=== PATIENT | female | born 1955 | race American Indian/Alaskan Native ===

== ENCOUNTER 2019-09-28 20:53 | Emergency (ER) | payer MEDICAID ==
--- NOTE | 2019-09-28 21:14 | EDM.PDOC ---
ED HPI GENERAL MEDICAL PROBLEM - General Chief Complaint: General Stated Complaint: MEDICAL CLEARANCE Time Seen by Provider: 09/28/19 20:56 Source of Information: Reports: Patient History Limitations: Reports: No Limitations - History of Present Illness INITIAL COMMENTS - FREE TEXT/NARRATIVE: HISTORY AND PHYSICAL: History of present illness: Patient is a 64-year-old female who presents to the emergency room with law enforcement for medical screening exam. Law enforcement states they brought her in as she has a history of hypertension and diabetes wanted to make sure she was cleared to go to [facility]. Patient offers no current complaints or concerns and states she would not be here in the emergency room if she was not brought by law enforcement. She states she has medications at home although does not know what medicine she takes. Denies any alcohol or drug abuse. Review of systems: As per history of present illness and below otherwise all systems reviewed and negative. Past medical history: As per history of present illness and as reviewed below otherwise noncontributory. Surgical history: As per history of present illness and as reviewed below otherwise noncontributory. Social history: See social history for further information Family history: As per history of present illness and as reviewed below otherwise noncontributory. Physical exam: General: Well-developed and well-nourished 64-year-old female. Alert and oriented. Nontoxic-appearing and in no acute distress. HEENT: Atraumatic, normocephalic, pupils equal and reactive bilaterally, negative for conjunctival pallor or scleral icterus, mucous membranes moist, TMs normal bilaterally, throat clear, neck supple, nontender, trachea midline. No drooling or trismus noted. No meningeal signs. No hot potato voice noted. Lungs: Clear to auscultation, breath sounds equal bilaterally, chest nontender. Heart: S1S2, regular rate and rhythm without overt murmur Abdomen: Soft, nondistended, nontender. Skin: Intact, warm, dry. No lesions or rashes noted. Extremities: Atraumatic, moves all extremities per self without difficulty or deficits. Neurovascular unremarkable. Neuro: Awake, alert, oriented. Cranial nerves II through XII unremarkable. Cerebellum unremarkable. Motor and sensory unremarkable throughout. Exam nonfocal. Notes: Patient states she has her medications available to her at home although does not remember the medication she takes. Her vital signs are currently stable and she is cleared to be discharged with law enforcement. Supportive care measures were reviewed and discussed. Voices understanding and is agreeable to plan of care. Denies any further questions or concerns at this time. Diagnostics: None Therapeutics: None Prescription: None Impression: Encounter for medical screening exam Plan: 1. Please use Tylenol and/or Ibuprofen as needed for pain and fever management. 2. Take your home medications as prescribed when able 3. Please follow up with your primary care provider. Return to the ED as needed as discussed. Definitive disposition and diagnosis as appropriate pending reevaluation and review of above. - Related Data Allergies Allergy/AdvReac Type Severity Reaction Status Date / Time No Known Allergies Allergy Verified 01/26/14 21:41 Home Meds: Home Meds Aspirin [[place] Aspirin EC] 81 mg PO DAILY 08/03/16 [History] Brimonidine Tartrate [Brimonidine Tartrate 0.2% Ophth Soln] 1 drop EYEBOTH DAILY 08/03/16 [History] Dorzolamide HCl/Timolol Maleat [Dorzolamide-Timolol Eye Drops] 1 drop EYEBOTH DAILY 08/03/16 [History] Gabapentin [Neurontin] 2 tab PO TID 08/03/16 [History] Glimepiride [Amaryl] 4 mg PO DAILY 08/03/16 [History] Latanoprost [Xalatan 0.005% Ophth Soln] 1 drop EYEBOTH DAILY 08/03/16 [History] Lisinopril 20 mg PO DAILY 08/03/16 [History] Multivitamin [Multivitamins] 1 tab PO DAILY 08/03/16 [History] metFORMIN HCl [Metformin HCl ER] 750 mg PO BEDTIME 08/03/16 [History] Cholecalciferol (Vitamin D3) [Vitamin D3] 1,000 units PO DAILY 08/08/16 [History ] Diclofenac Sodium [Voltaren] 1 applic TOP ASDIRECTED PRN 08/08/16 [History] Estradiol Valerate 1 injection IM ASDIRECTED 08/08/16 [History] Furosemide 20 mg PO DAILY 08/08/16 [History] Pramipexole [Mirapex] 1 tab PO BEDTIME 08/08/16 [History] Past Medical History HEENT History: Reports: Glaucoma, Other (See Below) Other HEENT History: wears glasses, has top denture Cardiovascular History: Reports: Hypertension Genitourinary History: Reports: None Endocrine/Metabolic History: Reports: Diabetes, Type II, Obesity/BMI 30+ - Past Surgical History Female Surgical History: Reports: Hysterectomy, Salpingo-Oophorectomy ED ROS GENERAL - Review of Systems Review Of Systems: Comprehensive ROS is negative, except as noted in HPI. ED EXAM, GENERAL - Physical Exam Exam: See Below (See dictation) Departure - Departure Time of Disposition: 21:22 Disposition: Home, Self-Care 01 Clinical Impression: Encounter for medical screening examination - Discharge Information Referrals: PCP,None [Primary Care Provider] - Forms: ED Department Discharge Additional Instructions: The following information is given to patients seen in the emergency department who are being discharged to home. This information is to outline your options for follow-up care. We provide all patients seen in our emergency department with a follow-up referral. The need for follow-up, as well as the timing and circumstances, are variable depending upon the specifics of your emergency department visit. If you don't have a primary care physician on staff, we will provide you with a referral. We always advise you to contact your personal physician following an emergency department visit to inform them of the circumstance of the visit and for follow-up with them and/or the need for any referrals to a consulting specialist. The emergency department will also refer you to a specialist when appropriate. This referral assures that you have the opportunity for follow-up care with a specialist. All of these measure are taken in an effort to provide you with optimal care, which includes your follow-up. Under all circumstances we always encourage you to contact your private physician who remains a resource for coordinating your care. When calling for follow-up care, please make the office aware that this follow-up is from your recent emergency room visit. If for any reason you are refused follow-up, please contact the [facility] Emergency Department at and asked to speak to the emergency department charge nurse. [facility] [address] [place] [id number] [address] 1. Please use Tylenol and/or Ibuprofen as needed for pain and fever management. 2. Take your home medications as prescribed when able 3. Please follow up with your primary care provider. Return to the ED as needed as discussed. Sepsis Event Note - Focused Exam Date Exam was Performed: 09/28/19 Time Exam was Performed: 21:17
[2019-09-28 21:22] VITALS: BP 140/74; PULSE 89
== END 2019-09-28 21:25 | disposition home or self-care (01) ==
LOC: MW.ED 20:53
DX: Z02.89 Encounter for other administrative examinations (principal); E11.9 Type 2 diabetes mellitus without complications; I10 Essential (primary) hypertension; E66.9 Obesity, unspecified; Z68.30 Body mass index [BMI] 30.0-30.9, adult; Z79.82 Long term (current) use of aspirin; Z79.899 Other long term (current) drug therapy
CPT/HCPCS: 99283

== ENCOUNTER 2019-11-18 09:41 | Emergency (ER) | payer MEDICAID ==
[2019-11-18 10:07] VITALS: BP 140/71
--- NOTE | 2019-11-18 10:17 | EDM.PDOC ---
ED HPI GENERAL MEDICAL PROBLEM - General Chief Complaint: Lower Extremity Injury/Pain Stated Complaint: LEG PAIN Time Seen by Provider: 11/18/19 09:57 Source of Information: Reports: Patient History Limitations: Reports: No Limitations - History of Present Illness INITIAL COMMENTS - FREE TEXT/NARRATIVE: HISTORY AND PHYSICAL: History of present illness: Patient is a 64-year-old female who presents the ED today with concern of left thigh pain that began over the past 3 to 4 days. Patient states she noticed it when she was sitting on the couch and it began as a dull ache. Patient states since then it has continued to worsen and patient states that it radiates down into the left calf and up into the left hip. Patient denies any falls or injuries. Denies any saddle anesthesia or loss or retention of bowel bladder function. Patient denies fever, chills, chest pain, shortness of breath, or cough. Denies headache, neck stiff ness, change in vision, syncope, or near syncope. Denies nausea, vomiting, abdominal pain, diarrhea, constipation, or dysuria. Has not noted any blood in urine or stool. Patient has been eating and drinking appropriately. Review of systems: As per history of present illness and below otherwise all systems reviewed and negative. Past medical history: As per history of present illness and as reviewed below otherwise noncontributory. Surgical history: As per history of present illness and as reviewed below otherwise noncontributory. Social history: See social history for further information Family history: As per history of present illness and as reviewed below otherwise noncontributory. Physical exam: General: Patient is alert, oriented, and in no acute distress. Patient sitting comfortably on exam table. HEENT: Atraumatic, normocephalic, pupils equal and reactive bilaterally, negative for conjunctival pallor or scleral icterus, mucous membranes moist, TMs normal bilaterally, throat clear, neck supple, nontender, trachea midline. No drooling or trismus noted. No meningeal signs. No hot potato voice noted. Lungs: Clear to auscultation, breath sounds equal bilaterally, chest nontender. Heart: S1S2, regular rate and rhythm without overt murmur Abdomen: Soft, nondistended, nontender. Negative for masses or hepatosplenomegaly. Negative for costovertebral tenderness. Pelvis: Stable nontender. Genitourinary: Deferred. Rectal: Deferred. Skin: Intact, warm, dry. No lesions or rashes noted. Extremities: No obvious deformity of the complete spine. No step-offs, crepitus , or point tenderness to palpation of the complete spine. Patient does have pain with palpation of the left SI joint as well as pain with the posterior left thigh and let calf with palpation. No obvious deformity of the complete left extremity. Dorsalis pedis and posterior tibial pulses are grossly intact bilaterally with capillary refill less than 2 seconds. Patient has full range of motion of complete bilateral lower extremities without pain or difficulty. No erythema, warmth, or edema noted of bilateral lower extremities. Otherwise, Atraumatic, negative for cords. Neurovascular unremarkable. Neuro: Awake, alert, oriented. Cranial nerves II through XII unremarkable. Cerebellum unremarkable. Motor and sensory unremarkable throughout. Exam nonfocal. Notes: Discussed importance for follow-up with a primary care provider or orthopedic provider. Voices understanding and is agreeable to plan of care. Denies any further questions or concerns at this time. Diagnostics: Femur XR, Lumbar XR, Venous LE US Therapeutics: None Prescription: None Impression: Left leg pain Plan: 1. Rest, ice, elevate the affected extremity. You can apply ice and or heat 15 minutes on, 15 minutes off. 2. Tylenol as directed for pain management or discomfort. 3. Follow up with the Orthopedic provider and primary care provider as discussed. Return to the ED as needed and as discussed. Definitive disposition and diagnosis as appropriate pending reevaluation and review of above. Left Leg Pain Score (Numeric/FACES): 8 - Related Data Allergies Allergy/AdvReac Type Severity Reaction Status Date / Time No Known Allergies Allergy Verified 11/18/19 10:03 Home Meds: Home Meds Aspirin [[place] Aspirin EC] 81 mg PO DAILY 08/03/16 [History] Brimonidine Tartrate [Brimonidine Tartrate 0.2% Ophth Soln] 1 drop EYEBOTH DAILY 08/03/16 [History] Dorzolamide HCl/Timolol Maleat [Dorzolamide-Timolol Eye Drops] 1 drop EYEBOTH DAILY 08/03/16 [History] Gabapentin [Neurontin] 2 tab PO TID 08/03/16 [History] Glimepiride [Amaryl] 4 mg PO DAILY 08/03/16 [History] Latanoprost [Xalatan 0.005% Ophth Soln] 1 drop EYEBOTH DAILY 08/03/16 [History] Lisinopril 20 mg PO DAILY 08/03/16 [History] Multivitamin [Multivitamins] 1 tab PO DAILY 08/03/16 [History] metFORMIN HCl [Metformin HCl ER] 750 mg PO BEDTIME 08/03/16 [History] Cholecalciferol (Vitamin D3) [Vitamin D3] 1,000 units PO DAILY 08/08/16 [History ] Diclofenac Sodium [Voltaren] 1 applic TOP ASDIRECTED PRN 08/08/16 [History] Estradiol Valerate 1 injection IM ASDIRECTED 08/08/16 [History] Furosemide 20 mg PO DAILY 08/08/16 [History] Pramipexole [Mirapex] 1 tab PO BEDTIME 08/08/16 [History] Past Medical History HEENT History: Reports: Glaucoma, Other (See Below) Other HEENT History: wears glasses, has top denture Cardiovascular History: Reports: Hypertension Genitourinary History: Reports: None Endocrine/Metabolic History: Reports: Diabetes, Type II, Obesity/BMI 30+ - Past Surgical History Head Surgeries/Procedures: Reports: None GI Surgical History: Reports: Cholecystectomy Female Surgical History: Reports: Hysterectomy, Salpingo-Oophorectomy Social & Family History - Family History Family Medical History: Noncontributory - Tobacco Use Smoking Status *Q: Never Smoker Second Hand Smoke Exposure: No - Caffeine Use Caffeine Use: Reports: Coffee, Soda - Recreational Drug Use Recreational Drug Use: No Review of Systems - Review of Systems Review Of Systems: Comprehensive ROS is negative, except as noted in HPI. ED EXAM, GENERAL - Physical Exam Exam: See Below (see dictation) Course - Vital Signs Last Recorded V/S: Last Vital Signs Temp 96.1 F L 11/18/19 10:04 Pulse 63 11/18/19 10:04 Resp 16 11/18/19 10:04 BP 140/71 11/18/19 10:04 Pulse Ox 93 L 11/18/19 10:04 Departure - Departure Time of Disposition: 11:51 Disposition: Home, Self-Care 01 Clinical Impression: Left leg pain - Discharge Information Referrals: Lisette Casillas [employer] [Primary Care Provider] - Forms: ED Department Discharge Additional Instructions: The following information is given to patients seen in the emergency department who are being discharged to home. This information is to outline your options for follow-up care. We provide all patients seen in our emergency department with a follow-up referral. The need for follow-up, as well as the timing and circumstances, are variable depending upon the specifics of your emergency department visit. If you don't have a primary care physician on staff, we will provide you with a referral. We always advise you to contact your personal physician following an emergency department visit to inform them of the circumstance of the visit and for follow-up with them and/or the need for any referrals to a consulting specialist. The emergency department will also refer you to a specialist when appropriate. This referral assures that you have the opportunity for follow-up care with a specialist. All of these measure are taken in an effort to provide you with optimal care, which includes your follow-up. Under all circumstances we always encourage you to contact your private physician who remains a resource for coordinating your care. When calling for follow-up care, please make the office aware that this follow-up is from your recent emergency room visit. If for any reason you are refused follow-up, please contact the [facility] Emergency Department at and asked to speak to the emergency department charge nurse. [facility] [address] [place] [phone] [address] [facility] [address], [address] [place] [address] 1. Rest, ice, elevate the affected extremity. You can apply ice and or heat 15 minutes on, 15 minutes off. 2. Tylenol as directed for pain management or discomfort. 3. Follow up with the Orthopedic provider and primary care provider as discussed. Return to the ED as needed and as discussed. Sepsis Event Note - Evaluation Sepsis Screening Result: No Definite Risk - Focused Exam Vital Signs: Vital Signs Temp Pulse Resp BP Pulse Ox 11/18/19 10:04 96.1 F L 63 16 140/71 93 L Date Exam was Performed: 11/18/19 Time Exam was Performed: 11:50
--- NOTE | 2019-11-18 11:35 | CR ---
Left femur: AP and lateral views left femur were obtained. Comparison: No prior femur exam. Mild joint space narrowing is seen superiorly within the left hip. Mild medial joint space narrowing is noted within the left knee. No acute fracture or other abnormality is identified. Impression: 1. Degenerative change as noted above. 2. Nothing acute is appreciated on 2 view left femur study. Diagnostic code #2 This report was dictated in [place] Standard Time
--- NOTE | 2019-11-18 11:35 | US ---
Left lower extremity deep venous ultrasound: Duplex and color Doppler evaluation was obtained of the left common femoral, superficial femoral, popliteal, posterior tibial and peroneal veins. Comparison: No previous venous imaging. Findings: Normal phasic flow, augmentation and compression is seen. Impression: 1. No evidence of deep venous thrombosis within the left lower extremity. Diagnostic code #1 This report was dictated in [place] Standard Time
--- NOTE | 2019-11-18 11:35 | CR ---
Lumbar spine: AP, lateral and coned-down lateral view centered to the lumbosacral junction are obtained. Moderate to severe disc space narrowing noted at L2-3 and L3-4. Mild disc space narrowing at L4-5. Vertebral body heights are maintained. Scattered endplate osteophytes are seen. Minimal scoliosis is noted. Pedicles are intact. Visualized transverse and spinous processes are intact. Vascular calcification is noted. Surgical clips are seen from prior cholecystectomy. Impression: 1. Mild degenerative change as noted above. 2. Nothing acute is seen. Diagnostic code #2 This report was dictated in [place] Standard Time
[2019-11-18] MEDS ORDERED: Ketorolac 30 MG/ML SDV IM ONE (11:56)
[2019-11-18 12:45] VITALS: PULSE 64
== END 2019-11-18 12:45 | disposition home or self-care (01) ==
LOC: MW.ED 09:41
DX: M79.652 Pain in left thigh (principal); I10 Essential (primary) hypertension; E11.9 Type 2 diabetes mellitus without complications; E66.9 Obesity, unspecified; Z68.30 Body mass index [BMI] 30.0-30.9, adult; Z79.84 Long term (current) use of oral hypoglycemic drugs; Z79.899 Other long term (current) drug therapy
CPT/HCPCS: 72100; 73552; 93971; 96372; 99284; J1885

== ENCOUNTER 2020-06-11 09:53 | Inpatient (IN) | payer MEDICAID, OTHER ==
[2020-06-11] MEDS ORDERED: Dexamethasone 10 MG/ML SDV IVPUSH ONE (10:28)
--- NOTE | 2020-06-11 10:40 | EDM.PDOC ---
ED HPI GENERAL MEDICAL PROBLEM - General Chief Complaint: Cardiovascular Problem Stated Complaint: difficulty breathing Time Seen by Provider: 06/11/20 10:17 Source of Information: Reports: Patient History Limitations: Reports: No Limitations - History of Present Illness INITIAL COMMENTS - FREE TEXT/NARRATIVE: HISTORY AND PHYSICAL: History of present illness: Patient is a 64-year-old female who presents to the ED today with concern of shortness of breath and cough that started yesterday. Patient states that her shortness of breath is worsened today and felt like she cannot breathe so came to the emergency room to be evaluated. Patient states that she has not been in contact with any COVID positive patients that she is aware of. Patient states that she has not taken anything for her symptoms. Patient states she has a history of type 2 diabetes on oral medications and denies any other health history. Patient denies fever, chills, chest pain. Denies headache, neck stiff ness, change in vision, syncope, or near syncope. Denies nausea, vomiting, abdominal pain, diarrhea, constipation, or dysuria. Has not noted any blood in urine or stool. Patient has been eating and drinking appropriately. Review of systems: As per history of present illness and below otherwise all systems reviewed and negative. Past medical history: As per history of present illness and as reviewed below otherwise noncontributory. Surgical history: As per history of present illness and as reviewed below otherwise noncontributory. Social history: See social history for further information Family history: As per history of present illness and as reviewed below otherwise noncontributory. Physical exam: General: Patient is alert, oriented, and in no acute distress. Patient sitting comfortably on exam table but tired appearing. HEENT: Atraumatic, normocephalic, pupils equal and reactive bilaterally, negative for conjunctival pallor or scleral icterus, mucous membranes moist, TMs normal bilaterally, throat clear, neck supple, nontender, trachea midline. No drooling or trismus noted. No meningeal signs. No hot potato voice noted. Lungs: Patient speaking clearly without breathlessness, tachypneic but comfortable appearing, no wheezing or stridor, no accessory muscle use or respiratory distress. Auscultation deferred due to current COV-ID 19 outbreak. Heart:Auscultation deferred due to current COV-ID 19 outbreak. Abdomen: Soft, nondistended, nontender. Negative for masses or hepatosplenomegaly. Negative for costovertebral tenderness. Pelvis: Stable nontender. Genitourinary: Deferred. Rectal: Deferred. Skin: Intact, warm, dry. No lesions or rashes noted. Extremities: Atraumatic, negative for cords or calf pain. Neurovascular unremarkable. Neuro: Awake, alert, oriented. Cranial nerves II through XII unremarkable. Cerebellum unremarkable. Motor and sensory unremarkable throughout. Exam nonfocal. Notes: Dr. Garcia directly involved in patient care. 86-88% on RA, tachypneic but comfortable appearing. 94% on 2L NC, does remain tachypneic throughout ED stay but continually monitored. Called and spoke to Dr. Shine, hospitalist workers compensation claims supervisor, and will admit inpatient on telemetry. Voices understanding and is agreeable to plan of care. Denies any further questions or concerns at this time. Diagnostics: EKG, CBC, CMP, UA, troponin, chest x-ray, d-dimer, ABG, COVID, PT/INR, PTT, Procalcitonin, CRP, ang chest Therapeutics: Saline lock, Decadron, Rocephin 1g IV, Azithromycin 500mg IV Impression: COVID-19 pneumonia Hypoxia Plan: Inpatient admission to Dr. Shine on telemetry Definitive disposition and diagnosis as appropriate pending reevaluation and review of above. - Related Data Allergies Allergy/AdvReac Type Severity Reaction Status Date / Time No Known Allergies Allergy Verified 06/11/20 10:12 Home Meds: Home Meds Aspirin [[place] Aspirin EC] 81 mg PO DAILY 08/03/16 [History] Brimonidine Tartrate [Brimonidine Tartrate 0.2% Ophth Soln] 1 drop EYEBOTH BID 08/03/16 [History] Dorzolamide HCl/Timolol Maleat [Dorzolamide-Timolol Eye Drops] 1 drop EYEBOTH ACBREAKFAST 08/03/16 [History] Glimepiride [Amaryl] 8 mg PO DAILY 08/03/16 [History] Latanoprost [Xalatan 0.005% Ophth Soln] 1 drop EYEBOTH BEDTIME 08/03/16 [History] Multivitamin [Multivitamins] 1 tab PO DAILY 08/03/16 [History] Cholecalciferol (Vitamin D3) [Vitamin D3] 1,000 units PO DAILY 08/08/16 [History] Estradiol Valerate 1 injection IM ASDIRECTED 08/08/16 [History] Furosemide 20 mg PO DAILY 08/08/16 [History] Empagliflozin [Jardiance] 25 mg PO DAILY 06/11/20 [History] Linagliptin [Tradjenta] 5 mg PO DAILY 06/11/20 [History] Loperamide [Imodium] 4 mg PO ASDIRECTED 06/11/20 [History] Losartan [Cozaar] 100 mg PO DAILY 06/11/20 [History] Pioglitazone [Actos] 45 mg PO DAILY 06/11/20 [History] Pregabalin [Lyrica] 75 mg PO TID 06/11/20 [History] traMADol [Ultram] 50 mg PO Q6H PRN 06/11/20 [History] Past Medical History HEENT History: Reports: Glaucoma, Other (See Below) Other HEENT History: wears glasses, has top denture Cardiovascular History: Reports: Hypertension Genitourinary History: Reports: None Endocrine/Metabolic History: Reports: Diabetes, Type II, Obesity/BMI 30+ - Past Surgical History Head Surgeries/Procedures: Reports: None GI Surgical History: Reports: Cholecystectomy Female Surgical History: Reports: Hysterectomy, Salpingo-Oophorectomy Social & Family History - Family History Family Medical History: Noncontributory - Tobacco Use Smoking Status *Q: Never Smoker - Caffeine Use Caffeine Use: Reports: Coffee, Soda - Recreational Drug Use Recreational Drug Use: No ED ROS GENERAL - Review of Systems Review Of Systems: Comprehensive ROS is negative, except as noted in HPI. ED EXAM, GENERAL - Physical Exam Exam: See Below (see dictation) Course - Vital Signs Last Recorded V/S: Last Vital Signs Temp 97.8 F 06/11/20 20:16 Pulse 81 06/11/20 20:16 Resp 18 06/11/20 20:16 BP 145/73 H 06/11/20 20:16 Pulse Ox 92 L 06/11/20 20:16 - Orders/Labs/Meds Orders: Active Orders 24 hr Category Date Time Status Cardiac Monitoring [RC] . DIRECTED Care 06/11/20 10:18 Active EKG 12 Lead [EKG Documentation Completion] [RC] ROUTINE Care 06/11/20 10:05 Active PROCALCITONIN [REF] Stat Lab 06/11/20 10:01 Received UA RFX CAROL AND CULT IF INDIC [URIN] Stat Lab 06/11/20 10:18 Ordered Azithromycin [Zithromax] Med 06/11/20 13:45 Active 500 mg PO Q24H Azithromycin [Zithromax] 500 mg Med 06/11/20 13:45 Active Sodium Chloride 0.9% [Normal Saline (AdvBag)] 250 ml IV ONETIME Enoxaparin [Lovenox] Med 06/11/20 21:00 Active 40 mg SUBCUT Q12HR Sodium Chloride 0.9% [Saline Flush] Med 06/11/20 10:18 Active 10 ml FLUSH ASDIRECTED PRN Sodium Chloride 0.9% [Saline Flush] Med 06/11/20 10:18 Active 2.5 ml FLUSH ASDIRECTED PRN cefTRIAXone [Rocephin] 1 gm Med 06/11/20 13:45 Active Sodium Chloride 0.9% [Normal Saline] 50 ml IV Q24H dexAMETHasone Med 06/12/20 09:00 Active 6 mg PO DAILY Saline Lock Insert [OM.PC] Stat Oth 06/11/20 10:18 Ordered Medication Orders Acetaminophen (Tylenol) 650 mg PO Q4H PRN PRN Reason: Pain (Mild 1-3)/fever Albuterol/Ipratropium (Duoneb 3.0-0.5 Mg/3 Ml) 3 ml NEB Q4HRRT PRN PRN Reason: Shortness of Breath Albuterol/Ipratropium (Combivent Respimat) 0 gm INH Q4H PRN PRN Reason: Dyspnea Azithromycin (Zithromax) 500 mg PO Q24H [facility] Last Admin: 06/11/20 14:54 Dose: 500 mg Documented by: ROSINA Dexamethasone (Dexamethasone) 6 mg PO DAILY [facility] Enoxaparin Sodium (Lovenox) 40 mg SUBCUT Q12HR [facility] Last Admin: 06/11/20 20:20 Dose: 40 mg Documented by: BOGDAN Azithromycin 500 mg/ Sodium (Chloride) 250 mls @ 250 mls/hr IV ONETIME [facility] Ceftriaxone Sodium 1 gm/ (Sodium Chloride) 50 mls @ 100 mls/hr IV Q24H [facility] Last Admin: 06/11/20 14:53 Dose: 100 mls/hr Documented by: ROSINA Remdesivir 100 mg/ Sodium (Chloride) 100 mls @ 100 mls/hr IV Q24H [facility] Insulin Aspart (Novolog) 0 unit SUBCUT TIDAC [facility]; Protocol Last Admin: 06/11/20 18:39 Dose: Not Given Documented by: ALEXIA Non-Formulary Medication (Losartan) 100 mg PO DAILY [facility] Pregabalin (Lyrica) 75 mg PO TID [facility] Last Admin: 06/11/20 18:30 Dose: 75 mg Documented by: ALEXIA Sodium Chloride (Saline Flush) 10 ml FLUSH ASDIRECTED PRN PRN Reason: Keep Vein Open Last Admin: 06/11/20 10:46 Dose: 10 ml Documented by: LES Sodium Chloride (Saline Flush) 2.5 ml FLUSH ASDIRECTED PRN PRN Reason: Keep Vein Open Last Admin: 06/11/20 10:46 Dose: 2.5 ml Documented by: LES Tramadol HCl (Ultram) 50 mg PO Q6H PRN PRN Reason: Pain Labs: Laboratory Tests 06/11/20 06/11/20 06/11/20 Range/Units 10:01 10: 10:01 WBC 8.46 (4.0-11.0) K/uL RBC 5.40 (4.30-5.90) M/uL Hgb 15.9 (12.0-16.0) g/dL Hct 49.6 H (36.0-46.0) % MCV 91.9 (80.0-98.0) fL MCH 29.4 (27.0-32.0) pg MCHC 32.1 (31.0-37.0) g/dL RDW Std Deviation 51.3 (28.0-62.0) fl RDW Coeff of Alec 15 (11.0-15.0) % Plt Count 208 (150-400) K/uL MPV 10.00 (7.40-12.00) fL Add Manual Diff YES Neutrophils % (Manual) 76 (48.0-80.0) % Band Neutrophils % 6 % Lymphocytes % (Manual) 17 (16.0-40.0) % Monocytes % (Manual) 1 (0.0-15.0) % Nucleated RBC % 0.0 /100WBC Absolute Seg Neuts 6.4 H (1.4-5.7) Band Neutrophils # 0.5 Lymphocytes # (Manual) 1.4 (0.6-2.4) Monocytes # (Manual) 0.1 (0.0-0.8) Nucleated RBCs # 0 K/uL INR APTT (18.6-31.3) SEC D-Dimer, Quantitative 1.00 H (0.0-0.50) mg/L FEU ABG pH (7.35-7.45) ABG pCO2 (35-45) mmHG ABG pO2 (75-100) mmHG ABG HCO3 (22-26) mEq/L ABG Total CO2 ABG Base Excess (-2.0-2.0) Sodium 138 (136-145) mmol/L Potassium 3.2 L (3.5-5.1) mmol/L Chloride 101 (98-107) mmol/L Carbon Dioxide 26.7 (21.0-32.0) mmol/L BUN 9 (7.0-18.0) mg/dL Creatinine 0.7 (0.6-1.0) mg/dL Est Cr Clr Drug Dosing 74.02 mL/min Estimated GFR (MDRD) > 60.0 ml/min Glucose 54 L (74-106) mg/dL Calcium 8.5 (8.5-10.1) mg/dL Total Bilirubin 0.7 (0.2-1.0) mg/dL AST 39 H (15-37) IU/L ALT 36 (14-63) IU/L Alkaline Phosphatase 88 (46-116) U/L Troponin I < 0.050 (0.000-0.056) ng/mL C-Reactive Protein (0.00-0.90) mg/dL Total Protein 8.0 (6.4-8.2) g/dL Albumin 3.3 L (3.4-5.0) g/dL Globulin 4.7 H (2.6-4.0) g/dL Albumin/Globulin Ratio 0.7 L (0.9-1.6) Lipase 197 (73-393) U/L SARS-CoV-2 RNA (MARBELLA) (NEGATIVE) 06/11/20 06/11/20 06/11/20 Range/Units 10: 10: 10:31 WBC (4.0-11.0) K/uL RBC (4.30-5.90) M/uL Hgb (12.0-16.0) g/dL Hct (36.0-46.0) % MCV (80.0-98.0) fL MCH (27.0-32.0) pg MCHC (31.0-37.0) g/dL RDW Std Deviation (28.0-62.0) fl RDW Coeff of Alec (11.0-15.0) % Plt Count (150-400) K/uL MPV (7.40-12.00) fL Add Manual Diff Neutrophils % (Manual) (48.0-80.0) % Band Neutrophils % % Lymphocytes % (Manual) (16.0-40.0) % Monocytes % (Manual) (0.0-15.0) % Nucleated RBC % /100WBC Absolute Seg Neuts (1.4-5.7) Band Neutrophils # Lymphocytes # (Manual) (0.6-2.4) Monocytes # (Manual) (0.0-0.8) Nucleated RBCs # K/uL INR 0.98 APTT 32.2 H (18.6-31.3) SEC D-Dimer, Quantitative (0.0-0.50) mg/L FEU ABG pH 7.428 (7.35-7.45) ABG pCO2 39 (35-45) mmHG ABG pO2 60 L (75-100) mmHG ABG HCO3 26 (22-26) mEq/L ABG Total CO2 22.4 ABG Base Excess 1.2 (-2.0-2.0) Sodium (136-145) mmol/L Potassium (3.5-5.1) mmol/L Chloride (98-107) mmol/L Carbon Dioxide (21.0-32.0) mmol/L BUN (7.0-18.0) mg/dL Creatinine (0.6-1.0) mg/dL Est Cr Clr Drug Dosing mL/min Estimated GFR (MDRD) ml/min Glucose (74-106) mg/dL Calcium (8.5-10.1) mg/dL Total Bilirubin (0.2-1.0) mg/dL AST (15-37) IU/L ALT (14-63) IU/L Alkaline Phosphatase (46-116) U/L Troponin I (0.000-0.056) ng/mL C-Reactive Protein 12.80 H (0.00-0.90) mg/dL Total Protein (6.4-8.2) g/dL Albumin (3.4-5.0) g/dL Globulin (2.6-4.0) g/dL Albumin/Globulin Ratio (0.9-1.6) Lipase (73-393) U/L SARS-CoV-2 RNA (MARBELLA) (NEGATIVE) 06/11/20 Range/Units 10:49 WBC (4.0-11.0) K/uL RBC (4.30-5.90) M/uL Hgb (12.0-16.0) g/dL Hct (36.0-46.0) % MCV (80.0-98.0) fL MCH (27.0-32.0) pg MCHC (31.0-37.0) g/dL RDW Std Deviation (28.0-62.0) fl RDW Coeff of Alec (11.0-15.0) % Plt Count (150-400) K/uL MPV (7.40-12.00) fL Add Manual Diff Neutrophils % (Manual) (48.0-80.0) % Band Neutrophils % % Lymphocytes % (Manual) (16.0-40.0) % Monocytes % (Manual) (0.0-15.0) % Nucleated RBC % /100WBC Absolute Seg Neuts (1.4-5.7) Band Neutrophils # Lymphocytes # (Manual) (0.6-2.4) Monocytes # (Manual) (0.0-0.8) Nucleated RBCs # K/uL INR APTT (18.6-31.3) SEC D-Dimer, Quantitative (0.0-0.50) mg/L FEU ABG pH (7.35-7.45) ABG pCO2 (35-45) mmHG ABG pO2 (75-100) mmHG ABG HCO3 (22-26) mEq/L ABG Total CO2 ABG Base Excess (-2.0-2.0) Sodium (136-145) mmol/L Potassium (3.5-5.1) mmol/L Chloride (98-107) mmol/L Carbon Dioxide (21.0-32.0) mmol/L BUN (7.0-18.0) mg/dL Creatinine (0.6-1.0) mg/dL Est Cr Clr Drug Dosing mL/min Estimated GFR (MDRD) ml/min Glucose (74-106) mg/dL Calcium (8.5-10.1) mg/dL Total Bilirubin (0.2-1.0) mg/dL AST (15-37) IU/L ALT (14-63) IU/L Alkaline Phosphatase (46-116) U/L Troponin I (0.000-0.056) ng/mL C-Reactive Protein (0.00-0.90) mg/dL Total Protein (6.4-8.2) g/dL Albumin (3.4-5.0) g/dL Globulin (2.6-4.0) g/dL Albumin/Globulin Ratio (0.9-1.6) Lipase (73-393) U/L SARS-CoV-2 RNA (MARBELLA) POSITIVE H (NEGATIVE) Meds: Medications Generic Name Dose Route Start Last Admin Trade Name Freq PRN Reason Stop Dose Admin Acetaminophen 650 mg 06/11/20 14:17 Tylenol PO Q4H PRN Pain (Mild 1-3)/fever Albuterol/Ipratropium 3 ml 06/11/20 20:53 Duoneb 3.0-0.5 Mg/3 Ml NEB Q4HRRT PRN Shortness of Breath Albuterol/Ipratropium 0 gm 06/11/20 21:03 Combivent Respimat INH Q4H PRN Dyspnea Azithromycin 500 mg 06/11/20 13:45 06/11/20 14:54 Zithromax PO 500 mg Q24H YANIQUE Administration Dexamethasone 6 mg 06/12/20 09:00 Dexamethasone PO DAILY YANIQUE Enoxaparin Sodium 40 mg 06/11/20 21:00 06/11/20 20:20 Lovenox SUBCUT 40 mg Q12HR YANIQUE Administration Azithromycin 500 mg/ Sodium 250 mls @ 250 mls/hr 06/11/20 13:45 Chloride IV ONETIME YANIQUE Ceftriaxone Sodium 1 gm/ 50 mls @ 100 mls/hr 06/11/20 13:45 06/11/20 14:53 Sodium Chloride IV 100 mls/hr Q24H YANIQUE Administration Remdesivir 100 mg/ Sodium 100 mls @ 100 mls/hr 06/12/20 13:45 Chloride IV Q24H YANIQUE Insulin Aspart 0 unit 06/11/20 17:00 06/11/20 18:39 Novolog SUBCUT Not Given TIDAC [facility] Protocol Non-Formulary Medication 100 mg 06/12/20 09:00 Losartan PO DAILY YANIQUE Pregabalin 75 mg 06/11/20 14:00 06/11/20 18:30 Lyrica PO 75 mg TID YANIQUE Administration Sodium Chloride 10 ml 06/11/20 10:18 06/11/20 10:46 Saline Flush FLUSH 10 ml ASDIRECTED PRN Administration Keep Vein Open Sodium Chloride 2.5 ml 06/11/20 10:18 06/11/20 10:46 Saline Flush FLUSH 2.5 ml ASDIRECTED PRN Administration Keep Vein Open Tramadol HCl 50 mg 06/11/20 13:44 Ultram PO Q6H PRN Pain Discontinued Medications Generic Name Dose Route Start Last Admin Trade Name Freq PRN Reason Stop Dose Admin Dexamethasone 6 mg 06/11/20 10:28 06/11/20 10:45 Dexamethasone IVPUSH 06/11/20 10:29 6 mg ONETIME ONE Administration Ceftriaxone Sodium/Dextrose 1 50 mls @ 100 mls/hr 06/11/20 13:41 06/11/20 15:35 gm/ Premix IV 06/11/20 14:10 Not Given ONETIME ONE Remdesivir 200 mg/ Sodium 250 mls @ 250 mls/hr 06/11/20 13:44 06/11/20 18:59 Chloride IV 06/11/20 13:45 250 mls/hr ONETIME ONE Administration Ceftriaxone Sodium/Dextrose Confirm 06/11/20 14:05 06/11/20 14:38 Rocephin In Dextrose,Iso-Osm 1 Gm/50 Ml Administered 06/11/20 14:06 Not Given Dose 50 mls @ as directed .ROUTE .STK-MED ONE Iopamidol 75 ml 06/11/20 13:15 06/11/20 13:15 Isovue Multipack-370 (76%) IVPUSH 06/11/20 13:16 75 ml ONETIME STA Administration Potassium Chloride 40 meq 06/11/20 13:46 06/11/20 14:24 Klor-Con M20 PO 06/11/20 13:47 40 meq ONETIME ONE Administration Departure - Departure Time of Disposition: 13:49 Disposition: Admitted As Inpatient 67 Clinical Impression: Pneumonia due to COVID-19 virus, Hypoxia Sepsis Event Note (ED) - Evaluation Sepsis Screening Result: Possible Sepsis Risk - Focused Exam Vital Signs: Vital Signs Pulse Resp BP Pulse Ox 06/11/20 11:28 80 19 116/49 L 94 L 06/11/20 11:13 80 20 122/51 L 94 L 06/11/20 10:51 86 20 131/71 93 L 06/11/20 10:28 87 20 128/68 93 L 06/11/20 10:13 79 20 137/71 90 L - My Orders Last 24 Hours: My Active Orders 06/11/20 10:01 PROCALCITONIN [REF] Stat 06/11/20 10:05 EKG 12 Lead [EKG Documentation Completion] [RC] ROUTINE 06/11/20 10:18 Cardiac Monitoring [RC] . DIRECTED UA RFX CAROL AND CULT IF INDIC [URIN] Stat Sodium Chloride 0.9% [Saline Flush] 10 ml FLUSH ASDIRECTED PRN Sodium Chloride 0.9% [Saline Flush] 2.5 ml FLUSH ASDIRECTED PRN Saline Lock Insert [OM.PC] Stat 06/11/20 13:45 Azithromycin [Zithromax] 500 mg Sodium Chloride 0.9% [Normal Saline (AdvBag)] 250 ml IV ONETIME - Assessment/Plan Last 24 Hours: My Active Orders 06/11/20 10:01 PROCALCITONIN [REF] Stat 06/11/20 10:05 EKG 12 Lead [EKG Documentation Completion] [RC] ROUTINE 06/11/20 10:18 Cardiac Monitoring [RC] . DIRECTED UA RFX CAROL AND CULT IF INDIC [URIN] Stat Sodium Chloride 0.9% [Saline Flush] 10 ml FLUSH ASDIRECTED PRN Sodium Chloride 0.9% [Saline Flush] 2.5 ml FLUSH ASDIRECTED PRN Saline Lock Insert [OM.PC] Stat 06/11/20 13:45 Azithromycin [Zithromax] 500 mg Sodium Chloride 0.9% [Normal Saline (AdvBag)] 250 ml IV ONETIME
[2020-06-11] MEDS: Sodium Chloride 0.9% 10 ML Syringe FLUSH PRN (10:46)
[2020-06-11] MEDS: Sodium Chloride 0.9% 2.5 ML Syringe FLUSH PRN ×2 (10:46→23:24)
[2020-06-11 10:48] LABS: BLOOD UREA NITROGEN,BUN 9 mg/dL (7.0-18.0); CARBON DIOXIDE,CO2 26.7 mmol/L (21.0-32.0); CHLORIDE,CL 101 mmol/L (98-107); GLUCOSE RANDOM 54 mg/dL (74-106); LIPASE 197 U/L (73-393); POTASSIUM,K 3.2 mmol/L (3.5-5.1); SODIUM,NA 138 mmol/L (136-145)
--- NOTE | 2020-06-11 11:20 | CR ---
INDICATION: Shortness of breath. Hypoxia. TECHNIQUE: AP portable chest. COMPARISON: None. FINDINGS: Shallow inspiration. Interstitial opacities within the mid to lower lungs. Although nonspecific this may reflect edema. A bilateral pneumonitis is considered less likely. Eventration or elevation of the right hemidiaphragm. Overall heart size is at the upper limit of normal. IMPRESSION: Patchy bilateral interstitial infiltrates may reflect edema or diffuse interstitial pneumonitis. Dictated by Mak Cronin MD @ Jun 11 2020 11:17AM Signed by Dr. Mak Cronin @ Jun 11 2020 11:17AM
--- NOTE | 2020-06-11 13:06 | CT ---
INDICATION: SOB. Elevated D-dimer. COVID-19 positive. Rule out pulmonary embolism. TECHNIQUE: Volumetric helical scanning of the thorax was performed during infusion of 75 cc of Isovue 370 contrast material IV, timing optimized for pulmonary arterial opacification. Coronal and sagittal reconstructions were obtained. COMPARISON: None. FINDINGS: The images are of acceptable quality and demonstrate uniform vascular enhancement within the pulmonary arteries. No pulmonary arterial filling defect is identified. The heart size is normal. Patchy infiltrates are present throughout both lungs. No pleural effusion is demonstrated. No airway abnormality is evident. No mediastinal or hilar lymphadenopathy is demonstrated. Images of the upper abdomen are unremarkable except for postop changes of cholecystectomy. IMPRESSION: 1. Negative for pulmonary embolism. 2. Patchy infiltrates throughout both lungs. Commonly reported imaging features of COVID-19 pneumonia are present. Other processes such is influenza pneumonia and organizing pneumonia, as can be seen as well as drug toxicity and connective tissue disease can cause similar imaging pattern. 3. Post cholecystectomy. Please note that all CT scans at this facility use dose modulation, iterative reconstruction, and/or weight-based dosing when appropriate to reduce radiation dose to as low as reasonably achievable. Dictated by Cedric Gerber MD @ Jun 11 2020 12:59PM Signed by Dr. Cedric Gebrer @ Jun 11 2020 1:04PM
[2020-06-11] MEDS ORDERED: Iopamidol 755 MG/ML 500 ML Multipack Bottle IVPUSH STA (13:15)
[2020-06-11] MEDS ORDERED: cefTRIAXone 1 GM in Premix Bag 1 BAG IV ONE (13:41)
[2020-06-11] MEDS ORDERED: traMADol 50 MG Tab PO PRN (13:44)
[2020-06-11] MEDS ORDERED: Azithromycin 500 MG in Sodium Chloride 0.9% 250 ML IV SCH (13:45)
[2020-06-11] MEDS ORDERED: cefTRIAXone 1 GM in Sodium Chloride 0.9% 50 ML IV SCH (13:45)
[2020-06-11] MEDS ORDERED: Azithromycin 250 MG Tab PO SCH (13:45)
[2020-06-11] MEDS ORDERED: Potassium Chloride 20 MEQ Tab.ER PO ONE (13:46)
--- NOTE | 2020-06-11 14:24 | PCM.HP.2 ---
H&P History of Present Illness - General Date of Service: 06/11/20 Admit Problem/Dx: Admission Diagnosis/Problem Admission Diagnosis/Problem Pneumonia - History of Present Illness Initial Comments - Free Text/Narative: 64 yo female with pmh of DM and HTN who presented to the ED with two day of short of breath, fevers, productive cough and nausea. Patient reports she gets short of breath with any movement. In the ED she was sating mid 80s on RA requring 2 L NC to keep sats above 90%. CT scan of chest was negative for PE and showed bilateral patchy airspace disease. She was COVID positive. - Related Data Allergies/Adverse Reactions: Allergies Allergy/AdvReac Type Severity Reaction Status Date / Time No Known Allergies Allergy Verified 06/11/20 10:12 Home Medications: Home Meds Aspirin [[place] Aspirin EC] 81 mg PO DAILY 08/03/16 [History] Brimonidine Tartrate [Brimonidine Tartrate 0.2% Ophth Soln] 1 drop EYEBOTH BID 1 10/03/15 [History] Dorzolamide HCl/Timolol Maleat [Dorzolamide-Timolol Eye Drops] 1 drop EYEBOTH ACBREAKFAST 08/03/16 [History] Glimepiride [Amaryl] 8 mg PO DAILY 08/03/16 [History] Latanoprost [Xalatan 0.005% Ophth Soln] 1 drop EYEBOTH BEDTIME 08/03/16 [History] Multivitamin [Multivitamins] 1 tab PO DAILY 08/03/16 [History] Cholecalciferol (Vitamin D3) [Vitamin D3] 1,000 units PO DAILY 08/08/16 [H istory] Estradiol Valerate 1 injection IM ASDIRECTED 08/08/16 [History] Furosemide 20 mg PO DAILY 08/08/16 [History] Empagliflozin [Jardiance] 25 mg PO DAILY 06/11/20 [History] Linagliptin [Tradjenta] 5 mg PO DAILY 06/11/20 [History] Loperamide [Imodium] 4 mg PO ASDIRECTED 06/11/20 [History] Losartan [Cozaar] 100 mg PO DAILY 06/11/20 [History] Pioglitazone [Actos] 45 mg PO DAILY 06/11/20 [History] Pregabalin [Lyrica] 75 mg PO TID 06/11/20 [History] traMADol [Ultram] 50 mg PO Q6H PRN 06/11/20 [History] Past Medical History HEENT History: Reports: Glaucoma, Other (See Below) Other HEENT History: wears glasses, has top denture Cardiovascular History: Reports: Hypertension Genitourinary History: Reports: None Endocrine/Metabolic History: Reports: Diabetes, Type II, Obesity/BMI 30+ - Past Surgical History Head Surgeries/Procedures: Reports: None GI Surgical History: Reports: Cholecystectomy Female Surgical History: Reports: Hysterectomy, Salpingo-Oophorectomy Social & Family History - Family History Family Medical History: Noncontributory - Tobacco Use Smoking Status *Q: Never Smoker - Caffeine Use Caffeine Use: Reports: Coffee, Soda - Recreational Drug Use Recreational Drug Use: No H&P Review of Systems - Review of Systems: Review Of Systems: Comprehensive ROS is negative, except as noted in HPI. Exam - Exam Exam: See Below - Vital Signs Vital Signs: Last Vital Signs Temp 35.6 C L 06/11/20 10:00 Pulse 80 06/11/20 11:28 Resp 19 06/11/20 11:28 BP 116/49 L 06/11/20 11:28 Pulse Ox 94 L 06/11/20 11:28 Weight: 86.183 kg - Exam General: Alert, Oriented HEENT: Mucosa Moist & [place] Neck: Supple Lungs: Normal Respiratory Effort, Rhonchi, Wheezing GI/Abdominal Exam: Normal Bowel Sounds, Soft, Non-Tender Extremities: Non-Tender, No Pedal Edema Skin: Warm, Dry, Intact - Patient Data Lab Results Last 24 hrs: Laboratory Results - last 24 hr 06/11/20 06/11/20 06/11/20 Range/Units 10: 10: 10:01 WBC 8.46 (4.0-11.0) K/uL RBC 5.40 (4.30-5.90) M/uL Hgb 15.9 (12.0-16.0) g/dL Hct 49.6 H (36.0-46.0) % MCV 91.9 (80.0-98.0) fL MCH 29.4 (27.0-32.0) pg MCHC 32.1 (31.0-37.0) g/dL RDW Std Deviation 51.3 (28.0-62.0) fl RDW Coeff of Alec 15 (11.0-15.0) % Plt Count 208 (150-400) K/uL MPV 10.00 (7.40-12.00) fL Add Manual Diff YES Neutrophils % (Manual) 76 (48.0-80.0) % Band Neutrophils % 6 % Lymphocytes % (Manual) 17 (16.0-40.0) % Monocytes % (Manual) 1 (0.0-15.0) % Nucleated RBC % 0.0 /100WBC Absolute Seg Neuts 6.4 H (1.4-5.7) Band Neutrophils # 0.5 Lymphocytes # (Manual) 1.4 (0.6-2.4) Monocytes # (Manual) 0.1 (0.0-0.8) Nucleated RBCs # 0 K/uL INR APTT (18.6-31.3) SEC D-Dimer, Quantitative 1.00 H (0.0-0.50) mg/L FEU ABG pH (7.35-7.45) ABG pCO2 (35-45) mmHG ABG pO2 (75-100) mmHG ABG HCO3 (22-26) mEq/L ABG Total CO2 ABG Base Excess (-2.0-2.0) Sodium 138 (136-145) mmol/L Potassium 3.2 L (3.5-5.1) mmol/L Chloride 101 (98-107) mmol/L Carbon Dioxide 26.7 (21.0-32.0) mmol/L BUN 9 (7.0-18.0) mg/dL Creatinine 0.7 (0.6-1.0) mg/dL Est Cr Clr Drug Dosing 74.02 mL/min Estimated GFR (MDRD) > 60.0 ml/min Glucose 54 L (74-106) mg/dL Calcium 8.5 (8.5-10.1) mg/dL Total Bilirubin 0.7 (0.2-1.0) mg/dL AST 39 H (15-37) IU/L ALT 36 (14-63) IU/L Alkaline Phosphatase 88 (46-116) U/L Troponin I < 0.050 (0.000-0.056) ng/mL C-Reactive Protein (0.00-0.90) mg/dL Total Protein 8.0 (6.4-8.2) g/dL Albumin 3.3 L (3.4-5.0) g/dL Globulin 4.7 H (2.6-4.0) g/dL Albumin/Globulin Ratio 0.7 L (0.9-1.6) Lipase 197 (73-393) U/L SARS-CoV-2 RNA (MARBELLA) (NEGATIVE) 06/11/20 06/11/20 06/11/20 Range/Units 10: 10: 10:31 WBC (4.0-11.0) K/uL RBC (4.30-5.90) M/uL Hgb (12.0-16.0) g/dL Hct (36.0-46.0) % MCV (80.0-98.0) fL MCH (27.0-32.0) pg MCHC (31.0-37.0) g/dL RDW Std Deviation (28.0-62.0) fl RDW Coeff of Alec (11.0-15.0) % Plt Count (150-400) K/uL MPV (7.40-12.00) fL Add Manual Diff Neutrophils % (Manual) (48.0-80.0) % Band Neutrophils % % Lymphocytes % (Manual) (16.0-40.0) % Monocytes % (Manual) (0.0-15.0) % Nucleated RBC % /100WBC Absolute Seg Neuts (1.4-5.7) Band Neutrophils # Lymphocytes # (Manual) (0.6-2.4) Monocytes # (Manual) (0.0-0.8) Nucleated RBCs # K/uL INR 0.98 APTT 32.2 H (18.6-31.3) SEC D-Dimer, Quantitative (0.0-0.50) mg/L FEU ABG pH 7.428 (7.35-7.45) ABG pCO2 39 (35-45) mmHG ABG pO2 60 L (75-100) mmHG ABG HCO3 26 (22-26) mEq/L ABG Total CO2 22.4 ABG Base Excess 1.2 (-2.0-2.0) Sodium (136-145) mmol/L Potassium (3.5-5.1) mmol/L Chloride (98-107) mmol/L Carbon Dioxide (21.0-32.0) mmol/L BUN (7.0-18.0) mg/dL Creatinine (0.6-1.0) mg/dL Est Cr Clr Drug Dosing mL/min Estimated GFR (MDRD) ml/min Glucose (74-106) mg/dL Calcium (8.5-10.1) mg/dL Total Bilirubin (0.2-1.0) mg/dL AST (15-37) IU/L ALT (14-63) IU/L Alkaline Phosphatase (46-116) U/L Troponin I (0.000-0.056) ng/mL C-Reactive Protein 12.80 H (0.00-0.90) mg/dL Total Protein (6.4-8.2) g/dL Albumin (3.4-5.0) g/dL Globulin (2.6-4.0) g/dL Albumin/Globulin Ratio (0.9-1.6) Lipase (73-393) U/L SARS-CoV-2 RNA (MARBELLA) (NEGATIVE) 06/11/20 Range/Units 10:49 WBC (4.0-11.0) K/uL RBC (4.30-5.90) M/uL Hgb (12.0-16.0) g/dL Hct (36.0-46.0) % MCV (80.0-98.0) fL MCH (27.0-32.0) pg MCHC (31.0-37.0) g/dL RDW Std Deviation (28.0-62.0) fl RDW Coeff of Alec (11.0-15.0) % Plt Count (150-400) K/uL MPV (7.40-12.00) fL Add Manual Diff Neutrophils % (Manual) (48.0-80.0) % Band Neutrophils % % Lymphocytes % (Manual) (16.0-40.0) % Monocytes % (Manual) (0.0-15.0) % Nucleated RBC % /100WBC Absolute Seg Neuts (1.4-5.7) Band Neutrophils # Lymphocytes # (Manual) (0.6-2.4) Monocytes # (Manual) (0.0-0.8) Nucleated RBCs # K/uL INR APTT (18.6-31.3) SEC D-Dimer, Quantitative (0.0-0.50) mg/L FEU ABG pH (7.35-7.45) ABG pCO2 (35-45) mmHG ABG pO2 (75-100) mmHG ABG HCO3 (22-26) mEq/L ABG Total CO2 ABG Base Excess (-2.0-2.0) Sodium (136-145) mmol/L Potassium (3.5-5.1) mmol/L Chloride (98-107) mmol/L Carbon Dioxide (21.0-32.0) mmol/L BUN (7.0-18.0) mg/dL Creatinine (0.6-1.0) mg/dL Est Cr Clr Drug Dosing mL/min Estimated GFR (MDRD) ml/min Glucose (74-106) mg/dL Calcium (8.5-10.1) mg/dL Total Bilirubin (0.2-1.0) mg/dL AST (15-37) IU/L ALT (14-63) IU/L Alkaline Phosphatase (46-116) U/L Troponin I (0.000-0.056) ng/mL C-Reactive Protein (0.00-0.90) mg/dL Total Protein (6.4-8.2) g/dL Albumin (3.4-5.0) g/dL Globulin (2.6-4.0) g/dL Albumin/Globulin Ratio (0.9-1.6) Lipase (73-393) U/L SARS-CoV-2 RNA (MARBELLA) POSITIVE H (NEGATIVE) Result Diagrams: 06/11/20 10:01 06/11/20 10:01 Sepsis Event Note - Evaluation Sepsis Screening Result: Possible Sepsis Risk - Focused Exam Vital Signs: Vital Signs Temp Pulse Resp BP Pulse Ox 06/11/20 11:28 80 19 116/49 L 94 L 06/11/20 11:13 80 20 122/51 L 94 L 06/11/20 10:51 86 20 131/71 93 L 06/11/20 10:28 87 20 128/68 93 L 06/11/20 10:13 79 20 137/71 90 L 06/11/20 10:00 35.6 C L 70 26 H 135/55 L 94 L Problem List Initiated/Reviewed/Updated: Yes Orders Last 24hrs: Active Orders 24 hr Category Date Time Status Admission Status [Patient Status] [ADT] Stat ADT 06/11/20 13:46 Active Accu Check [Blood Glucose Check, Bedside] [RC] ONETIME Care 06/11/20 13:45 Ordered Accu Check [Blood Glucose Check, Bedside] [RC] TIDAC Care 06/11/20 13:45 Ord ered Antiembolic Devices [RC] PER UNIT ROUTINE Care 06/11/20 14:18 Ordered Cardiac Monitoring [RC] . DIRECTED Care 06/11/20 10:18 Active EKG 12 Lead [EKG Documentation Completion] [RC] ROUTINE Care 06/11/20 10:05 Active Overnight Pulse Oximetry [RC] Click to Edit Care 06/11/20 13:46 Ordered Oxygen Therapy [RC] PRN Care 06/11/20 14:17 Ordered Up ad Caryl [RC] ASDIRECTED Care 06/11/20 14:17 Ordered VTE/DVT Education [RC] PER UNIT ROUTINE Care 06/11/20 14:17 Ordered Vital Signs [RC] Q4H Care 06/11/20 14:17 Ordered [place] [employer] Diet [DIET] Diet 06/11/20 Breakfast Ordered CBC WITH AUTO DIFF [HEME] AM Lab 06/12/20 05:11 Ordered COMPREHENSIVE METABOLIC PN,CMP [CHEM] AM Lab 06/12/20 05:11 Ordered CULTURE BLOOD [BC] Stat Lab 06/11/20 13:57 Ordered CULTURE BLOOD [BC] Stat Lab 06/11/20 13:57 Ordered LACTATE WITH REFLEX [BG] Stat Lab 06/11/20 13:57 Ordered PROCALCITONIN [REF] Stat Lab 06/11/20 10:01 Received UA RFX CAROL AND CULT IF INDIC [URIN] Stat Lab 06/11/20 10:18 Ordered Acetaminophen [TylenoL] Med 06/11/20 14:17 Ordered 650 mg PO Q4H PRN Azithromycin [Zithromax] Med 06/11/20 13:45 Ordered 500 mg PO Q24H Azithromycin [Zithromax] 500 mg Med 06/11/20 13:45 Active Sodium Chloride 0.9% [Normal Saline (AdvBag)] 250 ml IV ONETIME Enoxaparin [Lovenox] Med 06/11/20 21:00 Ordered 40 mg SUBCUT Q12HR Insulin Aspart [NovoLOG] Med 06/11/20 17:00 Ordered See Protocol SUBCUT TIDAC Losartan Med 06/12/20 09:00 Ordered 100 mg PO DAILY Pregabalin [Lyrica] Med 06/11/20 14:00 Ordered 75 mg PO TID Remdesivir (Eua) [Remdesivir (EUA)] 100 mg Med 06/12/20 13:45 Ordered Sodium Chloride 0.9% [Normal Saline] 100 ml IV Q24H Sodium Chloride 0.9% [Saline Flush] Med 06/11/20 10:18 Active 10 ml FLUSH ASDIRECTED PRN Sodium Chloride 0.9% [Saline Flush] Med 06/11/20 10:18 Active 2.5 ml FLUSH ASDIRECTED PRN cefTRIAXone [Rocephin] 1 gm Med 06/11/20 13:45 Ordered Sodium Chloride 0.9% [Normal Saline] 50 ml IV Q24H dexAMETHasone Med 06/12/20 09:00 Ordered 6 mg PO DAILY traMADol [Ultram] Med 06/11/20 13:44 Ordered 50 mg PO Q6H PRN Blood Culture x2 Reflex Set [OM.PC] Stat Oth 06/11/20 13:57 Ordered Pulse Oximetry Continuous Monitoring [OM.PC] Routine Oth 06/11/20 13:46 Ordered Saline Lock Insert [OM.PC] Stat Oth 06/11/20 10:18 Ordered Sequential Compression Device [OM.PC] Per Unit Routine Oth 06/11/20 14:17 Ordered Resuscitation Status Routine Resus Stat 06/11/20 14:17 Ordered Medication Orders Azithromycin (Zithromax) 500 mg PO Q24H YANIQUE Dexamethasone (Dexamethasone) 6 mg PO DAILY YANIQUE Enoxaparin Sodium (Lovenox) 40 mg SUBCUT Q12HR YANIQUE Azithromycin 500 mg/ Sodium (Chloride) 250 mls @ 250 mls/hr IV ONETIME YANIQUE Ceftriaxone Sodium 1 gm/ (Sodium Chloride) 50 mls @ 100 mls/hr IV Q24H YANIQUE Remdesivir 100 mg/ Sodium (Chloride) 100 mls @ 100 mls/hr IV Q24H YANIQUE Insulin Aspart (Novolog) 0 unit SUBCUT TIDAC YANIQUE; Protocol Non-Formulary Medication (Losartan) 100 mg PO DAILY YANIQUE Pregabalin (Lyrica) 75 mg PO TID YANIQUE Sodium Chloride (Saline Flush) 10 ml FLUSH ASDIRECTED PRN PRN Reason: Keep Vein Open Last Admin: 06/11/20 10:46 Dose: 10 ml Documented by: CHELYATOCeline Sodium Chloride (Saline Flush) 2.5 ml FLUSH ASDIRECTED PRN PRN Reason: Keep Vein Open Last Admin: 06/11/20 10:46 Dose: 2.5 ml Documented by: CHELYATOCeline Tramadol HCl (Ultram) 50 mg PO Q6H PRN PRN Reason: Pain Assessment/Plan Comment:: 64 yo female admitted for COVID pneumonia. COVID: treating with supplement O2 via NC, dexamethasone, Remdesivir and BID lovenox. Patient given fact sheet and explain emergency use FDA authorization of Remdesivir. She was explained side effects including hepatitis and anaphylaxis and consents to treatment. Treating with Rocephin and Azithromycin for possible pneumonia DM: sliding scale insulin, will repeat accu check as glucose is low in ED. Patient did drink juice.
[2020-06-11] MEDS: Pregabalin 75 MG Cap PO SCH ×2 (18:30→23:14)
[2020-06-11] MEDS: Insulin Aspart 100 Units/ML 3 ML Pen SUBCUT SCH (18:39)
[2020-06-11] MEDS: Enoxaparin 40 MG/0.4 ML Syringe SUBCUT SCH (20:20)
[2020-06-11] MEDS ORDERED: Albuterol/Ipratropium 3.0-0.5 MG/3 ML Neb Soln NEB PRN (20:53)
[2020-06-11] MEDS: Albuterol/Ipratropium 4 GM Inhalation Spray INH PRN (22:15)
[2020-06-12] MEDS: Albuterol/Ipratropium 4 GM Inhalation Spray INH PRN (03:59)
[2020-06-12] MEDS ORDERED: 50% Dextrose in Water 50 ML Syringe IVPUSH PRN (05:49)
[2020-06-12] MEDS ORDERED: 50% Dextrose in Water 50 ML Syringe ONE (05:59)
[2020-06-12] MEDS: Pregabalin 75 MG Cap PO SCH ×3 (06:51→21:06)
[2020-06-12 07:34] LABS: BLOOD UREA NITROGEN,BUN 13 mg/dL (7.0-18.0); CARBON DIOXIDE,CO2 27.1 mmol/L (21.0-32.0); CHLORIDE,CL 104 mmol/L (98-107); GLUCOSE RANDOM 175 mg/dL (74-106); SODIUM,NA 139 mmol/L (136-145)
[2020-06-12] MEDS: Insulin Aspart 100 Units/ML 3 ML Pen SUBCUT SCH (08:08)
[2020-06-12] MEDS: Dexamethasone 4 MG Tab PO SCH (09:30)
[2020-06-12] MEDS: Enoxaparin 40 MG/0.4 ML Syringe SUBCUT SCH ×2 (09:30→21:06)
[2020-06-12] MEDS: Losartan 50 MG Tab PO SCH (09:31)
--- NOTE | 2020-06-12 11:29 | PCM.PN ---
- General Info Date of Service: 06/12/20 Admission Dx/Problem (Free Text): Admission Diagnosis/Problem Admission Diagnosis/Problem Pneumonia Subjective Update: on BiPAP states she feels better on BiPAP, no chest pain, c/o SOB Functional Status: Reports: Urinating. Denies: Tolerating Diet, Ambulating - Review of Systems General: Reports: Fever, Weakness, Fatigue Pulmonary: Reports: Shortness of Breath, Cough. Denies: Pleuritic Chest Pain, Sputum Gastrointestinal: Denies: Abdominal Pain, Constipation, Decreased Appetite Genitourinary: Denies: Dysuria, Frequency, Burning Musculoskeletal: Denies: Neck Pain, Shoulder Pain, Arm Pain, Hand Pain Skin: Denies: Cyanosis, Jaundice, Mottled - Patient Data Vitals - Most Recent: Last Vital Signs Temp 37.2 C 06/12/20 09:30 Pulse 85 06/12/20 11:00 Resp 35 H 06/12/20 11:00 BP 122/55 L 06/12/20 11:00 Pulse Ox 96 06/12/20 11:00 Weight - Most Recent: 84.595 kg I&O - Last 24 Hours: Intake & Output 06/11/20 06/12/20 06/12/20 22:59 06:59 14:59 Intake Total 420 Output Total 650 Balance -230 Lab Results Last 24 Hours: Laboratory Results - last 24 hr 06/11/20 06/11/20 06/11/20 Range/Units 10:01 10:49 14:15 WBC (4.0-11.0) K/uL RBC (4.30-5.90) M/uL Hgb (12.0-16.0) g/dL Hct (36.0-46.0) % MCV (80.0-98.0) fL MCH (27.0-32.0) pg MCHC (31.0-37.0) g/dL RDW Std Deviation (28.0-62.0) fl RDW Coeff of Alec (11.0-15.0) % Plt Count (150-400) K/uL MPV (7.40-12.00) fL Neut % (Auto) (48.0-80.0) % Lymph % (Auto) (16.0-40.0) % Hardeman % (Auto) (0.0-15.0) % Eos % (Auto) (0.0-7.0) % Baso % (Auto) (0.0-1.5) % Neut # (Auto) (1.4-5.7) K/uL Lymph # (Auto) (0.6-2.4) K/uL Hardeman # (Auto) (0.0-0.8) K/uL Eos # (Auto) (0.0-0.7) K/uL Baso # (Auto) (0.0-0.1) K/uL Nucleated RBC % /100WBC Nucleated RBCs # K/uL Lactate 0.9 (0.20-2.00) mmol/L Sodium (136-145) mmol/L Potassium (3.5-5.1) mmol/L Chloride (98-107) mmol/L Carbon Dioxide (21.0-32.0) mmol/L BUN (7.0-18.0) mg/dL Creatinine (0.6-1.0) mg/dL Est Cr Clr Drug Dosing mL/min Estimated GFR (MDRD) ml/min Glucose (74-106) mg/dL POC Glucose (60-110) mg/dL Calcium (8.5-10.1) mg/dL Total Bilirubin (0.2-1.0) mg/dL AST (15-37) IU/L ALT (14-63) IU/L Alkaline Phosphatase (46-116) U/L Total Protein (6.4-8.2) g/dL Albumin (3.4-5.0) g/dL Globulin (2.6-4.0) g/dL Albumin/Globulin Ratio (0.9-1.6) Procalcitonin <0.05 (<0.10) ng/mL Urine Color Urine Appearance Urine pH (5.0-8.0) Ur Specific Hickman (1.001-1.035) Urine Protein (NEGATIVE) mg/dL Urine Glucose (UA) (NEGATIVE) mg/dL Urine Ketones (NEGATIVE) mg/dL Urine Occult Blood (NEGATIVE) Urine Nitrite (NEGATIVE) Urine Bilirubin (NEGATIVE) Urine Urobilinogen (<2.0) EU/dL Ur Leukocyte Esterase (NEGATIVE) Urine RBC (0-2/HPF) Urine WBC (0-5/HPF) Ur Epithelial Cells (NONE-FEW) Urine Bacteria (NEGATIVE) Urine Mucus (NONE-MOD) Urine Yeast SARS-CoV-2 RNA (MARBELLA) POSITIVE H (NEGATIVE) 06/11/20 06/11/20 06/11/20 Range/Units 18:33 19:35 22:00 WBC (4.0-11.0) K/uL RBC (4.30-5.90) M/uL Hgb (12.0-16.0) g/dL Hct (36.0-46.0) % MCV (80.0-98.0) fL MCH (27.0-32.0) pg MCHC (31.0-37.0) g/dL RDW Std Deviation (28.0-62.0) fl RDW Coeff of Alec (11.0-15.0) % Plt Count (150-400) K/uL MPV (7.40-12.00) fL Neut % (Auto) (48.0-80.0) % Lymph % (Auto) (16.0-40.0) % Hardeman % (Auto) (0.0-15.0) % Eos % (Auto) (0.0-7.0) % Baso % (Auto) (0.0-1.5) % Neut # (Auto) (1.4-5.7) K/uL Lymph # (Auto) (0.6-2.4) K/uL Hardeman # (Auto) (0.0-0.8) K/uL Eos # (Auto) (0.0-0.7) K/uL Baso # (Auto) (0.0-0.1) K/uL Nucleated RBC % /100WBC Nucleated RBCs # K/uL Lactate (0.20-2.00) mmol/L Sodium (136-145) mmol/L Potassium (3.5-5.1) mmol/L Chloride (98-107) mmol/L Carbon Dioxide (21.0-32.0) mmol/L BUN (7.0-18.0) mg/dL Creatinine (0.6-1.0) mg/dL Est Cr Clr Drug Dosing mL/min Estimated GFR (MDRD) ml/min Glucose (74-106) mg/dL POC Glucose 62 109 (60-110) mg/dL Calcium (8.5-10.1) mg/dL Total Bilirubin (0.2-1.0) mg/dL AST (15-37) IU/L ALT (14-63) IU/L Alkaline Phosphatase (46-116) U/L Total Protein (6.4-8.2) g/dL Albumin (3.4-5.0) g/dL Globulin (2.6-4.0) g/dL Albumin/Globulin Ratio (0.9-1.6) Procalcitonin (<0.10) ng/mL Urine Color YELLOW Urine Appearance HAZY Urine pH 5.5 (5.0-8.0) Ur Specific Hickman 1.015 (1.001-1.035) Urine Protein TRACE H (NEGATIVE) mg/dL Urine Glucose (UA) >=1000 (NEGATIVE) mg/dL Urine Ketones TRACE H (NEGATIVE) mg/dL Urine Occult Blood NEGATIVE (NEGATIVE) Urine Nitrite NEGATIVE (NEGATIVE) Urine Bilirubin NEGATIVE (NEGATIVE) Urine Urobilinogen 1.0 (<2.0) EU/dL Ur Leukocyte Esterase NEGATIVE (NEGATIVE) Urine RBC 0-2 (0-2/HPF) Urine WBC 1-3 (0-5/HPF) Ur Epithelial Cells MODERATE (NONE-FEW) Urine Bacteria FEW (NEGATIVE) Urine Mucus LIGHT (NONE-MOD) Urine Yeast MANY SARS-CoV-2 RNA (MARBELLA) (NEGATIVE) 06/12/20 06/12/20 06/12/20 Range/Units 05:36 05:42 05:52 WBC (4.0-11.0) K/uL RBC (4.30-5.90) M/uL Hgb (12.0-16.0) g/dL Hct (36.0-46.0) % MCV (80.0-98.0) fL MCH (27.0-32.0) pg MCHC (31.0-37.0) g/dL RDW Std Deviation (28.0-62.0) fl RDW Coeff of Alec (11.0-15.0) % Plt Count (150-400) K/uL MPV (7.40-12.00) fL Neut % (Auto) (48.0-80.0) % Lymph % (Auto) (16.0-40.0) % Hardeman % (Auto) (0.0-15.0) % Eos % (Auto) (0.0-7.0) % Baso % (Auto) (0.0-1.5) % Neut # (Auto) (1.4-5.7) K/uL Lymph # (Auto) (0.6-2.4) K/uL Hardeman # (Auto) (0.0-0.8) K/uL Eos # (Auto) (0.0-0.7) K/uL Baso # (Auto) (0.0-0.1) K/uL Nucleated RBC % /100WBC Nucleated RBCs # K/uL Lactate (0.20-2.00) mmol/L Sodium (136-145) mmol/L Potassium (3.5-5.1) mmol/L Chloride (98-107) mmol/L Carbon Dioxide (21.0-32.0) mmol/L BUN (7.0-18.0) mg/dL Creatinine (0.6-1.0) mg/dL Est Cr Clr Drug Dosing mL/min Estimated GFR (MDRD) ml/min Glucose (74-106) mg/dL POC Glucose 49 L 47 L 52 L (60-110) mg/dL Calcium (8.5-10.1) mg/dL Total Bilirubin (0.2-1.0) mg/dL AST (15-37) IU/L ALT (14-63) IU/L Alkaline Phosphatase (46-116) U/L Total Protein (6.4-8.2) g/dL Albumin (3.4-5.0) g/dL Globulin (2.6-4.0) g/dL Albumin/Globulin Ratio (0.9-1.6) Procalcitonin (<0.10) ng/mL Urine Color Urine Appearance Urine pH (5.0-8.0) Ur Specific Hickman (1.001-1.035) Urine Protein (NEGATIVE) mg/dL Urine Glucose (UA) (NEGATIVE) mg/dL Urine Ketones (NEGATIVE) mg/dL Urine Occult Blood (NEGATIVE) Urine Nitrite (NEGATIVE) Urine Bilirubin (NEGATIVE) Urine Urobilinogen (<2.0) EU/dL Ur Leukocyte Esterase (NEGATIVE) Urine RBC (0-2/HPF) Urine WBC (0-5/HPF) Ur Epithelial Cells (NONE-FEW) Urine Bacteria (NEGATIVE) Urine Mucus (NONE-MOD) Urine Yeast SARS-CoV-2 RNA (MARBELLA) (NEGATIVE) 06/12/20 06/12/20 06/12/20 Range/Units 06:12 06:51 06:51 WBC 8.88 (4.0-11.0) K/uL RBC 5.04 (4.30-5.90) M/uL Hgb 14.4 (12.0-16.0) g/dL Hct 46.5 H (36.0-46.0) % MCV 92.3 (80.0-98.0) fL MCH 28.6 (27.0-32.0) pg MCHC 31.0 (31.0-37.0) g/dL RDW Std Deviation 51.9 (28.0-62.0) fl RDW Coeff of Alec 15 (11.0-15.0) % Plt Count 230 (150-400) K/uL MPV 9.60 (7.40-12.00) fL Neut % (Auto) 80.5 H (48.0-80.0) % Lymph % (Auto) 14.3 L (16.0-40.0) % Hardeman % (Auto) 5.1 (0.0-15.0) % Eos % (Auto) 0.0 (0.0-7.0) % Baso % (Auto) 0.1 (0.0-1.5) % Neut # (Auto) 7.2 H (1.4-5.7) K/uL Lymph # (Auto) 1.3 (0.6-2.4) K/uL Hardeman # (Auto) 0.5 (0.0-0.8) K/uL Eos # (Auto) 0.0 (0.0-0.7) K/uL Baso # (Auto) 0.0 (0.0-0.1) K/uL Nucleated RBC % 0.0 /100WBC Nucleated RBCs # 0 K/uL Lactate (0.20-2.00) mmol/L Sodium 139 (136-145) mmol/L Potassium 4.0 (3.5-5.1) mmol/L Chloride 104 (98-107) mmol/L Carbon Dioxide 27.1 (21.0-32.0) mmol/L BUN 13 (7.0-18.0) mg/dL Creatinine 0.8 (0.6-1.0) mg/dL Est Cr Clr Drug Dosing 64.77 mL/min Estimated GFR (MDRD) > 60.0 ml/min Glucose 175 H (74-106) mg/dL POC Glucose 271 H (60-110) mg/dL Calcium 8.1 L (8.5-10.1) mg/dL Total Bilirubin 0.5 (0.2-1.0) mg/dL AST 32 (15-37) IU/L ALT 28 (14-63) IU/L Alkaline Phosphatase 75 (46-116) U/L Total Protein 6.9 (6.4-8.2) g/dL Albumin 2.7 L (3.4-5.0) g/dL Globulin 4.2 H (2.6-4.0) g/dL Albumin/Globulin Ratio 0.6 L (0.9-1.6) Procalcitonin (<0.10) ng/mL Urine Color Urine Appearance Urine pH (5.0-8.0) Ur Specific Hickman (1.001-1.035) Urine Protein (NEGATIVE) mg/dL Urine Glucose (UA) (NEGATIVE) mg/dL Urine Ketones (NEGATIVE) mg/dL Urine Occult Blood (NEGATIVE) Urine Nitrite (NEGATIVE) Urine Bilirubin (NEGATIVE) Urine Urobilinogen (<2.0) EU/dL Ur Leukocyte Esterase (NEGATIVE) Urine RBC (0-2/HPF) Urine WBC (0-5/HPF) Ur Epithelial Cells (NONE-FEW) Urine Bacteria (NEGATIVE) Urine Mucus (NONE-MOD) Urine Yeast SARS-CoV-2 RNA (MARBELLA) (NEGATIVE) 06/12/20 06/12/20 Range/Units 07:50 11:12 WBC (4.0-11.0) K/uL RBC (4.30-5.90) M/uL Hgb (12.0-16.0) g/dL Hct (36.0-46.0) % MCV (80.0-98.0) fL MCH (27.0-32.0) pg MCHC (31.0-37.0) g/dL RDW Std Deviation (28.0-62.0) fl RDW Coeff of Alec (11.0-15.0) % Plt Count (150-400) K/uL MPV (7.40-12.00) fL Neut % (Auto) (48.0-80.0) % Lymph % (Auto) (16.0-40.0) % Hardeman % (Auto) (0.0-15.0) % Eos % (Auto) (0.0-7.0) % Baso % (Auto) (0.0-1.5) % Neut # (Auto) (1.4-5.7) K/uL Lymph # (Auto) (0.6-2.4) K/uL Hardeman # (Auto) (0.0-0.8) K/uL Eos # (Auto) (0.0-0.7) K/uL Baso # (Auto) (0.0-0.1) K/uL Nucleated RBC % /100WBC Nucleated RBCs # K/uL Lactate (0.20-2.00) mmol/L Sodium (136-145) mmol/L Potassium (3.5-5.1) mmol/L Chloride (98-107) mmol/L Carbon Dioxide (21.0-32.0) mmol/L BUN (7.0-18.0) mg/dL Creatinine (0.6-1.0) mg/dL Est Cr Clr Drug Dosing mL/min Estimated GFR (MDRD) ml/min Glucose (74-106) mg/dL POC Glucose 169 H 141 H (60-110) mg/dL Calcium (8.5-10.1) mg/dL Total Bilirubin (0.2-1.0) mg/dL AST (15-37) IU/L ALT (14-63) IU/L Alkaline Phosphatase (46-116) U/L Total Protein (6.4-8.2) g/dL Albumin (3.4-5.0) g/dL Globulin (2.6-4.0) g/dL Albumin/Globulin Ratio (0.9-1.6) Procalcitonin (<0.10) ng/mL Urine Color Urine Appearance Urine pH (5.0-8.0) Ur Specific Hickman (1.001-1.035) Urine Protein (NEGATIVE) mg/dL Urine Glucose (UA) (NEGATIVE) mg/dL Urine Ketones (NEGATIVE) mg/dL Urine Occult Blood (NEGATIVE) Urine Nitrite (NEGATIVE) Urine Bilirubin (NEGATIVE) Urine Urobilinogen (<2.0) EU/dL Ur Leukocyte Esterase (NEGATIVE) Urine RBC (0-2/HPF) Urine WBC (0-5/HPF) Ur Epithelial Cells (NONE-FEW) Urine Bacteria (NEGATIVE) Urine Mucus (NONE-MOD) Urine Yeast SARS-CoV-2 RNA (MARBELLA) (NEGATIVE) Med Orders - Current: Current Medications Acetaminophen (Tylenol) 650 mg PO Q4H PRN PRN Reason: Pain (Mild 1-3)/fever Albuterol/Ipratropium (Duoneb 3.0-0.5 Mg/3 Ml) 3 ml NEB Q4HRRT PRN PRN Reason: Shortness of Breath Albuterol/Ipratropium (Combivent Respimat) 0 gm INH Q4H PRN PRN Reason: Dyspnea Last Admin: 06/12/20 03:59 Dose: 1 puff Documented by: Dexamethasone (Dexamethasone) 6 mg PO DAILY [facility] Last Admin: 06/12/20 09:30 Dose: 6 mg Documented by: Dextrose/Water (Dextrose 50% In Water) 50 ml IVPUSH ONETIME PRN PRN Reason: HYPOGLYCEMIA Last Admin: 06/12/20 06:03 Dose: 50 ml Documented by: Enoxaparin Sodium (Lovenox) 40 mg SUBCUT Q12HR [facility] Last Admin: 06/12/20 09:30 Dose: 40 mg Documented by: Remdesivir 100 mg/ Sodium (Chloride) 100 mls @ 100 mls/hr IV Q24H [facility] Azithromycin 500 mg/ Sodium (Chloride) 250 mls @ 250 mls/hr IV Q24H [facility] Ceftriaxone Sodium/Dextrose 1 (gm/ Premix) 50 mls @ 100 mls/hr IV Q24H [facility] Losartan Potassium (Cozaar) 100 mg PO DAILY [facility] Last Admin: 06/12/20 09:31 Dose: 100 mg Documented by: Pregabalin (Lyrica) 75 mg PO TID [facility] Last Admin: 06/12/20 06:51 Dose: 75 mg Documented by: Sodium Chloride (Saline Flush) 10 ml FLUSH ASDIRECTED PRN PRN Reason: Keep Vein Open Last Admin: 06/11/20 10:46 Dose: 10 ml Documented by: Sodium Chloride (Saline Flush) 2.5 ml FLUSH ASDIRECTED PRN PRN Reason: Keep Vein Open Last Admin: 06/11/20 23:24 Dose: 2.5 ml Documented by: Tramadol HCl (Ultram) 50 mg PO Q6H PRN PRN Reason: Pain Discontinued Medications Azithromycin (Zithromax) 500 mg PO Q24H [facility] Last Admin: 06/11/20 14:54 Dose: 500 mg Documented by: Dexamethasone (Dexamethasone) 6 mg IVPUSH ONETIME ONE Stop: 06/11/20 10:29 Last Admin: 06/11/20 10:45 Dose: 6 mg Documented by: Dextrose/Water (Dextrose 50% In Water) Confirm Administered Dose 50 ml .ROUTE .STK-MED ONE Stop: 06/12/20 06:00 Last Admin: 06/12/20 06:10 Dose: 50 ml Documented by: Azithromycin 500 mg/ Sodium (Chloride) 250 mls @ 250 mls/hr IV ONETIME [facility] Ceftriaxone Sodium/Dextrose 1 (gm/ Premix) 50 mls @ 100 mls/hr IV ONETIME ONE Stop: 06/11/20 14:10 Last Admin: 06/11/20 15:35 Dose: Not Given Documented by: Ceftriaxone Sodium 1 gm/ (Sodium Chloride) 50 mls @ 100 mls/hr IV Q24H [facility] Last Admin: 06/11/20 14:53 Dose: 100 mls/hr Documented by: Remdesivir 200 mg/ Sodium (Chloride) 250 mls @ 250 mls/hr IV ONETIME ONE Stop: 06/11/20 13:45 Last Admin: 06/11/20 18:59 Dose: 250 mls/hr Documented by: Ceftriaxone Sodium/Dextrose (Rocephin In Dextrose,Iso-Osm 1 Gm/50 Ml) Confirm Administered Dose 50 mls @ as directed .ROUTE .STK-MED ONE Stop: 06/11/20 14:06 Last Admin: 06/11/20 14:38 Dose: Not Given Documented by: Insulin Aspart (Novolog) 0 unit SUBCUT TIDAC [facility]; Protocol Last Admin: 06/12/20 08:08 Dose: Not Given Documented by: Iopamidol (Isovue Multipack-370 (76%)) 75 ml IVPUSH ONETIME STA Stop: 06/11/20 13:16 Last Admin: 06/11/20 13:15 Dose: 75 ml Documented by: Potassium Chloride (Klor-Con M20) 40 meq PO ONETIME ONE Stop: 06/11/20 13:47 Last Admin: 06/11/20 14:24 Dose: 40 meq Documented by: - Exam Quality Assessment: Supplemental Oxygen General: Alert, Oriented Neck: Supple Lungs: Decreased Breath Sounds, Rales. No: Clear to Auscultation, Normal Respiratory Effort Cardiovascular: Regular Rate, Regular Rhythm GI/Abdominal Exam: Normal Bowel Sounds, Soft, Non-Tender Sepsis Event Note - Evaluation Sepsis Screening Result: No Definite Risk - Focused Exam Vital Signs: Vital Signs Temp Pulse Resp BP BP BP Pulse Ox 06/12/20 11:00 85 35 H 122/55 L 96 06/12/20 10:00 82 34 H 119/56 L 96 06/12/20 09:35 32 H 94 L 06/12/20 09:31 131/60 06/12/20 09:30 37.2 C 83 34 H 131/60 89 L 06/12/20 07:50 37.6 C 91 33 H 120/57 L 96 06/12/20 06:15 86 35 H 94 L 06/12/20 04:08 36.3 C 81 22 H 113/54 L 92 L 06/12/20 01:06 35.9 C L 74 19 117/59 L 92 L - Problem List & Annotations (1) Hypoxia SNOMED Code(s): 719284045 Code(s): R09.02 - HYPOXEMIA Status: Acute Current Visit: Yes (2) Pneumonia due to COVID-19 virus SNOMED Code(s): 619737851469105199 Code(s): U07.1 - COVID-19; J12.89 - OTHER VIRAL PNEUMONIA Status: Acute Current Visit: Yes - Problem List Review Problem List Initiated/Reviewed/Updated: Yes - My Orders Last 24 Hours: My Active Orders 06/11/20 20:53 Albuterol/Ipratropium [DuoNeb 3.0-0.5 MG/3 ML] 3 ml NEB Q4HRRT PRN 06/11/20 20:54 RT Aerosol Therapy [RC] ASDIRECTED 06/11/20 21:03 RT Post Treatment Assessment [RC] Click to Edit RT Pre-Treatment Assessment [RC] Click to Edit Albuterol/Ipratropium [Combivent Respimat] 0 gm INH Q4H PRN 06/11/20 21:07 Communication Order [RC] ROUTINE 06/12/20 05:49 Dextrose 50% in Water 50 ml IVPUSH ONETIME PRN 06/12/20 05:55 BIPAP [RT BiPAP/CPAP] [RC] ASDIRECTED - Plan Plan:: 64 yo female admitted for COVID pneumonia. Transfer to ICU as patient needing high flow and Bipap for acute hypoxic respiratory failure. COVID: cont BiPAP, requiring increased oxygen, cont dexamethasone, Remdesivir and BID lovenox. cont Rocephin and Azithromycin for possible pneumonia DM: SSI was held was patient was hypoglycemic, will resume sliding scale insulin as appropriate
[2020-06-12] MEDS: REMDESIVIR (EUA) 100 MG in Sodium Chloride 0.9% 100 ML IV SCH (14:53)
[2020-06-12] MEDS: Azithromycin 500 MG in Sodium Chloride 0.9% 250 ML IV SCH (15:15)
[2020-06-12] MEDS: cefTRIAXone 1 GM in Premix Bag 1 BAG IV SCH (15:53)
[2020-06-13] MEDS: Pregabalin 75 MG Cap PO SCH ×2 (05:37→19:16)
[2020-06-13] MEDS: Losartan 50 MG Tab PO SCH (09:28)
[2020-06-13] MEDS: Dexamethasone 4 MG Tab PO SCH (09:36)
[2020-06-13] MEDS: Enoxaparin 40 MG/0.4 ML Syringe SUBCUT SCH ×2 (09:36→20:25)
[2020-06-13] MEDS: Albuterol/Ipratropium 4 GM Inhalation Spray INH PRN (10:18)
[2020-06-13 10:24] LABS: BLOOD UREA NITROGEN,BUN 26 mg/dL (7.0-18.0); CARBON DIOXIDE,CO2 26.8 mmol/L (21.0-32.0); CHLORIDE,CL 106 mmol/L (98-107); GLUCOSE RANDOM 104 mg/dL (74-106); POTASSIUM,K 4.2 mmol/L (3.5-5.1); SODIUM,NA 141 mmol/L (136-145)
[2020-06-13] MEDS ORDERED: LORazepam 2 MG/ML SDV IVPUSH ONE (12:29)
--- NOTE | 2020-06-13 13:04 | PCM.PN ---
- General Info Date of Service: 06/13/20 Admission Dx/Problem (Free Text): Admission Diagnosis/Problem Admission Diagnosis/Problem Pneumonia Subjective Update: unable to be weaned off Bipap, sating 87 on 15 lts high flow, looks comfortable, no acute distress, awake and alert - Review of Systems General: Reports: Weakness, Fatigue, Malaise Pulmonary: Reports: Shortness of Breath, Cough, Sputum Gastrointestinal: Reports: Constipation. Denies: Abdominal Pain, Decreased Appetite, Diarrhea Genitourinary: Denies: Dysuria, Frequency, Burning Musculoskeletal: Denies: Neck Pain, Shoulder Pain, Arm Pain Skin: Denies: Cyanosis, Jaundice, Mottled - Patient Data Vitals - Most Recent: Last Vital Signs Temp 37.1 C 06/13/20 09:00 Pulse 77 06/13/20 09:00 Resp 18 06/13/20 09:00 BP 136/69 06/13/20 09:28 Pulse Ox 89 L 06/13/20 09:00 Weight - Most Recent: 82.917 kg I&O - Last 24 Hours: Intake & Output 06/12/20 06/13/20 06/13/20 22:59 06:59 14:59 Intake Total 1200 650 Output Total 1000 1500 Balance 200 -850 Lab Results Last 24 Hours: Laboratory Results - last 24 hr 06/12/20 06/12/20 06/12/20 Range/Units 15:09 19:05 23:10 WBC (4.0-11.0) K/uL RBC (4.30-5.90) M/uL Hgb (12.0-16.0) g/dL Hct (36.0-46.0) % MCV (80.0-98.0) fL MCH (27.0-32.0) pg MCHC (31.0-37.0) g/dL RDW Std Deviation (28.0-62.0) fl RDW Coeff of Alec (11.0-15.0) % Plt Count (150-400) K/uL MPV (7.40-12.00) fL Neut % (Auto) (48.0-80.0) % Lymph % (Auto) (16.0-40.0) % Wise % (Auto) (0.0-15.0) % Eos % (Auto) (0.0-7.0) % Baso % (Auto) (0.0-1.5) % Neut # (Auto) (1.4-5.7) K/uL Lymph # (Auto) (0.6-2.4) K/uL Wise # (Auto) (0.0-0.8) K/uL Eos # (Auto) (0.0-0.7) K/uL Baso # (Auto) (0.0-0.1) K/uL Nucleated RBC % /100WBC Nucleated RBCs # K/uL ABG pH 7.380 (7.35-7.45) ABG pCO2 40 (35-45) mmHG ABG pO2 65 L (75-100) mmHG ABG HCO3 24 (22-26) mEq/L ABG Total CO2 20.8 ABG Base Excess -1.4 (-2.0-2.0) Sodium (136-145) mmol/L Potassium (3.5-5.1) mmol/L Chloride (98-107) mmol/L Carbon Dioxide (21.0-32.0) mmol/L BUN (7.0-18.0) mg/dL Creatinine (0.6-1.0) mg/dL Est Cr Clr Drug Dosing mL/min Estimated GFR (MDRD) ml/min Glucose (74-106) mg/dL POC Glucose 163 H 138 H (60-110) mg/dL Calcium (8.5-10.1) mg/dL Phosphorus (2.6-4.7) mg/dL Magnesium (1.8-2.4) mg/dL Total Bilirubin (0.2-1.0) mg/dL AST (15-37) IU/L ALT (14-63) IU/L Alkaline Phosphatase (46-116) U/L Total Protein (6.4-8.2) g/dL Albumin (3.4-5.0) g/dL Globulin (2.6-4.0) g/dL Albumin/Globulin Ratio (0.9-1.6) 06/12/20 06/13/20 06/13/20 Range/Units 23:29 03:20 06:33 WBC (4.0-11.0) K/uL RBC (4.30-5.90) M/uL Hgb (12.0-16.0) g/dL Hct (36.0-46.0) % MCV (80.0-98.0) fL MCH (27.0-32.0) pg MCHC (31.0-37.0) g/dL RDW Std Deviation (28.0-62.0) fl RDW Coeff of Alec (11.0-15.0) % Plt Count (150-400) K/uL MPV (7.40-12.00) fL Neut % (Auto) (48.0-80.0) % Lymph % (Auto) (16.0-40.0) % Wise % (Auto) (0.0-15.0) % Eos % (Auto) (0.0-7.0) % Baso % (Auto) (0.0-1.5) % Neut # (Auto) (1.4-5.7) K/uL Lymph # (Auto) (0.6-2.4) K/uL Wise # (Auto) (0.0-0.8) K/uL Eos # (Auto) (0.0-0.7) K/uL Baso # (Auto) (0.0-0.1) K/uL Nucleated RBC % /100WBC Nucleated RBCs # K/uL ABG pH (7.35-7.45) ABG pCO2 (35-45) mmHG ABG pO2 (75-100) mmHG ABG HCO3 (22-26) mEq/L ABG Total CO2 ABG Base Excess (-2.0-2.0) Sodium (136-145) mmol/L Potassium (3.5-5.1) mmol/L Chloride (98-107) mmol/L Carbon Dioxide (21.0-32.0) mmol/L BUN (7.0-18.0) mg/dL Creatinine (0.6-1.0) mg/dL Est Cr Clr Drug Dosing mL/min Estimated GFR (MDRD) ml/min Glucose (74-106) mg/dL POC Glucose 109 84 77 (60-110) mg/dL Calcium (8.5-10.1) mg/dL Phosphorus (2.6-4.7) mg/dL Magnesium (1.8-2.4) mg/dL Total Bilirubin (0.2-1.0) mg/dL AST (15-37) IU/L ALT (14-63) IU/L Alkaline Phosphatase (46-116) U/L Total Protein (6.4-8.2) g/dL Albumin (3.4-5.0) g/dL Globulin (2.6-4.0) g/dL Albumin/Globulin Ratio (0.9-1.6) 06/13/20 06/13/20 06/13/20 Range/Units 09:35 09:35 10:09 WBC 8.39 (4.0-11.0) K/uL RBC 5.09 (4.30-5.90) M/uL Hgb 14.7 (12.0-16.0) g/dL Hct 46.7 H (36.0-46.0) % MCV 91.7 (80.0-98.0) fL MCH 28.9 (27.0-32.0) pg MCHC 31.5 (31.0-37.0) g/dL RDW Std Deviation 51.6 (28.0-62.0) fl RDW Coeff of Alec 15 (11.0-15.0) % Plt Count 265 (150-400) K/uL MPV 9.40 (7.40-12.00) fL Neut % (Auto) 78.7 (48.0-80.0) % Lymph % (Auto) 14.8 L (16.0-40.0) % Wise % (Auto) 6.4 (0.0-15.0) % Eos % (Auto) 0.0 (0.0-7.0) % Baso % (Auto) 0.1 (0.0-1.5) % Neut # (Auto) 6.6 H (1.4-5.7) K/uL Lymph # (Auto) 1.2 (0.6-2.4) K/uL Wise # (Auto) 0.5 (0.0-0.8) K/uL Eos # (Auto) 0.0 (0.0-0.7) K/uL Baso # (Auto) 0.0 (0.0-0.1) K/uL Nucleated RBC % 0.0 /100WBC Nucleated RBCs # 0 K/uL ABG pH (7.35-7.45) ABG pCO2 (35-45) mmHG ABG pO2 (75-100) mmHG ABG HCO3 (22-26) mEq/L ABG Total CO2 ABG Base Excess (-2.0-2.0) Sodium 141 (136-145) mmol/L Potassium 4.2 (3.5-5.1) mmol/L Chloride 106 (98-107) mmol/L Carbon Dioxide 26.8 (21.0-32.0) mmol/L BUN 26 H (7.0-18.0) mg/dL Creatinine 0.7 (0.6-1.0) mg/dL Est Cr Clr Drug Dosing 74.02 mL/min Estimated GFR (MDRD) > 60.0 ml/min Glucose 104 (74-106) mg/dL POC Glucose 93 (60-110) mg/dL Calcium 8.5 (8.5-10.1) mg/dL Phosphorus 3.7 (2.6-4.7) mg/dL Magnesium 2.4 (1.8-2.4) mg/dL Total Bilirubin 0.6 (0.2-1.0) mg/dL AST 39 H (15-37) IU/L ALT 25 (14-63) IU/L Alkaline Phosphatase 73 (46-116) U/L Total Protein 7.0 (6.4-8.2) g/dL Albumin 2.7 L (3.4-5.0) g/dL Globulin 4.3 H (2.6-4.0) g/dL Albumin/Globulin Ratio 0.6 L (0.9-1.6) Jhonathan Results Last 24 Hours: Microbiology 06/11/20 14:25 Aerobic Blood Culture - Preliminary Blood - Venous - Lab Draw NO GROWTH AFTER 1 DAY Anaerobic Blood Culture - Preliminary NO GROWTH AFTER 1 DAY 06/11/20 14:15 Aerobic Blood Culture - Preliminary Blood - Arm, Right NO GROWTH AFTER 1 DAY Anaerobic Blood Culture - Preliminary NO GROWTH AFTER 1 DAY Med Orders - Current: Current Medications Acetaminophen (Tylenol) 650 mg PO Q4H PRN PRN Reason: Pain (Mild 1-3)/fever Albuterol/Ipratropium (Duoneb 3.0-0.5 Mg/3 Ml) 3 ml NEB Q4HRRT PRN PRN Reason: Shortness of Breath Albuterol/Ipratropium (Combivent Respimat) 0 gm INH Q4H PRN PRN Reason: Dyspnea Last Admin: 06/13/20 10:18 Dose: 1 puff Documented by: Dexamethasone (Dexamethasone) 6 mg PO DAILY [facility] Last Admin: 06/13/20 09:36 Dose: 6 mg Documented by: Dextrose/Water (Dextrose 50% In Water) 50 ml IVPUSH ONETIME PRN PRN Reason: HYPOGLYCEMIA Last Admin: 06/12/20 06:03 Dose: 50 ml Documented by: Enoxaparin Sodium (Lovenox) 40 mg SUBCUT Q12HR [facility] Last Admin: 06/13/20 09:36 Dose: 40 mg Documented by: Remdesivir 100 mg/ Sodium (Chloride) 100 mls @ 100 mls/hr IV Q24H [facility] Last Admin: 06/12/20 14:53 Dose: 100 mls/hr Documented by: Azithromycin 500 mg/ Sodium (Chloride) 250 mls @ 250 mls/hr IV Q24H [facility] Last Admin: 06/12/20 15:15 Dose: 250 mls/hr Documented by: Ceftriaxone Sodium/Dextrose 1 (gm/ Premix) 50 mls @ 100 mls/hr IV Q24H [facility] Last Admin: 06/12/20 15:53 Dose: 100 mls/hr Documented by: Losartan Potassium (Cozaar) 100 mg PO DAILY [facility] Last Admin: 06/13/20 09:28 Dose: 100 mg Documented by: Pregabalin (Lyrica) 75 mg PO TID [facility] Last Admin: 06/13/20 05:37 Dose: 75 mg Documented by: Sodium Chloride (Saline Flush) 10 ml FLUSH ASDIRECTED PRN PRN Reason: Keep Vein Open Last Admin: 06/11/20 10:46 Dose: 10 ml Documented by: Sodium Chloride (Saline Flush) 2.5 ml FLUSH ASDIRECTED PRN PRN Reason: Keep Vein Open Last Admin: 06/11/20 23:24 Dose: 2.5 ml Documented by: Tramadol HCl (Ultram) 50 mg PO Q6H PRN PRN Reason: Pain Discontinued Medications Azithromycin (Zithromax) 500 mg PO Q24H [facility] Last Admin: 06/11/20 14:54 Dose: 500 mg Documented by: Dexamethasone (Dexamethasone) 6 mg IVPUSH ONETIME ONE Stop: 06/11/20 10:29 Last Admin: 06/11/20 10:45 Dose: 6 mg Documented by: Dextrose/Water (Dextrose 50% In Water) Confirm Administered Dose 50 ml .ROUTE .STK-MED ONE Stop: 06/12/20 06:00 Last Admin: 06/12/20 06:10 Dose: 50 ml Documented by: Azithromycin 500 mg/ Sodium (Chloride) 250 mls @ 250 mls/hr IV ONETIME YANIQUE Ceftriaxone Sodium/Dextrose 1 (gm/ Premix) 50 mls @ 100 mls/hr IV ONETIME ONE Stop: 06/11/20 14:10 Last Admin: 06/11/20 15:35 Dose: Not Given Documented by: Ceftriaxone Sodium 1 gm/ (Sodium Chloride) 50 mls @ 100 mls/hr IV Q24H [facility] Last Admin: 06/11/20 14:53 Dose: 100 mls/hr Documented by: Remdesivir 200 mg/ Sodium (Chloride) 250 mls @ 250 mls/hr IV ONETIME ONE Stop: 06/11/20 13:45 Last Admin: 06/11/20 18:59 Dose: 250 mls/hr Documented by: Ceftriaxone Sodium/Dextrose (Rocephin In Dextrose,Iso-Osm 1 Gm/50 Ml) Confirm Administered Dose 50 mls @ as directed .ROUTE .STK-MED ONE Stop: 06/11/20 14:06 Last Admin: 06/11/20 14:38 Dose: Not Given Documented by: Insulin Aspart (Novolog) [facility] Protocol Last Admin: 06/12/20 08:08 Dose: Not Given Documented by: Iopamidol (Isovue Multipack-370 (76%)) 75 ml IVPUSH ONETIME STA Stop: 06/11/20 13:16 Last Admin: 06/11/20 13:15 Dose: 75 ml Documented by: Lorazepam (Ativan) 1 mg IVPUSH ONETIME ONE Stop: 06/13/20 12:30 Potassium Chloride (Klor-Con M20) 40 meq PO ONETIME ONE Stop: 06/11/20 13:47 Last Admin: 06/11/20 14:24 Dose: 40 meq Documented by: - Exam Quality Assessment: Supplemental Oxygen (Bipap) General: Alert, Oriented, Mild Distress Neck: Supple Lungs: Decreased Breath Sounds, Crackles Cardiovascular: Regular Rate, Regular Rhythm GI/Abdominal Exam: Normal Bowel Sounds, Soft, Non-Tender Back Exam: Normal Inspection Extremities: Normal Inspection, Normal Range of Motion Sepsis Event Note - Evaluation Sepsis Screening Result: No Definite Risk - Focused Exam Vital Signs: Vital Signs Temp Pulse Resp BP BP Pulse Ox 06/13/20 09:28 136/69 06/13/20 09:00 37.1 C 77 18 136/69 89 L 06/13/20 03:25 36.4 C 81 31 H 129/63 92 L - Problem List & Annotations (1) Hypoxia SNOMED Code(s): 436660852 Code(s): R09.02 - HYPOXEMIA Status: Acute Current Visit: Yes (2) Pneumonia due to COVID-19 virus SNOMED Code(s): 042496353896158232 Code(s): U07.1 - COVID-19; J12.89 - OTHER VIRAL PNEUMONIA Status: Acute Current Visit: Yes - Problem List Review Problem List Initiated/Reviewed/Updated: Yes - My Orders Last 24 Hours: My Active Orders 06/12/20 15:17 Communication Order [RC] ROUTINE 06/13/20 11:16 Chest 1V Frontal [CR] Routine 06/13/20 11:28 Transfer Patient (Change bed) [ADT] Routine - Plan Plan:: 64 yo female admitted for COVID pneumonia. Transfer to ICU as patient needing high flow and Bipap for acute hypoxic respiratory failure. COVID: cont BiPAP, requiring increased oxygen, cont dexamethasone, Remdesivir and BID lovenox. cont Rocephin and Azithromycin for possible pneumonia Repeat CXR DM: SSI was held was patient was hypoglycemic, will resume sliding scale insulin as appropriate
[2020-06-13] MEDS ORDERED: LORazepam 2 MG/ML SDV ONE (13:14)
--- NOTE | 2020-06-13 13:48 | CR ---
INDICATION: Hypoxia, COVID positive TECHNIQUE: Chest 1 view. COMPARISON: Chest radiograph 06/11/2020 FINDINGS/IMPRESSION: Lungs: Low lung volumes. Patchy bilateral airspace opacities, similar to the prior radiograph. No pleural effusion. No pneumothorax. Heart and mediastinum: Within normal limits. Dictated by Mae Colon MD @ Jun 13 2020 1:44PM Signed by Dr. Mae Colon @ Jun 13 2020 1:46PM
--- NOTE | 2020-06-13 14:19 | PN ---
THC Physician - Brief Progress [id number]/03/2020 14:11[facility] [place] [facility] KATIE FLANAGAN, Covid +Date of Service 06/13/2020 14:11HP I/Events of Note eICU Admission [id number] admitted for acute hypoxemic respiratory failure attributed t o COVID. History obtained from review of EMR.PMH: DM, HTNHPI: Patient had been originally admitted on 06/11 for worsening shortness of breath, fever and cough, found to be in acute hypoxemic respiratory failure and COVID positive.Patient had been placed on BPAP for support. Clinical status failed to imp rove, and patient was moved into ICU service for closer monitoring.Camera exam: Laying in bed. Vitals monitor reviewed. eICU Impression and Recommendations:Acute hypoxemic respiratory failure attributed to COVID pneumoniaGiven degree of hypoxemia and need for BPAP, recommend transfer for convalescent p lasma/evaluation by infectious diseaseIsolation precautions per local policyDexamethasone 6mg daily f or 10 days, remdesivirContinue oxygen supplementationAwake proning as toleratedSuggest targeting a ne utral to negative net fluid balance as tolerated hemodynamicallyConsider repeating procalcitonin to a ssist with de-escalation of antibioticsNIPPV is a reasonable approach for respiratory support.Above r ecommendations communicated to excellent bedside physician Dr. Ramos over telephone.DVT and GI prop hylaxis as appropriate.Thank you for allowing us to participate in the care of this patient.The above note transcribed with the assistance of dictation software. Please excuse any errors.Interventions Latesha french-Respiratory failure - evaluation and management
[2020-06-13] MEDS: REMDESIVIR (EUA) 100 MG in Sodium Chloride 0.9% 100 ML IV SCH (14:34)
[2020-06-13] MEDS: Azithromycin 500 MG in Sodium Chloride 0.9% 250 ML IV SCH (14:41)
--- NOTE | 2020-06-13 15:10 | PCM.SN.2 ---
- Free Text/Narrative Note: Tried to call multiple tertiary hospitals for possible transfer as patient has been getting worse in terms of her respiratory status, no beds available at the moment Discussed with EICU, patient would benefit from convalescent plasma. will reach out to blood bank to see if its available, per EICU recommendations if plasma is available in next day or so, we could defer the transfer for now, i agree with this plan. .
[2020-06-13] MEDS: cefTRIAXone 1 GM in Premix Bag 1 BAG IV SCH (15:51)
--- NOTE | 2020-06-13 16:41 | PN ---
THC Physician - Brief Progress [id number]/03/2020 16:39[facility] Malini escobedo, [place] - [facility]IT ([facility]) - KATIE AKBAR Covid +Date of Service 06/13/2020 16:39HP I/Events of Note eICU Update NoteSpoke to Dr. Ramos regarding availability of convalescent plasma. Per report, we are able to get convalescent plasma. I believe it is reasonable to hold off on transfe r at this time and administer convalescent plasma.Interventions Major-Respiratory failure - evaluatio n and management
[2020-06-13] MEDS: Insulin Aspart 100 Units/ML 3 ML Pen SUBCUT SCH (17:07)
[2020-06-14] MEDS: Albuterol/Ipratropium 3.0-0.5 MG/3 ML Neb Soln NEB SCH ×7 (00:05→21:15)
[2020-06-14 06:25] LABS: BLOOD UREA NITROGEN,BUN 26 mg/dL (7.0-18.0); CARBON DIOXIDE,CO2 26.7 mmol/L (21.0-32.0); CHLORIDE,CL 105 mmol/L (98-107); GLUCOSE RANDOM 108 mg/dL (74-106); SODIUM,NA 141 mmol/L (136-145)
[2020-06-14] MEDS: Insulin Aspart 100 Units/ML 3 ML Pen SUBCUT SCH ×5 (07:36→18:08)
[2020-06-14] MEDS: Acetaminophen 325 MG Tab PO PRN ×2 (09:28→16:39)
[2020-06-14] MEDS: Pantoprazole 40 MG in Sodium Chloride 0.9% 10 ML IV SCH (09:28)
[2020-06-14] MEDS: Enoxaparin 40 MG/0.4 ML Syringe SUBCUT SCH ×2 (09:29→21:10)
[2020-06-14] MEDS: Dexamethasone 4 MG Tab PO SCH (09:29)
[2020-06-14] MEDS: Sodium Chloride 0.9% 10 ML Syringe FLUSH PRN (09:30)
[2020-06-14] MEDS: Albuterol/Ipratropium 4 GM Inhalation Spray INH PRN (10:14)
--- NOTE | 2020-06-14 13:23 | PCM.PN ---
- General Info Date of Service: 06/14/20 Admission Dx/Problem (Free Text): Admission Diagnosis/Problem Admission Diagnosis/Problem Pneumonia Subjective Update: awake, feels comfortable, less anxious today. on 65% Fi02, on BIpap, has 2 bowel movements, wants to eat jello - Review of Systems General: Reports: Weakness, Malaise. Denies: Fever, Fatigue Pulmonary: Reports: Shortness of Breath, Cough, Sputum. Denies: Pleuritic Chest Pain Gastrointestinal: Denies: Abdominal Pain, Constipation, Decreased Appetite Genitourinary: Denies: Dysuria, Frequency, Burning, Pain Musculoskeletal: Denies: Neck Pain, Shoulder Pain, Arm Pain, Hand Pain Skin: Denies: Cyanosis, Jaundice - Patient Data Vitals - Most Recent: Last Vital Signs Temp 36.6 C 06/14/20 11:00 Pulse 85 06/14/20 13:00 Resp 27 H 06/14/20 13:00 BP 142/72 H 06/14/20 13:00 Pulse Ox 92 L 06/14/20 13:00 Weight - Most Recent: 83.4 kg I&O - Last 24 Hours: Intake & Output 06/13/20 06/14/20 06/14/20 22:59 06:59 14:59 Intake Total 400 720 Output Total 250 1050 Balance 150 -330 Lab Results Last 24 Hours: Laboratory Results - last 24 hr 06/13/20 06/13/20 06/13/20 Range/Units 14:57 15:46 15:46 WBC (4.0-11.0) K/uL RBC (4.30-5.90) M/uL Hgb (12.0-16.0) g/dL Hct (36.0-46.0) % MCV (80.0-98.0) fL MCH (27.0-32.0) pg MCHC (31.0-37.0) g/dL RDW Std Deviation (28.0-62.0) fl RDW Coeff of Alec (11.0-15.0) % Plt Count (150-400) K/uL MPV (7.40-12.00) fL Neut % (Auto) (48.0-80.0) % Lymph % (Auto) (16.0-40.0) % [place] % (Auto) (0.0-15.0) % Eos % (Auto) (0.0-7.0) % Baso % (Auto) (0.0-1.5) % Neut # (Auto) (1.4-5.7) K/uL Lymph # (Auto) (0.6-2.4) K/uL [place] # (Auto) (0.0-0.8) K/uL Eos # (Auto) (0.0-0.7) K/uL Baso # (Auto) (0.0-0.1) K/uL Nucleated RBC % /100WBC Nucleated RBCs # K/uL INR 2.26 APTT 100.7 H (18.6-31.3) SEC Sodium (136-145) mmol/L Potassium (3.5-5.1) mmol/L Chloride (98-107) mmol/L Carbon Dioxide (21.0-32.0) mmol/L BUN (7.0-18.0) mg/dL Creatinine (0.6-1.0) mg/dL Est Cr Clr Drug Dosing mL/min Estimated GFR (MDRD) ml/min Glucose (74-106) mg/dL POC Glucose 184 H (60-110) mg/dL Calcium (8.5-10.1) mg/dL Phosphorus (2.6-4.7) mg/dL Magnesium (1.8-2.4) mg/dL Total Bilirubin (0.2-1.0) mg/dL AST (15-37) IU/L ALT (14-63) IU/L Alkaline Phosphatase (46-116) U/L Total Protein (6.4-8.2) g/dL Albumin (3.4-5.0) g/dL Globulin (2.6-4.0) g/dL Albumin/Globulin Ratio (0.9-1.6) Blood Type O POSITIVE 06/13/20 06/13/20 06/13/20 Range/Units 16:53 20:13 23:56 WBC (4.0-11.0) K/uL RBC (4.30-5.90) M/uL Hgb (12.0-16.0) g/dL Hct (36.0-46.0) % MCV (80.0-98.0) fL MCH (27.0-32.0) pg MCHC (31.0-37.0) g/dL RDW Std Deviation (28.0-62.0) fl RDW Coeff of Alec (11.0-15.0) % Plt Count (150-400) K/uL MPV (7.40-12.00) fL Neut % (Auto) (48.0-80.0) % Lymph % (Auto) (16.0-40.0) % [place] % (Auto) (0.0-15.0) % Eos % (Auto) (0.0-7.0) % Baso % (Auto) (0.0-1.5) % Neut # (Auto) (1.4-5.7) K/uL Lymph # (Auto) (0.6-2.4) K/uL [place] # (Auto) (0.0-0.8) K/uL Eos # (Auto) (0.0-0.7) K/uL Baso # (Auto) (0.0-0.1) K/uL Nucleated RBC % /100WBC Nucleated RBCs # K/uL INR APTT (18.6-31.3) SEC Sodium (136-145) mmol/L Potassium (3.5-5.1) mmol/L Chloride (98-107) mmol/L Carbon Dioxide (21.0-32.0) mmol/L BUN (7.0-18.0) mg/dL Creatinine (0.6-1.0) mg/dL Est Cr Clr Drug Dosing mL/min Estimated GFR (MDRD) ml/min Glucose (74-106) mg/dL POC Glucose 208 H 146 H 108 (60-110) mg/dL Calcium (8.5-10.1) mg/dL Phosphorus (2.6-4.7) mg/dL Magnesium (1.8-2.4) mg/dL Total Bilirubin (0.2-1.0) mg/dL AST (15-37) IU/L ALT (14-63) IU/L Alkaline Phosphatase (46-116) U/L Total Protein (6.4-8.2) g/dL Albumin (3.4-5.0) g/dL Globulin (2.6-4.0) g/dL Albumin/Globulin Ratio (0.9-1.6) Blood Type 06/14/20 06/14/20 06/14/20 Range/Units 04:16 04:21 04:26 WBC (4.0-11.0) K/uL RBC (4.30-5.90) M/uL Hgb (12.0-16.0) g/dL Hct (36.0-46.0) % MCV (80.0-98.0) fL MCH (27.0-32.0) pg MCHC (31.0-37.0) g/dL RDW Std Deviation (28.0-62.0) fl RDW Coeff of Alec (11.0-15.0) % Plt Count (150-400) K/uL MPV (7.40-12.00) fL Neut % (Auto) (48.0-80.0) % Lymph % (Auto) (16.0-40.0) % [place] % (Auto) (0.0-15.0) % Eos % (Auto) (0.0-7.0) % Baso % (Auto) (0.0-1.5) % Neut # (Auto) (1.4-5.7) K/uL Lymph # (Auto) (0.6-2.4) K/uL [place] # (Auto) (0.0-0.8) K/uL Eos # (Auto) (0.0-0.7) K/uL Baso # (Auto) (0.0-0.1) K/uL Nucleated RBC % /100WBC Nucleated RBCs # K/uL INR APTT (18.6-31.3) SEC Sodium (136-145) mmol/L Potassium (3.5-5.1) mmol/L Chloride (98-107) mmol/L Carbon Dioxide (21.0-32.0) mmol/L BUN (7.0-18.0) mg/dL Creatinine (0.6-1.0) mg/dL Est Cr Clr Drug Dosing mL/min Estimated GFR (MDRD) ml/min Glucose (74-106) mg/dL POC Glucose 68 79 79 (60-110) mg/dL Calcium (8.5-10.1) mg/dL Phosphorus (2.6-4.7) mg/dL Magnesium (1.8-2.4) mg/dL Total Bilirubin (0.2-1.0) mg/dL AST (15-37) IU/L ALT (14-63) IU/L Alkaline Phosphatase (46-116) U/L Total Protein (6.4-8.2) g/dL Albumin (3.4-5.0) g/dL Globulin (2.6-4.0) g/dL Albumin/Globulin Ratio (0.9-1.6) Blood Type 06/14/20 06/14/20 06/14/20 Range/Units 05:55 05:55 06:00 WBC 7.19 (4.0-11.0) K/uL RBC 5.23 (4.30-5.90) M/uL Hgb 15.2 (12.0-16.0) g/dL Hct 47.8 H (36.0-46.0) % MCV 91.4 (80.0-98.0) fL MCH 29.1 (27.0-32.0) pg MCHC 31.8 (31.0-37.0) g/dL RDW Std Deviation 50.9 (28.0-62.0) fl RDW Coeff of Alec 15 (11.0-15.0) % Plt Count 288 (150-400) K/uL MPV 9.30 (7.40-12.00) fL Neut % (Auto) 76.9 (48.0-80.0) % Lymph % (Auto) 16.0 (16.0-40.0) % [place] % (Auto) 6.8 (0.0-15.0) % Eos % (Auto) 0.0 (0.0-7.0) % Baso % (Auto) 0.3 (0.0-1.5) % Neut # (Auto) 5.5 (1.4-5.7) K/uL Lymph # (Auto) 1.2 (0.6-2.4) K/uL [place] # (Auto) 0.5 (0.0-0.8) K/uL Eos # (Auto) 0.0 (0.0-0.7) K/uL Baso # (Auto) 0.0 (0.0-0.1) K/uL Nucleated RBC % 0.0 /100WBC Nucleated RBCs # 0 K/uL INR APTT (18.6-31.3) SEC Sodium 141 (136-145) mmol/L Potassium 4.0 (3.5-5.1) mmol/L Chloride 105 (98-107) mmol/L Carbon Dioxide 26.7 (21.0-32.0) mmol/L BUN 26 H (7.0-18.0) mg/dL Creatinine 0.7 (0.6-1.0) mg/dL Est Cr Clr Drug Dosing 74.02 mL/min Estimated GFR (MDRD) > 60.0 ml/min Glucose 108 H (74-106) mg/dL POC Glucose 97 (60-110) mg/dL Calcium 8.6 (8.5-10.1) mg/dL Phosphorus 4.5 (2.6-4.7) mg/dL Magnesium 2.2 (1.8-2.4) mg/dL Total Bilirubin 0.5 (0.2-1.0) mg/dL AST 32 (15-37) IU/L ALT 24 (14-63) IU/L Alkaline Phosphatase 75 (46-116) U/L Total Protein 6.9 (6.4-8.2) g/dL Albumin 2.7 L (3.4-5.0) g/dL Globulin 4.2 H (2.6-4.0) g/dL Albumin/Globulin Ratio 0.6 L (0.9-1.6) Blood Type 06/14/20 Range/Units 09:38 WBC (4.0-11.0) K/uL RBC (4.30-5.90) M/uL Hgb (12.0-16.0) g/dL Hct (36.0-46.0) % MCV (80.0-98.0) fL MCH (27.0-32.0) pg MCHC (31.0-37.0) g/dL RDW Std Deviation (28.0-62.0) fl RDW Coeff of Alec (11.0-15.0) % Plt Count (150-400) K/uL MPV (7.40-12.00) fL Neut % (Auto) (48.0-80.0) % Lymph % (Auto) (16.0-40.0) % [place] % (Auto) (0.0-15.0) % Eos % (Auto) (0.0-7.0) % Baso % (Auto) (0.0-1.5) % Neut # (Auto) (1.4-5.7) K/uL Lymph # (Auto) (0.6-2.4) K/uL [place] # (Auto) (0.0-0.8) K/uL Eos # (Auto) (0.0-0.7) K/uL Baso # (Auto) (0.0-0.1) K/uL Nucleated RBC % /100WBC Nucleated RBCs # K/uL INR APTT (18.6-31.3) SEC Sodium (136-145) mmol/L Potassium (3.5-5.1) mmol/L Chloride (98-107) mmol/L Carbon Dioxide (21.0-32.0) mmol/L BUN (7.0-18.0) mg/dL Creatinine (0.6-1.0) mg/dL Est Cr Clr Drug Dosing mL/min Estimated GFR (MDRD) ml/min Glucose (74-106) mg/dL POC Glucose 85 (60-110) mg/dL Calcium (8.5-10.1) mg/dL Phosphorus (2.6-4.7) mg/dL Magnesium (1.8-2.4) mg/dL Total Bilirubin (0.2-1.0) mg/dL AST (15-37) IU/L ALT (14-63) IU/L Alkaline Phosphatase (46-116) U/L Total Protein (6.4-8.2) g/dL Albumin (3.4-5.0) g/dL Globulin (2.6-4.0) g/dL Albumin/Globulin Ratio (0.9-1.6) Blood Type Jhonathan Results Last 24 Hours: Microbiology 06/11/20 14:25 Aerobic Blood Culture - Preliminary Blood - Venous - Lab Draw NO GROWTH AFTER 2 DAYS Anaerobic Blood Culture - Preliminary NO GROWTH AFTER 2 DAYS 06/11/20 14:15 Aerobic Blood Culture - Preliminary Blood - Arm, Right NO GROWTH AFTER 2 DAYS Anaerobic Blood Culture - Preliminary NO GROWTH AFTER 2 DAYS Med Orders - Current: Current Medications Acetaminophen (Tylenol) 650 mg PO Q4H PRN PRN Reason: Pain (Mild 1-3)/fever Last Admin: 06/14/20 09:28 Dose: 650 mg Documented by: Albuterol/Ipratropium (Combivent Respimat) 0 gm INH Q4H PRN PRN Reason: Dyspnea Last Admin: 06/14/20 10:14 Dose: 1 puff Documented by: Albuterol/Ipratropium (Duoneb 3.0-0.5 Mg/3 Ml) 3 ml NEB Q4HRRT [facility] Last Admin: 06/14/20 10:14 Dose: Not Given Documented by: Dexamethasone (Dexamethasone) 6 mg PO DAILY [facility] Last Admin: 06/14/20 09:29 Dose: 6 mg Documented by: Dextrose/Water (Dextrose 50% In Water) 50 ml IVPUSH ONETIME PRN PRN Reason: HYPOGLYCEMIA Last Admin: 06/12/20 06:03 Dose: 50 ml Documented by: Enoxaparin Sodium (Lovenox) 40 mg SUBCUT Q12HR [facility] Last Admin: 06/14/20 09:29 Dose: 40 mg Documented by: Remdesivir 100 mg/ Sodium (Chloride) 100 mls @ 100 mls/hr IV Q24H [facility] Last Admin: 06/13/20 14:34 Dose: 100 mls/hr Documented by: Azithromycin 500 mg/ Sodium (Chloride) 250 mls @ 250 mls/hr IV Q24H [facility] Last Admin: 06/13/20 14:41 Dose: 250 mls/hr Documented by: Ceftriaxone Sodium/Dextrose 1 (gm/ Premix) 50 mls @ 100 mls/hr IV Q24H [facility] Last Admin: 06/13/20 15:51 Dose: 100 mls/hr Documented by: Pantoprazole Sodium 40 mg/ (Sodium Chloride) 10 mls @ 300 mls/hr IV DAILY [facility] Last Admin: 06/14/20 09:28 Dose: 300 mls/hr Documented by: Insulin Aspart (Novolog) 0 unit SUBCUT TIDAC [facility]; Protocol Last Admin: 06/14/20 11:32 Dose: Not Given Documented by: Sodium Chloride (Saline Flush) 10 ml FLUSH ASDIRECTED PRN PRN Reason: Keep Vein Open Last Admin: 06/14/20 09:30 Dose: 10 ml Documented by: Sodium Chloride (Saline Flush) 2.5 ml FLUSH ASDIRECTED PRN PRN Reason: Keep Vein Open Last Admin: 06/11/20 23:24 Dose: 2.5 ml Documented by: Discontinued Medications Albuterol/Ipratropium (Duoneb 3.0-0.5 Mg/3 Ml) 3 ml NEB Q4HRRT PRN PRN Reason: Shortness of Breath Last Admin: 06/13/20 20:24 Dose: 3 ml Documented by: Azithromycin (Zithromax) 500 mg PO Q24H [facility] Last Admin: 06/11/20 14:54 Dose: 500 mg Documented by: Dexamethasone (Dexamethasone) 6 mg IVPUSH ONETIME ONE Stop: 06/11/20 10:29 Last Admin: 06/11/20 10:45 Dose: 6 mg Documented by: Dextrose/Water (Dextrose 50% In Water) Confirm Administered Dose 50 ml .ROUTE .STK-MED ONE Stop: 06/12/20 06:00 Last Admin: 06/12/20 06:10 Dose: 50 ml Documented by: Azithromycin 500 mg/ Sodium (Chloride) 250 mls @ 250 mls/hr IV ONETIME [facility] Ceftriaxone Sodium/Dextrose 1 (gm/ Premix) 50 mls @ 100 mls/hr IV ONETIME ONE Stop: 06/11/20 14:10 Last Admin: 06/11/20 15:35 Dose: Not Given Documented by: Ceftriaxone Sodium 1 gm/ (Sodium Chloride) 50 mls @ 100 mls/hr IV Q24H [facility] Last Admin: 06/11/20 14:53 Dose: 100 mls/hr Documented by: Remdesivir 200 mg/ Sodium (Chloride) 250 mls @ 250 mls/hr IV ONETIME ONE Stop: 06/11/20 13:45 Last Admin: 06/11/20 18:59 Dose: 250 mls/hr Documented by: Ceftriaxone Sodium/Dextrose (Rocephin In Dextrose,Iso-Osm 1 Gm/50 Ml) Confirm Administered Dose 50 mls @ as directed .ROUTE .STK-MED ONE Stop: 06/11/20 14:06 Last Admin: 06/11/20 14:38 Dose: Not Given Documented by: Insulin Aspart (Novolog) 0 unit SUBCUT TIDAC [facility]; Protocol Last Admin: 06/12/20 08:08 Dose: Not Given Documented by: Iopamidol (Isovue Multipack-370 (76%)) 75 ml IVPUSH ONETIME STA Stop: 06/11/20 13:16 Last Admin: 06/11/20 13:15 Dose: 75 ml Documented by: Lorazepam (Ativan) 1 mg IVPUSH ONETIME ONE Stop: 06/13/20 12:30 Last Admin: 06/13/20 13:18 Dose: 1 mg Documented by: Lorazepam (Ativan) Confirm Administered Dose 2 mg .ROUTE .STK-MED ONE Stop: 06/13/20 13:15 Last Admin: 06/13/20 19:15 Dose: Not Given Documented by: Losartan Potassium (Cozaar) 100 mg PO DAILY [facility] Last Admin: 06/13/20 09:28 Dose: 100 mg Documented by: Potassium Chloride (Klor-Con M20) 40 meq PO ONETIME ONE Stop: 06/11/20 13:47 Last Admin: 06/11/20 14:24 Dose: 40 meq Documented by: Pregabalin (Lyrica) 75 mg PO TID [facility] Last Admin: 06/13/20 19:16 Dose: Not Given Documented by: Tramadol HCl (Ultram) 50 mg PO Q6H PRN PRN Reason: Pain - Exam Quality Assessment: Supplemental Oxygen Neck: Supple, Trachea Midline Lungs: Decreased Breath Sounds, Rales, Rhonchi. No: Normal Respiratory Effort Cardiovascular: Regular Rate GI/Abdominal Exam: Normal Bowel Sounds, Soft, Non-Tender Sepsis Event Note - Evaluation Sepsis Screening Result: No Definite Risk - Focused Exam Vital Signs: Vital Signs Temp Pulse Resp BP Pulse Ox 06/14/20 13:00 85 27 H 142/72 H 92 L 06/14/20 12:21 26 H 96 06/14/20 12:00 21 H 150/80 H 96 06/14/20 11:00 36.6 C 93 20 129/71 93 L 06/14/20 10:00 71 26 H 137/61 94 L 06/14/20 09:00 72 30 H 136/61 91 L 06/14/20 07:57 94 22 H 131/56 L 94 L 06/14/20 07:00 37.1 C 73 20 125/54 L 94 L 06/14/20 06:00 30 H 129/57 L 92 L 06/14/20 05:00 30 H 128/58 L 94 L 06/14/20 04:00 36.8 C 27 H 134/57 L 92 L 06/14/20 03:00 30 H 125/60 93 L 06/14/20 02:00 25 H 122/54 L 93 L - Problem List & Annotations (1) Hypoxia SNOMED Code(s): 163370390 Code(s): R09.02 - HYPOXEMIA Status: Acute Current Visit: Yes (2) Pneumonia due to COVID-19 virus SNOMED Code(s): 807328729211725766 Code(s): U07.1 - COVID-19; J12.89 - OTHER VIRAL PNEUMONIA Status: Acute Current Visit: Yes - Problem List Review Problem List Initiated/Reviewed/Updated: Yes - My Orders Last 24 Hours: My Active Orders 06/13/20 15:46 ABO/RH TYPE [BBK] Routine FRESH FROZEN PLASMA [BBK] Routine 06/13/20 17:00 Insulin Aspart [NovoLOG] See Protocol SUBCUT TIDAC 06/14/20 00:00 Albuterol/Ipratropium [DuoNeb 3.0-0.5 MG/3 ML] 3 ml NEB Q4HRRT 06/14/20 09:00 Pantoprazole [ProTONIX IV] 40 mg Sodium Chloride 0.9% [Normal Saline] 10 ml IV DAILY 06/14/20 10:15 PROCALCITONIN [REF] Routine - Plan Plan:: 64 yo female admitted for COVID pneumonia. cont on Bipap for acute hypoxic respiratory failure, Fio2 requirement is improving. cont dexamethasone, Remdesivir and BID lovenox. cont Rocephin and Azithromycin for possible pneumonia Awaiting convalescent plasma DM: SSI
[2020-06-14] MEDS: REMDESIVIR (EUA) 100 MG in Sodium Chloride 0.9% 100 ML IV SCH (13:34)
[2020-06-14] MEDS: Azithromycin 500 MG in Sodium Chloride 0.9% 250 ML IV SCH (14:57)
--- NOTE | 2020-06-14 17:26 | PN ---
THC Physician - Brief Progress [id number]/04/2020 15:42[facility] Malini Gomez, [place] [facility] MW[facility] KATIE FLANAGAN, Covid +Date of Service 06/14/2020 15:42HP I/Events of Note eICU Progress NotePt is a 64 yo F admitted on 06/11, then transferred to the ICU yest erd for worsening O2 saturations and placed on BIPAP. She is COVID positive and has now received Co nvalescent Plasma. She additionally continues on Dexamethasone and Remdesivir. Her sats today are 93% on O2 via Salter at 15 L. She has tolerated being off BIPAP since 11 am, but will be going back on s hortly. Her anxiety is improved today, which has also helped her respiratory status. She is sitting u p in bed in NAD with stable VS. Case was discussed with her nurse Danii. eICU Recommendations:1) Con tinue weaning BIPAP as tolerated2) Complete courses of Remdesivir and Dexamethasone, empiric antibiot ics3) Wean O2 via NC to maintain SpO2 > 94%4) Self proning as tolerated5) GI/DVT prophylaxisThank you for allowing us to participate in the care of your patient.Interventions Major-Hypoxemia - evaluatio n and management, Infection - evaluation and [id number]-Qhle-djdfyndf therapies (e.g. VTE , beta yady, etc.), Communication with other healthcare providers and/or familyElectronically Sign ed by: BREE CALDERON) on 06/14/2020 16:04
[2020-06-14] MEDS ORDERED: Morphine 2 MG/ML SYRINGE IVPUSH PRN (17:45)
[2020-06-14] MEDS: cefTRIAXone 1 GM in Premix Bag 1 BAG IV SCH (18:28)
[2020-06-15] MEDS: Albuterol/Ipratropium 3.0-0.5 MG/3 ML Neb Soln NEB SCH ×6 (01:04→21:21)
[2020-06-15 06:28] LABS: BLOOD UREA NITROGEN,BUN 21 mg/dL (7.0-18.0); CARBON DIOXIDE,CO2 26.4 mmol/L (21.0-32.0); CHLORIDE,CL 105 mmol/L (98-107); GLUCOSE RANDOM 142 mg/dL (74-106); SODIUM,NA 143 mmol/L (136-145)
[2020-06-15] MEDS: Insulin Aspart 100 Units/ML 3 ML Pen SUBCUT SCH ×3 (08:08→16:44)
[2020-06-15] MEDS: Dexamethasone 4 MG Tab PO SCH (08:09)
[2020-06-15] MEDS: Pantoprazole 40 MG in Sodium Chloride 0.9% 10 ML IV SCH (08:09)
[2020-06-15] MEDS: Enoxaparin 40 MG/0.4 ML Syringe SUBCUT SCH ×2 (08:10→21:13)
--- NOTE | 2020-06-15 08:42 | PN ---
THC Physician - Brief Progress [id number]/05/2020 08:38[facility] Malini Gomez, [place] [facility] MW[facility] KATIE FLANAGAN, Covid +Date of Service 06/15/2020 08:38HP I/Events of Note eICU Progress NoteAcute hypoxemic respiratory failure secondary to COVID-19. Has re ceived convalescent plasma. Currently completing course of steroids and remdesivir in addition to CA P coverage. Patient with continued improvement. This morning appears well and in seated in the bruce r and eating breakfast. She is on salter nasal cannula saturating 90%. Vitals reviewedReviewedEMR n otesLabsImagingAvailable microeICU impressionsAcute hypoxemic respiratory failureCOVID-19QI measurese ICU Recommendations:Complete course of Decadron and remdesivirEmpiric course of CAP coverage being co mpletedMaintain salter nasal cannula and titrate to target saturation greater than 90%, wean astolera tedWith refractory hypoxia can transition to high flow nasal cannula versus add support as needed wit h noninvasive ventilationSelf proning as tolerated and neededVTE prophylaxis with LovenoxGI prophylax is with PPIGlycemic control per protocol, blood sugar target between 140-180Thank you for allowing us to participate in the care of your patient.Interventions Major-Hypoxemia - evaluation and management , Infection - evaluation and management, Respiratory failure - evaluation and managementElectronicall y Signed by: BAY NORWOOD) on 06/15/2020 08:42
--- NOTE | 2020-06-15 11:56 | PCM.PN ---
- General Info Date of Service: 06/15/20 Admission Dx/Problem (Free Text): Admission Diagnosis/Problem Admission Diagnosis/Problem Pneumonia Subjective Update: awake, feels comfortable, on high flow 15 lts, tolerating it well Functional Status: Reports: Tolerating Diet, Urinating - Review of Systems General: Reports: Weakness, Fatigue. Denies: Malaise, Chills Pulmonary: Reports: Shortness of Breath, Cough. Denies: Pleuritic Chest Pain, Sputum Gastrointestinal: Denies: Abdominal Pain, Constipation, Decreased Appetite Genitourinary: Denies: Dysuria, Frequency, Burning Musculoskeletal: Denies: Neck Pain, Shoulder Pain, Arm Pain Skin: Denies: Cyanosis, Jaundice, Mottled Neurological: Denies: Confusion, Dizziness, Headache - Patient Data Vitals - Most Recent: Last Vital Signs Temp 36 C L 06/15/20 08:00 Pulse 83 06/14/20 19:00 Resp 16 06/15/20 10:00 BP 146/59 H 06/15/20 10:00 Pulse Ox 94 L 06/15/20 10:00 Weight - Most Recent: 82.3 kg I&O - Last 24 Hours: Intake & Output 06/14/20 06/15/20 06/15/20 22:59 06:59 14:59 Intake Total 960 580 Output Total 1100 1230 Balance -140 -650 Lab Results Last 24 Hours: Laboratory Results - last 24 hr 06/13/20 06/14/20 06/14/20 Range/Units 15:46 13:53 18:05 WBC (4.0-11.0) K/uL RBC (4.30-5.90) M/uL Hgb (12.0-16.0) g/dL Hct (36.0-46.0) % MCV (80.0-98.0) fL MCH (27.0-32.0) pg MCHC (31.0-37.0) g/dL RDW Std Deviation (28.0-62.0) fl RDW Coeff of Alec (11.0-15.0) % Plt Count (150-400) K/uL MPV (7.40-12.00) fL Neut % (Auto) (48.0-80.0) % Lymph % (Auto) (16.0-40.0) % Nance % (Auto) (0.0-15.0) % Eos % (Auto) (0.0-7.0) % Baso % (Auto) (0.0-1.5) % Neut # (Auto) (1.4-5.7) K/uL Lymph # (Auto) (0.6-2.4) K/uL Nance # (Auto) (0.0-0.8) K/uL Eos # (Auto) (0.0-0.7) K/uL Baso # (Auto) (0.0-0.1) K/uL Nucleated RBC % /100WBC Nucleated RBCs # K/uL Sodium (136-145) mmol/L Potassium (3.5-5.1) mmol/L Chloride (98-107) mmol/L Carbon Dioxide (21.0-32.0) mmol/L BUN (7.0-18.0) mg/dL Creatinine (0.6-1.0) mg/dL Est Cr Clr Drug Dosing mL/min Estimated GFR (MDRD) ml/min Glucose (74-106) mg/dL POC Glucose 234 H 222 H (60-110) mg/dL Calcium (8.5-10.1) mg/dL Phosphorus (2.6-4.7) mg/dL Magnesium (1.8-2.4) mg/dL Blood Type O POSITIVE 06/14/20 06/15/20 06/15/20 Range/Units 21:17 01:03 05:30 WBC 10.49 (4.0-11.0) K/uL RBC 5.39 (4.30-5.90) M/uL Hgb 15.8 (12.0-16.0) g/dL Hct 49.3 H (36.0-46.0) % MCV 91.5 (80.0-98.0) fL MCH 29.3 (27.0-32.0) pg MCHC 32.0 (31.0-37.0) g/dL RDW Std Deviation 50.0 (28.0-62.0) fl RDW Coeff of Alec 15 (11.0-15.0) % Plt Count 310 (150-400) K/uL MPV 9.60 (7.40-12.00) fL Neut % (Auto) 82.1 H (48.0-80.0) % Lymph % (Auto) 10.8 L (16.0-40.0) % Nance % (Auto) 6.9 (0.0-15.0) % Eos % (Auto) 0.0 (0.0-7.0) % Baso % (Auto) 0.2 (0.0-1.5) % Neut # (Auto) 8.6 H (1.4-5.7) K/uL Lymph # (Auto) 1.1 (0.6-2.4) K/uL Nance # (Auto) 0.7 (0.0-0.8) K/uL Eos # (Auto) 0.0 (0.0-0.7) K/uL Baso # (Auto) 0.0 (0.0-0.1) K/uL Nucleated RBC % 0.0 /100WBC Nucleated RBCs # 0 K/uL Sodium (136-145) mmol/L Potassium (3.5-5.1) mmol/L Chloride (98-107) mmol/L Carbon Dioxide (21.0-32.0) mmol/L BUN (7.0-18.0) mg/dL Creatinine (0.6-1.0) mg/dL Est Cr Clr Drug Dosing mL/min Estimated GFR (MDRD) ml/min Glucose (74-106) mg/dL POC Glucose 170 H 159 H (60-110) mg/dL Calcium (8.5-10.1) mg/dL Phosphorus (2.6-4.7) mg/dL Magnesium (1.8-2.4) mg/dL Blood Type 06/15/20 06/15/20 06/15/20 Range/Units 05:30 05:38 08:06 WBC (4.0-11.0) K/uL RBC (4.30-5.90) M/uL Hgb (12.0-16.0) g/dL Hct (36.0-46.0) % MCV (80.0-98.0) fL MCH (27.0-32.0) pg MCHC (31.0-37.0) g/dL RDW Std Deviation (28.0-62.0) fl RDW Coeff of Alec (11.0-15.0) % Plt Count (150-400) K/uL MPV (7.40-12.00) fL Neut % (Auto) (48.0-80.0) % Lymph % (Auto) (16.0-40.0) % Nance % (Auto) (0.0-15.0) % Eos % (Auto) (0.0-7.0) % Baso % (Auto) (0.0-1.5) % Neut # (Auto) (1.4-5.7) K/uL Lymph # (Auto) (0.6-2.4) K/uL Nance # (Auto) (0.0-0.8) K/uL Eos # (Auto) (0.0-0.7) K/uL Baso # (Auto) (0.0-0.1) K/uL Nucleated RBC % /100WBC Nucleated RBCs # K/uL Sodium 143 (136-145) mmol/L Potassium 4.0 (3.5-5.1) mmol/L Chloride 105 (98-107) mmol/L Carbon Dioxide 26.4 (21.0-32.0) mmol/L BUN 21 H (7.0-18.0) mg/dL Creatinine 0.7 (0.6-1.0) mg/dL Est Cr Clr Drug Dosing 74.02 mL/min Estimated GFR (MDRD) > 60.0 ml/min Glucose 142 H (74-106) mg/dL POC Glucose 142 H 163 H (60-110) mg/dL Calcium 8.7 (8.5-10.1) mg/dL Phosphorus 4.3 (2.6-4.7) mg/dL Magnesium 2.1 (1.8-2.4) mg/dL Blood Type Jhonathan Results Last 24 Hours: Microbiology 06/11/20 14:25 Aerobic Blood Culture - Preliminary Blood - Venous - Lab Draw NO GROWTH AFTER 3 DAYS Anaerobic Blood Culture - Preliminary NO GROWTH AFTER 3 DAYS 06/11/20 14:15 Aerobic Blood Culture - Preliminary Blood - Arm, Right NO GROWTH AFTER 3 DAYS Anaerobic Blood Culture - Preliminary NO GROWTH AFTER 3 DAYS Med Orders - Current: Current Medications Acetaminophen (Tylenol) 650 mg PO Q4H PRN PRN Reason: Pain (Mild 1-3)/fever Last Admin: 06/14/20 16:39 Dose: 650 mg Documented by: Albuterol/Ipratropium (Combivent Respimat) 0 gm INH Q4H PRN PRN Reason: Dyspnea Last Admin: 06/14/20 10:14 Dose: 1 puff Documented by: Albuterol/Ipratropium (Duoneb 3.0-0.5 Mg/3 Ml) 3 ml NEB Q4HRRT [facility] Last Admin: 06/15/20 09:33 Dose: 3 ml Documented by: Dexamethasone (Dexamethasone) 6 mg PO DAILY [facility] Last Admin: 06/15/20 08:09 Dose: 6 mg Documented by: Dextrose/Water (Dextrose 50% In Water) 50 ml IVPUSH ONETIME PRN PRN Reason: HYPOGLYCEMIA Last Admin: 06/12/20 06:03 Dose: 50 ml Documented by: Enoxaparin Sodium (Lovenox) 40 mg SUBCUT Q12HR [facility] Last Admin: 06/15/20 08:10 Dose: 40 mg Documented by: Remdesivir 100 mg/ Sodium (Chloride) 100 mls @ 100 mls/hr IV Q24H [facility] Last Admin: 06/14/20 13:34 Dose: 100 mls/hr Documented by: Azithromycin 500 mg/ Sodium (Chloride) 250 mls @ 250 mls/hr IV Q24H [facility] Last Admin: 06/14/20 14:57 Dose: 250 mls/hr Documented by: Ceftriaxone Sodium/Dextrose 1 (gm/ Premix) 50 mls @ 100 mls/hr IV Q24H [facility] Last Admin: 06/14/20 18:28 Dose: 100 mls/hr Documented by: Pantoprazole Sodium 40 mg/ (Sodium Chloride) 10 mls @ 300 mls/hr IV DAILY [facility] Last Admin: 06/15/20 08:09 Dose: 300 mls/hr Documented by: Insulin Aspart (Novolog) 0 unit SUBCUT TIDAC [facility]; Protocol Last Admin: 06/15/20 08:08 Dose: Not Given Documented by: Morphine Sulfate (Morphine) 1 mg IVPUSH Q1H PRN PRN Reason: Pain Last Admin: 06/14/20 18:23 Dose: 1 mg Documented by: Sodium Chloride (Saline Flush) 10 ml FLUSH ASDIRECTED PRN PRN Reason: Keep Vein Open Last Admin: 06/14/20 09:30 Dose: 10 ml Documented by: Sodium Chloride (Saline Flush) 2.5 ml FLUSH ASDIRECTED PRN PRN Reason: Keep Vein Open Last Admin: 06/11/20 23:24 Dose: 2.5 ml Documented by: Discontinued Medications Albuterol/Ipratropium (Duoneb 3.0-0.5 Mg/3 Ml) 3 ml NEB Q4HRRT PRN PRN Reason: Shortness of Breath Last Admin: 06/13/20 20:24 Dose: 3 ml Documented by: Azithromycin (Zithromax) 500 mg PO Q24H [facility] Last Admin: 06/11/20 14:54 Dose: 500 mg Documented by: Dexamethasone (Dexamethasone) 6 mg IVPUSH ONETIME ONE Stop: 06/11/20 10:29 Last Admin: 06/11/20 10:45 Dose: 6 mg Documented by: Dextrose/Water (Dextrose 50% In Water) Confirm Administered Dose 50 ml .ROUTE .STK-MED ONE Stop: 06/12/20 06:00 Last Admin: 06/12/20 06:10 Dose: 50 ml Documented by: Azithromycin 500 mg/ Sodium (Chloride) 250 mls @ 250 mls/hr IV ONETIME [facility] Ceftriaxone Sodium/Dextrose 1 (gm/ Premix) 50 mls @ 100 mls/hr IV ONETIME ONE Stop: 06/11/20 14:10 Last Admin: 06/11/20 15:35 Dose: Not Given Documented by: Ceftriaxone Sodium 1 gm/ (Sodium Chloride) 50 mls @ 100 mls/hr IV Q24H [facility] Last Admin: 06/11/20 14:53 Dose: 100 mls/hr Documented by: Remdesivir 200 mg/ Sodium (Chloride) 250 mls @ 250 mls/hr IV ONETIME ONE Stop: 06/11/20 13:45 Last Admin: 06/11/20 18:59 Dose: 250 mls/hr Documented by: Ceftriaxone Sodium/Dextrose (Rocephin In Dextrose,Iso-Osm 1 Gm/50 Ml) Confirm Administered Dose 50 mls @ as directed .ROUTE .STK-MED ONE Stop: 06/11/20 14:06 Last Admin: 06/11/20 14:38 Dose: Not Given Documented by: Insulin Aspart (Novolog) 0 unit SUBCUT TIDAC [facility]; Protocol Last Admin: 06/12/20 08:08 Dose: Not Given Documented by: Iopamidol (Isovue Multipack-370 (76%)) 75 ml IVPUSH ONETIME STA Stop: 06/11/20 13:16 Last Admin: 06/11/20 13:15 Dose: 75 ml Documented by: Lorazepam (Ativan) 1 mg IVPUSH ONETIME ONE Stop: 06/13/20 12:30 Last Admin: 06/13/20 13:18 Dose: 1 mg Documented by: Lorazepam (Ativan) Confirm Administered Dose 2 mg .ROUTE .STK-MED ONE Stop: 06/13/20 13:15 Last Admin: 06/13/20 19:15 Dose: Not Given Documented by: Losartan Potassium (Cozaar) 100 mg PO DAILY [facility] Last Admin: 06/13/20 09:28 Dose: 100 mg Documented by: Potassium Chloride (Klor-Con M20) 40 meq PO ONETIME ONE Stop: 06/11/20 13:47 Last Admin: 06/11/20 14:24 Dose: 40 meq Documented by: Pregabalin (Lyrica) 75 mg PO TID [facility] Last Admin: 06/13/20 19:16 Dose: Not Given Documented by: Tramadol HCl (Ultram) 50 mg PO Q6H PRN PRN Reason: Pain - Exam Quality Assessment: Supplemental Oxygen General: Alert, Oriented, Cooperative, No Acute Distress Neck: Supple, Trachea Midline Lungs: Decreased Breath Sounds, Crackles (right lower base) Cardiovascular: Regular Rate, Regular Rhythm. No: Bradycardia, Tachycardia GI/Abdominal Exam: Soft, Non-Tender, No Organomegaly, No Distention Extremities: Normal Inspection, Normal Range of Motion, Non-Tender, No Pedal Edema Sepsis Event Note - Evaluation Sepsis Screening Result: No Definite Risk - Focused Exam Vital Signs: Vital Signs Temp Resp BP Pulse Ox Pulse Ox 06/15/20 10:00 16 146/59 H 94 L 06/15/20 09:00 18 146/58 H 96 06/15/20 08:00 36 C L 27 H 155/75 H 92 L 06/15/20 07:00 27 H 130/57 L 93 L 06/15/20 06:00 36.5 C 26 H 132/55 L 94 L 94 L 06/15/20 05:00 28 H 138/60 94 L 06/15/20 04:00 28 H 120/61 93 L 06/15/20 03:00 29 H 136/63 94 L 06/15/20 02:00 36.8 C 30 H 116/58 L 96 06/15/20 01:00 28 H 114/59 L 97 06/15/20 00:00 31 H 120/59 L 93 L - Problem List & Annotations (1) Hypoxia SNOMED Code(s): 241489770 Code(s): R09.02 - HYPOXEMIA Status: Acute Current Visit: Yes (2) Pneumonia due to COVID-19 virus SNOMED Code(s): 343927409300100224 Code(s): U07.1 - COVID-19; J12.89 - OTHER VIRAL PNEUMONIA Status: Acute Current Visit: Yes - Problem List Review Problem List Initiated/Reviewed/Updated: Yes - My Orders Last 24 Hours: My Active Orders 06/14/20 17:45 Morphine 1 mg IVPUSH Q1H PRN - Plan Plan:: 64 yo female admitted for COVID pneumonia. cont on Hiflow for acute hypoxic respiratory failure, cont intermediate BiPAP, Fio2 requirement is improving. cont dexamethasone, Remdesivir and BID lovenox. cont Rocephin and Azithromycin for possible pneumonia, awaiting Procalcitonin Will administer 1 time lasix cont scheduled DuoNebs Obtained consent for convalescent plasma, will transfuse today DM: SSI
[2020-06-15] MEDS ORDERED: Furosemide 20 MG/2 ML VIAL IVPUSH ONE (11:57)
[2020-06-15] MEDS: REMDESIVIR (EUA) 100 MG in Sodium Chloride 0.9% 100 ML IV SCH (14:11)
[2020-06-15] MEDS: Azithromycin 500 MG in Sodium Chloride 0.9% 250 ML IV SCH (14:39)
[2020-06-15] MEDS: cefTRIAXone 1 GM in Premix Bag 1 BAG IV SCH (15:21)
[2020-06-16] MEDS: Acetaminophen 325 MG Tab PO PRN ×2 (00:15→22:23)
[2020-06-16] MEDS: Albuterol/Ipratropium 3.0-0.5 MG/3 ML Neb Soln NEB SCH ×6 (02:18→21:27)
[2020-06-16] MEDS: Insulin Aspart 100 Units/ML 3 ML Pen SUBCUT SCH ×3 (07:52→17:47)
[2020-06-16] MEDS: Dexamethasone 4 MG Tab PO SCH (08:01)
[2020-06-16] MEDS: Pantoprazole 40 MG in Sodium Chloride 0.9% 10 ML IV SCH (08:02)
[2020-06-16] MEDS: Enoxaparin 40 MG/0.4 ML Syringe SUBCUT SCH ×2 (08:53→20:30)
--- NOTE | 2020-06-16 10:52 | PN ---
THC Physician - Brief Progress [id number]/06/2020 10:48[facility] Malini Gomez, BLANCA - WHIT (WALDEMAR) - WHIT KATIE FLANAGAN, Covid +Date of Service 06/16/2020 10:48HP I/Events of Note eICU progress note:64-year-old female currently admitted to the ICU for acute hypoxi c respiratory failure secondary to COVID-19.Patient seen on camera, does not appear to be in acute di stress and conversing with bedside team and currently off noninvasive therapy.Vital signs reviewed. HR 80, SPO2 95%Labs reviewedAcute hypoxic respiratory failure-No new recommendations at this time. C ontinue to wean O2 as tolerated. Agree with keeping noninvasive therapy as needed for refractory hyp oxia-Secondary to COVID-19 infection. -PPE and isolation per institution policy-Agree with empiric an tibiotic coverage for superimposed bacterial infection-Agree with Decadron and Remdesevir.-Recommend self proning as tolerated-Recommend keeping patient euvolemic as much as possible.-Nebs as needed-Con tinue with DVT and GI prophylaxisThank you for allowing us to participate in the care of your patient Interventions Major-Hypoxemia - evaluation and management, Infection - evaluation and management, Res piratory failure - evaluation and managementElectronically Signed by: DONA ABREU) on 020 10:51
[2020-06-16] MEDS: Brimonidine 0.2% Ophth Soln 5 ML Bottle EYEBOTH SCH ×2 (11:03→20:28)
[2020-06-16 11:24] LABS: BLOOD UREA NITROGEN,BUN 26 mg/dL (7.0-18.0); CARBON DIOXIDE,CO2 29.1 mmol/L (21.0-32.0); CHLORIDE,CL 102 mmol/L (98-107); GLUCOSE RANDOM 247 mg/dL (74-106); SODIUM,NA 141 mmol/L (136-145)
[2020-06-16] MEDS ORDERED: Furosemide 20 MG in Sodium Chloride 0.9% 50 ML IV ONE (12:04)
--- NOTE | 2020-06-16 12:12 | PCM.PN ---
- General Info Date of Service: 06/16/20 Admission Dx/Problem (Free Text): Admission Diagnosis/Problem Admission Diagnosis/Problem Pneumonia Subjective Update: awake, alert, feels comfortable, on high flow 10 lts, tolerating it well Functional Status: Reports: Pain Controlled, Tolerating Diet, Urinating. Denies: Ambulating - Review of Systems General: Reports: Weakness, Malaise. Denies: Fever, Fatigue, Chills, Night Sweats HEENT: Denies: Contact Lenses, Dysphasia, Ear Pain Pulmonary: Reports: Shortness of Breath, Cough, Sputum. Denies: Pleuritic Chest Pain Cardiovascular: Reports: Dyspnea on Exertion. Denies: Chest Pain, Palpitations, Orthopnea, Edema Gastrointestinal: Denies: Abdominal Pain, Constipation, Decreased Appetite Genitourinary: Denies: Dysuria, Frequency, Burning Musculoskeletal: Denies: Neck Pain, Shoulder Pain, Arm Pain, Hand Pain Skin: Denies: Cyanosis, Jaundice, Mottled - Patient Data Vitals - Most Recent: Last Vital Signs Temp 36 C L 06/16/20 11:21 Pulse 74 06/16/20 07:10 Resp 24 H 06/16/20 11:21 BP 153/70 H 06/16/20 11:21 Pulse Ox 96 06/16/20 11:21 Weight - Most Recent: 82 kg I&O - Last 24 Hours: Intake & Output 06/15/20 06/16/20 06/16/20 22:59 06:59 14:59 Intake Total 770 300 50 Output Total 1400 650 Balance -630 -350 50 Lab Results Last 24 Hours: Laboratory Results - last 24 hr 06/13/20 06/14/20 06/15/20 Range/Units 15:46 10:15 16:32 WBC (4.0-11.0) K/uL RBC (4.30-5.90) M/uL Hgb (12.0-16.0) g/dL Hct (36.0-46.0) % MCV (80.0-98.0) fL MCH (27.0-32.0) pg MCHC (31.0-37.0) g/dL RDW Std Deviation (28.0-62.0) fl RDW Coeff of Alec (11.0-15.0) % Plt Count (150-400) K/uL MPV (7.40-12.00) fL Neut % (Auto) (48.0-80.0) % Lymph % (Auto) (16.0-40.0) % [place] % (Auto) (0.0-15.0) % Eos % (Auto) (0.0-7.0) % Baso % (Auto) (0.0-1.5) % Neut # (Auto) (1.4-5.7) K/uL Lymph # (Auto) (0.6-2.4) K/uL [place] # (Auto) (0.0-0.8) K/uL Eos # (Auto) (0.0-0.7) K/uL Baso # (Auto) (0.0-0.1) K/uL Nucleated RBC % /100WBC Nucleated RBCs # K/uL Sodium (136-145) mmol/L Potassium (3.5-5.1) mmol/L Chloride (98-107) mmol/L Carbon Dioxide (21.0-32.0) mmol/L BUN (7.0-18.0) mg/dL Creatinine (0.6-1.0) mg/dL Est Cr Clr Drug Dosing mL/min Estimated GFR (MDRD) ml/min Glucose (74-106) mg/dL POC Glucose 293 H (60-110) mg/dL Calcium (8.5-10.1) mg/dL Phosphorus (2.6-4.7) mg/dL Magnesium (1.8-2.4) mg/dL Total Bilirubin (0.2-1.0) mg/dL AST (15-37) IU/L ALT (14-63) IU/L Alkaline Phosphatase (46-116) U/L Troponin I (0.000-0.056) ng/mL Total Protein (6.4-8.2) g/dL Albumin (3.4-5.0) g/dL Globulin (2.6-4.0) g/dL Albumin/Globulin Ratio (0.9-1.6) Procalcitonin 0.06 (<0.10) ng/mL Blood Type O POSITIVE 06/15/20 06/15/20 06/16/20 Range/Units 20:20 23:19 00:05 WBC (4.0-11.0) K/uL RBC (4.30-5.90) M/uL Hgb (12.0-16.0) g/dL Hct (36.0-46.0) % MCV (80.0-98.0) fL MCH (27.0-32.0) pg MCHC (31.0-37.0) g/dL RDW Std Deviation (28.0-62.0) fl RDW Coeff of Alec (11.0-15.0) % Plt Count (150-400) K/uL MPV (7.40-12.00) fL Neut % (Auto) (48.0-80.0) % Lymph % (Auto) (16.0-40.0) % [place] % (Auto) (0.0-15.0) % Eos % (Auto) (0.0-7.0) % Baso % (Auto) (0.0-1.5) % Neut # (Auto) (1.4-5.7) K/uL Lymph # (Auto) (0.6-2.4) K/uL [place] # (Auto) (0.0-0.8) K/uL Eos # (Auto) (0.0-0.7) K/uL Baso # (Auto) (0.0-0.1) K/uL Nucleated RBC % /100WBC Nucleated RBCs # K/uL Sodium (136-145) mmol/L Potassium (3.5-5.1) mmol/L Chloride (98-107) mmol/L Carbon Dioxide (21.0-32.0) mmol/L BUN (7.0-18.0) mg/dL Creatinine (0.6-1.0) mg/dL Est Cr Clr Drug Dosing mL/min Estimated GFR (MDRD) ml/min Glucose (74-106) mg/dL POC Glucose 210 H 177 H (60-110) mg/dL Calcium (8.5-10.1) mg/dL Phosphorus (2.6-4.7) mg/dL Magnesium (1.8-2.4) mg/dL Total Bilirubin (0.2-1.0) mg/dL AST (15-37) IU/L ALT (14-63) IU/L Alkaline Phosphatase (46-116) U/L Troponin I < 0.050 (0.000-0.056) ng/mL Total Protein (6.4-8.2) g/dL Albumin (3.4-5.0) g/dL Globulin (2.6-4.0) g/dL Albumin/Globulin Ratio (0.9-1.6) Procalcitonin (<0.10) ng/mL Blood Type 06/16/20 06/16/20 06/16/20 Range/Units 04:27 07:50 10:55 WBC 10.79 (4.0-11.0) K/uL RBC 5.28 (4.30-5.90) M/uL Hgb 15.2 (12.0-16.0) g/dL Hct 48.6 H (36.0-46.0) % MCV 92.0 (80.0-98.0) fL MCH 28.8 (27.0-32.0) pg MCHC 31.3 (31.0-37.0) g/dL RDW Std Deviation 50.4 (28.0-62.0) fl RDW Coeff of Alec 15 (11.0-15.0) % Plt Count 335 (150-400) K/uL MPV 9.20 (7.40-12.00) fL Neut % (Auto) 87.7 H (48.0-80.0) % Lymph % (Auto) 7.3 L (16.0-40.0) % [place] % (Auto) 4.4 (0.0-15.0) % Eos % (Auto) 0.4 (0.0-7.0) % Baso % (Auto) 0.2 (0.0-1.5) % Neut # (Auto) 9.5 H (1.4-5.7) K/uL Lymph # (Auto) 0.8 (0.6-2.4) K/uL [place] # (Auto) 0.5 (0.0-0.8) K/uL Eos # (Auto) 0.0 (0.0-0.7) K/uL Baso # (Auto) 0.0 (0.0-0.1) K/uL Nucleated RBC % 0.0 /100WBC Nucleated RBCs # 0 K/uL Sodium (136-145) mmol/L Potassium (3.5-5.1) mmol/L Chloride (98-107) mmol/L Carbon Dioxide (21.0-32.0) mmol/L BUN (7.0-18.0) mg/dL Creatinine (0.6-1.0) mg/dL Est Cr Clr Drug Dosing mL/min Estimated GFR (MDRD) ml/min Glucose (74-106) mg/dL POC Glucose 147 H 149 H (60-110) mg/dL Calcium (8.5-10.1) mg/dL Phosphorus (2.6-4.7) mg/dL Magnesium (1.8-2.4) mg/dL Total Bilirubin (0.2-1.0) mg/dL AST (15-37) IU/L ALT (14-63) IU/L Alkaline Phosphatase (46-116) U/L Troponin I (0.000-0.056) ng/mL Total Protein (6.4-8.2) g/dL Albumin (3.4-5.0) g/dL Globulin (2.6-4.0) g/dL Albumin/Globulin Ratio (0.9-1.6) Procalcitonin (<0.10) ng/mL Blood Type 06/16/20 Range/Units 10:55 WBC (4.0-11.0) K/uL RBC (4.30-5.90) M/uL Hgb (12.0-16.0) g/dL Hct (36.0-46.0) % MCV (80.0-98.0) fL MCH (27.0-32.0) pg MCHC (31.0-37.0) g/dL RDW Std Deviation (28.0-62.0) fl RDW Coeff of Alec (11.0-15.0) % Plt Count (150-400) K/uL MPV (7.40-12.00) fL Neut % (Auto) (48.0-80.0) % Lymph % (Auto) (16.0-40.0) % [place] % (Auto) (0.0-15.0) % Eos % (Auto) (0.0-7.0) % Baso % (Auto) (0.0-1.5) % Neut # (Auto) (1.4-5.7) K/uL Lymph # (Auto) (0.6-2.4) K/uL [place] # (Auto) (0.0-0.8) K/uL Eos # (Auto) (0.0-0.7) K/uL Baso # (Auto) (0.0-0.1) K/uL Nucleated RBC % /100WBC Nucleated RBCs # K/uL Sodium 141 (136-145) mmol/L Potassium 4.0 (3.5-5.1) mmol/L Chloride 102 (98-107) mmol/L Carbon Dioxide 29.1 (21.0-32.0) mmol/L BUN 26 H (7.0-18.0) mg/dL Creatinine 0.7 (0.6-1.0) mg/dL Est Cr Clr Drug Dosing 74.02 mL/min Estimated GFR (MDRD) > 60.0 ml/min Glucose 247 H (74-106) mg/dL POC Glucose (60-110) mg/dL Calcium 9.0 (8.5-10.1) mg/dL Phosphorus 3.4 (2.6-4.7) mg/dL Magnesium 2.0 (1.8-2.4) mg/dL Total Bilirubin 0.6 (0.2-1.0) mg/dL AST 32 (15-37) IU/L ALT 24 (14-63) IU/L Alkaline Phosphatase 74 (46-116) U/L Troponin I (0.000-0.056) ng/mL Total Protein 7.2 (6.4-8.2) g/dL Albumin 3.0 L (3.4-5.0) g/dL Globulin 4.2 H (2.6-4.0) g/dL Albumin/Globulin Ratio 0.7 L (0.9-1.6) Procalcitonin (<0.10) ng/mL Blood Type Jhonathan Results Last 24 Hours: Microbiology 06/11/20 14:25 Aerobic Blood Culture - Preliminary Blood - Venous - Lab Draw NO GROWTH AFTER 4 DAYS Anaerobic Blood Culture - Preliminary NO GROWTH AFTER 4 DAYS 06/11/20 14:15 Aerobic Blood Culture - Preliminary Blood - Arm, Right NO GROWTH AFTER 4 DAYS Anaerobic Blood Culture - Preliminary NO GROWTH AFTER 4 DAYS Med Orders - Current: Current Medications Acetaminophen (Tylenol) 650 mg PO Q4H PRN PRN Reason: Pain (Mild 1-3)/fever Last Admin: 06/16/20 00:15 Dose: 650 mg Documented by: Albuterol/Ipratropium (Combivent Respimat) 0 gm INH Q4H PRN PRN Reason: Dyspnea Last Admin: 06/14/20 10:14 Dose: 1 puff Documented by: Albuterol/Ipratropium (Duoneb 3.0-0.5 Mg/3 Ml) 3 ml NEB Q4HRRT [facility] Last Admin: 06/16/20 09:51 Dose: 3 ml Documented by: Brimonidine Tartrate (Alphagan 0.2% Ophth Soln) 0 ml EYEBOTH BID [facility] Last Admin: 06/16/20 11:03 Dose: 1 drop Documented by: Dexamethasone (Dexamethasone) 6 mg PO DAILY [facility] Last Admin: 06/16/20 08:01 Dose: 6 mg Documented by: Dextrose/Water (Dextrose 50% In Water) 50 ml IVPUSH ONETIME PRN PRN Reason: HYPOGLYCEMIA Last Admin: 06/12/20 06:03 Dose: 50 ml Documented by: Enoxaparin Sodium (Lovenox) 40 mg SUBCUT Q12HR [facility] Last Admin: 06/16/20 08:53 Dose: 40 mg Documented by: Remdesivir 100 mg/ Sodium (Chloride) 100 mls @ 100 mls/hr IV Q24H [facility] Last Admin: 06/15/20 14:11 Dose: 100 mls/hr Documented by: Azithromycin 500 mg/ Sodium (Chloride) 250 mls @ 250 mls/hr IV Q24H [facility] Last Admin: 06/15/20 14:39 Dose: 250 mls/hr Documented by: Ceftriaxone Sodium/Dextrose 1 (gm/ Premix) 50 mls @ 100 mls/hr IV Q24H [facility] Last Admin: 06/15/20 15:21 Dose: 100 mls/hr Documented by: Pantoprazole Sodium 40 mg/ (Sodium Chloride) 10 mls @ 300 mls/hr IV DAILY [facility] Last Admin: 06/16/20 08:02 Dose: 300 mls/hr Documented by: Furosemide 20 mg/ Sodium (Chloride) 52 mls @ 100 mls/hr IV ONETIME ONE Stop: 06/16/20 12:35 Insulin Aspart (Novolog) 0 unit SUBCUT TIDAC [facility]; Protocol Latanoprost (Xalatan 0.005% Ophth Soln) 0 ml EYEBOTH BEDTIME [facility] Morphine Sulfate (Morphine) 1 mg IVPUSH Q1H PRN PRN Reason: Pain Last Admin: 06/14/20 18:23 Dose: 1 mg Documented by: Dorzolamide/Timolol 2%-0.5% Ophth Soln 10 Ml Bottle 0 each EYEBOTH ACBREAKFAST [facility] Sodium Chloride (Saline Flush) 10 ml FLUSH ASDIRECTED PRN PRN Reason: Keep Vein Open Last Admin: 06/14/20 09:30 Dose: 10 ml Documented by: Sodium Chloride (Saline Flush) 2.5 ml FLUSH ASDIRECTED PRN PRN Reason: Keep Vein Open Last Admin: 06/11/20 23:24 Dose: 2.5 ml Documented by: Discontinued Medications Albuterol/Ipratropium (Duoneb 3.0-0.5 Mg/3 Ml) 3 ml NEB Q4HRRT PRN PRN Reason: Shortness of Breath Last Admin: 06/13/20 20:24 Dose: 3 ml Documented by: Azithromycin (Zithromax) 500 mg PO Q24H [facility] Last Admin: 06/11/20 14:54 Dose: 500 mg Documented by: Dexamethasone (Dexamethasone) 6 mg IVPUSH ONETIME ONE Stop: 06/11/20 10:29 Last Admin: 06/11/20 10:45 Dose: 6 mg Documented by: Dextrose/Water (Dextrose 50% In Water) Confirm Administered Dose 50 ml .ROUTE .STK-MED ONE Stop: 06/12/20 06:00 Last Admin: 06/12/20 06:10 Dose: 50 ml Documented by: Furosemide (Lasix) 20 mg IVPUSH NOW ONE Stop: 06/15/20 11:58 Last Admin: 06/15/20 12:30 Dose: 20 mg Documented by: Azithromycin 500 mg/ Sodium (Chloride) 250 mls @ 250 mls/hr IV ONETIME [facility] Ceftriaxone Sodium/Dextrose 1 (gm/ Premix) 50 mls @ 100 mls/hr IV ONETIME ONE Stop: 06/11/20 14:10 Last Admin: 06/11/20 15:35 Dose: Not Given Documented by: Ceftriaxone Sodium 1 gm/ (Sodium Chloride) 50 mls @ 100 mls/hr IV Q24H [facility] Last Admin: 06/11/20 14:53 Dose: 100 mls/hr Documented by: Remdesivir 200 mg/ Sodium (Chloride) 250 mls @ 250 mls/hr IV ONETIME ONE Stop: 06/11/20 13:45 Last Admin: 06/11/20 18:59 Dose: 250 mls/hr Documented by: Ceftriaxone Sodium/Dextrose (Rocephin In Dextrose,Iso-Osm 1 Gm/50 Ml) Confirm Administered Dose 50 mls @ as directed .ROUTE .STK-MED ONE Stop: 06/11/20 14:06 Last Admin: 06/11/20 14:38 Dose: Not Given Documented by: Insulin Aspart (Novolog) 0 unit SUBCUT TIDAC [facility]; Protocol Last Admin: 06/12/20 08:08 Dose: Not Given Documented by: Insulin Aspart (Novolog) 0 unit SUBCUT TIDAC [facility]; Protocol Last Admin: 06/16/20 07:52 Dose: Not Given Documented by: Iopamidol (Isovue Multipack-370 (76%)) 75 ml IVPUSH ONETIME STA Stop: 06/11/20 13:16 Last Admin: 06/11/20 13:15 Dose: 75 ml Documented by: Lorazepam (Ativan) 1 mg IVPUSH ONETIME ONE Stop: 06/13/20 12:30 Last Admin: 06/13/20 13:18 Dose: 1 mg Documented by: Lorazepam (Ativan) Confirm Administered Dose 2 mg .ROUTE .STK-MED ONE Stop: 06/13/20 13:15 Last Admin: 06/13/20 19:15 Dose: Not Given Documented by: Losartan Potassium (Cozaar) 100 mg PO DAILY [facility] Last Admin: 06/13/20 09:28 Dose: 100 mg Documented by: Potassium Chloride (Klor-Con M20) 40 meq PO ONETIME ONE Stop: 06/11/20 13:47 Last Admin: 06/11/20 14:24 Dose: 40 meq Documented by: Pregabalin (Lyrica) 75 mg PO TID [facility] Last Admin: 06/13/20 19:16 Dose: Not Given Documented by: Tramadol HCl (Ultram) 50 mg PO Q6H PRN PRN Reason: Pain - Exam Quality Assessment: Supplemental Oxygen General: Alert, Oriented Neck: Supple Lungs: Normal Respiratory Effort, Crackles, Rales Cardiovascular: Regular Rate, Regular Rhythm GI/Abdominal Exam: Normal Bowel Sounds, Soft, Non-Tender Sepsis Event Note - Evaluation Sepsis Screening Result: No Definite Risk - Focused Exam Vital Signs: Vital Signs Temp Temp Pulse Resp BP Pulse Ox Pulse Ox 06/16/20 11:21 36 C L 24 H 153/70 H 96 06/16/20 11:06 36.1 C 27 H 153/65 H 97 06/16/20 11:00 25 H 147/67 H 96 06/16/20 10:51 36.0 C L 27 H 147/67 H 95 06/16/20 10:00 26 H 144/68 H 92 L 06/16/20 09:00 25 H 138/54 L 95 94 L 06/16/20 08:00 36.5 C 25 H 146/60 H 92 L 06/16/20 07:10 74 28 H 153/67 H 92 L 06/16/20 06:02 79 28 H 153/75 H 93 L 06/16/20 05:01 59 L 25 H 157/70 H 92 L 06/16/20 04:10 36.5 C 72 26 H 145/64 H 94 L 06/16/20 03:10 69 25 H 139/68 93 L 06/16/20 02:00 65 23 H 128/59 L 92 L 06/16/20 01:00 72 27 H 129/69 91 L - Problem List & Annotations (1) Hypoxia SNOMED Code(s): 281150079 Code(s): R09.02 - HYPOXEMIA Status: Acute Current Visit: Yes (2) Pneumonia due to COVID-19 virus SNOMED Code(s): 755343518360073824 Code(s): U07.1 - COVID-19; J12.89 - OTHER VIRAL PNEUMONIA Status: Acute Current Visit: Yes - Problem List Review Problem List Initiated/Reviewed/Updated: Yes - My Orders Last 24 Hours: My Active Orders 06/16/20 12:04 Furosemide [Lasix] 20 mg Sodium Chloride 0.9% [Normal Saline] 50 ml IV ONETIME - Plan Plan:: 64 yo female admitted for COVID pneumonia. cont on High flow for acute hypoxic respiratory failure, cont intermediate BiPAP, Fio2 requirement is improving. cont dexamethasone, Remdesivir and BID lovenox. cont Rocephin and Azithromycin for possible pneumonia, awaiting Procalcitonin Will administer 1 time lasix cont scheduled DuoNebs Obtained consent for convalescent plasma, will transfuse 2nd unit today DM: SSI medium dose
[2020-06-16] MEDS ORDERED: Furosemide 20 MG/2 ML VIAL IVPUSH ONE (12:15)
[2020-06-16] MEDS: Azithromycin 500 MG in Sodium Chloride 0.9% 250 ML IV SCH (13:20)
[2020-06-16] MEDS: REMDESIVIR (EUA) 100 MG in Sodium Chloride 0.9% 100 ML IV SCH (13:57)
[2020-06-16] MEDS: cefTRIAXone 1 GM in Premix Bag 1 BAG IV SCH (14:50)
[2020-06-16] MEDS: Latanoprost 0.005% Ophth Soln 2.5 ML Bottle EYEBOTH SCH (20:38)
--- NOTE | 2020-06-16 22:13 | PN ---
THC Physician - Brief Progress [id number]/06/2020 22:12[facility] Malini escobedo, BLANCA - WHIT (WALDEMAR) - KATIE AKBAR Covid +Date of Service 06/16/2020 22:12HP I/Events of Note eICU Update noteNotified patient hyperglycemic with glucose in 200s. Increased slidi ng scale insulin coverage to high dose.Interventions Major-Hyperglycemia - active titration of insuli n therapy
[2020-06-17] MEDS: Albuterol/Ipratropium 3.0-0.5 MG/3 ML Neb Soln NEB SCH ×6 (02:03→21:10)
[2020-06-17 06:22] LABS: BLOOD UREA NITROGEN,BUN 26 mg/dL (7.0-18.0); CHLORIDE,CL 103 mmol/L (98-107); GLUCOSE RANDOM 162 mg/dL (74-106); POTASSIUM,K 3.3 mmol/L (3.5-5.1); SODIUM,NA 141 mmol/L (136-145)
[2020-06-17] MEDS: Insulin Aspart 100 Units/ML 3 ML Pen SUBCUT SCH ×3 (06:53→17:41)
[2020-06-17] MEDS: Dorzolamide/Timolol 2%-0.5% Ophth Soln 10 ML Bottle EYEBOTH SCH (08:39)
--- NOTE | 2020-06-17 09:18 | PN ---
THC Physician - Brief Progress [id number]/07/2020 09:05[facility] Malini Gomez, [place] - WHIT (WALDEMAR) - WHIT KATIE FLANAGANSoledad, Covid +Date of Service 06/17/2020 09:05HP I/Events of Note eICU progress [id number] female currently admitted to the ICU for hypoxic respi ratory failure secondary to COVID-19. No acute issues overnight and patient currently on nasal cannu la.Patient seen on camera, sitting up in chair eyes closed with TV on and appears to be sleeping. Do es not appear to be in acute distress.Vital signs reviewed. SPO2 95%, HR 73Labs/EMR reviewedAcute hy poxic respiratory failure-Continue to wean O2 as tolerated-Secondary to COVID-19 infection.-PPE and i solation per institution policy-Continue with CAP coverage-Continue with with Decadron, Remdesevir an d convalescent plasma to complete therapy.-Recommend self proning as tolerated-Recommend keeping wesley ent euvolemic as much as possible. Lasix given yesterday.-Nebs as needed-Continue with DVT and GI pr ophylaxisInterventions Major-Hypoxemia - evaluation and management, Infection - evaluation and manage ment, Respiratory failure - evaluation and managementElectronically Signed by: DONA ABREU) chico daigle 06/17/2020 09:17
[2020-06-17] MEDS ORDERED: Potassium Chloride 20 MEQ Tab.ER PO ONE (09:28)
[2020-06-17] MEDS: Brimonidine 0.2% Ophth Soln 5 ML Bottle EYEBOTH SCH ×2 (09:53→20:31)
[2020-06-17] MEDS: Dexamethasone 4 MG Tab PO SCH (09:54)
[2020-06-17] MEDS: Enoxaparin 40 MG/0.4 ML Syringe SUBCUT SCH ×2 (09:54→20:31)
[2020-06-17] MEDS: Pantoprazole 40 MG in Sodium Chloride 0.9% 10 ML IV SCH (09:55)
[2020-06-17] MEDS: Acetaminophen 325 MG Tab PO PRN ×2 (12:26→20:47)
--- NOTE | 2020-06-17 12:58 | PCM.PN ---
- General Info Date of Service: 06/17/20 Admission Dx/Problem (Free Text): Admission Diagnosis/Problem Admission Diagnosis/Problem Pneumonia Subjective Update: awake, alert, feels comfortable, on bipap, was on high flow this am , feeling better - Review of Systems General: Reports: Weakness, Fatigue, Malaise. Denies: Fever HEENT: Denies: Visual Changes Pulmonary: Denies: Shortness of Breath Cardiovascular: Denies: Chest Pain, Palpitations, Dyspnea on Exertion Gastrointestinal: Denies: Abdominal Pain, Constipation, Decreased Appetite Genitourinary: Denies: Dysuria, Frequency, Burning, Pain Musculoskeletal: Denies: Neck Pain, Shoulder Pain, Arm Pain, Hand Pain Skin: Denies: Cyanosis, Jaundice, Mottled - Patient Data Vitals - Most Recent: Last Vital Signs Temp 35.8 C L 06/17/20 08:00 Pulse 77 06/17/20 11:16 Resp 24 H 06/17/20 11:16 BP 131/59 L 06/17/20 11:16 Pulse Ox 93 L 06/17/20 11:16 Weight - Most Recent: 79.8 kg I&O - Last 24 Hours: Intake & Output 06/16/20 06/17/20 06/17/20 22:59 06:59 14:59 Intake Total 688 370 Output Total 1300 650 Balance -612 -280 Lab Results Last 24 Hours: Laboratory Results - last 24 hr 06/16/20 06/16/20 06/17/20 Range/Units 17:45 20:35 05:37 WBC 7.38 (4.0-11.0) K/uL RBC 5.06 (4.30-5.90) M/uL Hgb 14.6 (12.0-16.0) g/dL Hct 46.0 (36.0-46.0) % MCV 90.9 (80.0-98.0) fL MCH 28.9 (27.0-32.0) pg MCHC 31.7 (31.0-37.0) g/dL RDW Std Deviation 48.0 (28.0-62.0) fl RDW Coeff of Alec 15 (11.0-15.0) % Plt Count 318 (150-400) K/uL MPV 9.40 (7.40-12.00) fL Neut % (Auto) 83.4 H (48.0-80.0) % Lymph % (Auto) 11.2 L (16.0-40.0) % Union % (Auto) 4.5 (0.0-15.0) % Eos % (Auto) 0.8 (0.0-7.0) % Baso % (Auto) 0.1 (0.0-1.5) % Neut # (Auto) 6.2 H (1.4-5.7) K/uL Lymph # (Auto) 0.8 (0.6-2.4) K/uL Union # (Auto) 0.3 (0.0-0.8) K/uL Eos # (Auto) 0.1 (0.0-0.7) K/uL Baso # (Auto) 0.0 (0.0-0.1) K/uL Nucleated RBC % 0.0 /100WBC Nucleated RBCs # 0 K/uL Sodium (136-145) mmol/L Potassium (3.5-5.1) mmol/L Chloride (98-107) mmol/L Carbon Dioxide (21.0-32.0) mmol/L BUN (7.0-18.0) mg/dL Creatinine (0.6-1.0) mg/dL Est Cr Clr Drug Dosing mL/min Estimated GFR (MDRD) ml/min Glucose (74-106) mg/dL POC Glucose 268 H 273 H (60-110) mg/dL Calcium (8.5-10.1) mg/dL Phosphorus (2.6-4.7) mg/dL Magnesium (1.8-2.4) mg/dL Total Bilirubin (0.2-1.0) mg/dL AST (15-37) IU/L ALT (14-63) IU/L Alkaline Phosphatase (46-116) U/L Total Protein (6.4-8.2) g/dL Albumin (3.4-5.0) g/dL Globulin (2.6-4.0) g/dL Albumin/Globulin Ratio (0.9-1.6) 06/17/20 06/17/20 06/17/20 Range/Units 05:37 06:48 12:15 WBC (4.0-11.0) K/uL RBC (4.30-5.90) M/uL Hgb (12.0-16.0) g/dL Hct (36.0-46.0) % MCV (80.0-98.0) fL MCH (27.0-32.0) pg MCHC (31.0-37.0) g/dL RDW Std Deviation (28.0-62.0) fl RDW Coeff of Alec (11.0-15.0) % Plt Count (150-400) K/uL MPV (7.40-12.00) fL Neut % (Auto) (48.0-80.0) % Lymph % (Auto) (16.0-40.0) % Union % (Auto) (0.0-15.0) % Eos % (Auto) (0.0-7.0) % Baso % (Auto) (0.0-1.5) % Neut # (Auto) (1.4-5.7) K/uL Lymph # (Auto) (0.6-2.4) K/uL Union # (Auto) (0.0-0.8) K/uL Eos # (Auto) (0.0-0.7) K/uL Baso # (Auto) (0.0-0.1) K/uL Nucleated RBC % /100WBC Nucleated RBCs # K/uL Sodium 141 (136-145) mmol/L Potassium 3.3 L (3.5-5.1) mmol/L Chloride 103 (98-107) mmol/L Carbon Dioxide 30.0 (21.0-32.0) mmol/L BUN 26 H (7.0-18.0) mg/dL Creatinine 0.7 (0.6-1.0) mg/dL Est Cr Clr Drug Dosing 74.02 mL/min Estimated GFR (MDRD) > 60.0 ml/min Glucose 162 H (74-106) mg/dL POC Glucose 134 H 205 H (60-110) mg/dL Calcium 8.8 (8.5-10.1) mg/dL Phosphorus 3.2 (2.6-4.7) mg/dL Magnesium 1.9 (1.8-2.4) mg/dL Total Bilirubin 0.6 (0.2-1.0) mg/dL AST 29 (15-37) IU/L ALT 22 (14-63) IU/L Alkaline Phosphatase 75 (46-116) U/L Total Protein 6.8 (6.4-8.2) g/dL Albumin 2.9 L (3.4-5.0) g/dL Globulin 3.9 (2.6-4.0) g/dL Albumin/Globulin Ratio 0.7 L (0.9-1.6) Jhonathan Results Last 24 Hours: Microbiology 06/11/20 14:25 Aerobic Blood Culture - Final Blood - Venous - Lab Draw NO GROWTH AFTER 5 DAYS Anaerobic Blood Culture - Final NO GROWTH AFTER 5 DAYS 06/11/20 14:15 Aerobic Blood Culture - Final Blood - Arm, Right NO GROWTH AFTER 5 DAYS Anaerobic Blood Culture - Final NO GROWTH AFTER 5 DAYS Med Orders - Current: Current Medications Acetaminophen (Tylenol) 650 mg PO Q4H PRN PRN Reason: Pain (Mild 1-3)/fever Last Admin: 06/17/20 12:26 Dose: 650 mg Documented by: Albuterol/Ipratropium (Combivent Respimat) 0 gm INH Q4H PRN PRN Reason: Dyspnea Last Admin: 06/14/20 10:14 Dose: 1 puff Documented by: Albuterol/Ipratropium (Duoneb 3.0-0.5 Mg/3 Ml) 3 ml NEB Q4HRRT [facility] Last Admin: 06/17/20 09:35 Dose: 3 ml Documented by: Brimonidine Tartrate (Alphagan 0.2% Ophth Soln) 0 ml EYEBOTH BID [facility] Last Admin: 06/17/20 09:53 Dose: 1 drop Documented by: Dexamethasone (Dexamethasone) 6 mg PO DAILY [facility] Last Admin: 06/17/20 09:54 Dose: 6 mg Documented by: Dextrose/Water (Dextrose 50% In Water) 50 ml IVPUSH ONETIME PRN PRN Reason: HYPOGLYCEMIA Last Admin: 06/12/20 06:03 Dose: 50 ml Documented by: Enoxaparin Sodium (Lovenox) 40 mg SUBCUT Q12HR [facility] Last Admin: 06/17/20 09:54 Dose: 40 mg Documented by: Remdesivir 100 mg/ Sodium (Chloride) 100 mls @ 100 mls/hr IV Q24H [facility] Last Admin: 06/16/20 13:57 Dose: 100 mls/hr Documented by: Azithromycin 500 mg/ Sodium (Chloride) 250 mls @ 250 mls/hr IV Q24H [facility] Last Admin: 06/16/20 13:20 Dose: 250 mls/hr Documented by: Ceftriaxone Sodium/Dextrose 1 (gm/ Premix) 50 mls @ 100 mls/hr IV Q24H [facility] Last Admin: 06/16/20 14:50 Dose: 100 mls/hr Documented by: Pantoprazole Sodium 40 mg/ (Sodium Chloride) 10 mls @ 300 mls/hr IV DAILY [facility] Last Admin: 06/17/20 09:55 Dose: 300 mls/hr Documented by: Insulin Aspart (Novolog) 0 unit SUBCUT TIDAC [facility]; Protocol Last Admin: 06/17/20 06:53 Dose: Not Given Documented by: Latanoprost (Xalatan 0.005% Ophth Soln) 0 ml EYEBOTH BEDTIME [facility] Last Admin: 06/16/20 20:38 Dose: 1 drop Documented by: Morphine Sulfate (Morphine) 1 mg IVPUSH Q1H PRN PRN Reason: Pain Last Admin: 06/14/20 18:23 Dose: 1 mg Documented by: Dorzolamide/Timolol 2%-0.5% Ophth Soln 10 Ml Bottle 0 each EYEBOTH ACBREAKFAST [facility] Last Admin: 06/17/20 08:39 Dose: Not Given Documented by: Sodium Chloride (Saline Flush) 10 ml FLUSH ASDIRECTED PRN PRN Reason: Keep Vein Open Last Admin: 06/14/20 09:30 Dose: 10 ml Documented by: Sodium Chloride (Saline Flush) 2.5 ml FLUSH ASDIRECTED PRN PRN Reason: Keep Vein Open Last Admin: 06/11/20 23:24 Dose: 2.5 ml Documented by: Discontinued Medications Albuterol/Ipratropium (Duoneb 3.0-0.5 Mg/3 Ml) 3 ml NEB Q4HRRT PRN PRN Reason: Shortness of Breath Last Admin: 06/13/20 20:24 Dose: 3 ml Documented by: Azithromycin (Zithromax) 500 mg PO Q24H [facility] Last Admin: 06/11/20 14:54 Dose: 500 mg Documented by: Dexamethasone (Dexamethasone) 6 mg IVPUSH ONETIME ONE Stop: 06/11/20 10:29 Last Admin: 06/11/20 10:45 Dose: 6 mg Documented by: Dextrose/Water (Dextrose 50% In Water) Confirm Administered Dose 50 ml .ROUTE .STK-MED ONE Stop: 06/12/20 06:00 Last Admin: 06/12/20 06:10 Dose: 50 ml Documented by: Furosemide (Lasix) 20 mg IVPUSH NOW ONE Stop: 06/15/20 11:58 Last Admin: 06/15/20 12:30 Dose: 20 mg Documented by: Furosemide (Lasix) 20 mg IVPUSH ONETIME ONE Stop: 06/16/20 12:16 Last Admin: 06/16/20 13:19 Dose: 20 mg Documented by: Azithromycin 500 mg/ Sodium (Chloride) 250 mls @ 250 mls/hr IV ONETIME [facility] Ceftriaxone Sodium/Dextrose 1 (gm/ Premix) 50 mls @ 100 mls/hr IV ONETIME ONE Stop: 06/11/20 14:10 Last Admin: 06/11/20 15:35 Dose: Not Given Documented by: Ceftriaxone Sodium 1 gm/ (Sodium Chloride) 50 mls @ 100 mls/hr IV Q24H [facility] Last Admin: 06/11/20 14:53 Dose: 100 mls/hr Documented by: Remdesivir 200 mg/ Sodium (Chloride) 250 mls @ 250 mls/hr IV ONETIME ONE Stop: 06/11/20 13:45 Last Admin: 06/11/20 18:59 Dose: 250 mls/hr Documented by: Ceftriaxone Sodium/Dextrose (Rocephin In Dextrose,Iso-Osm 1 Gm/50 Ml) Confirm Administered Dose 50 mls @ as directed .ROUTE .[facility] ONE Stop: 06/11/20 14:06 Last Admin: 06/11/20 14:38 Dose: Not Given Documented by: [facility]) [facility] Protocol Last Admin: 06/12/20 08:08 Dose: Not Given Documented by: Insulin Aspart (Novolog) 0 unit SUBCUT TIDAC [facility]; Protocol Last Admin: 06/16/20 07:52 Dose: Not Given Documented by: Iopamidol (Isovue Multipack-370 (76%)) 75 ml IVPUSH ONETIME STA Stop: 06/11/20 13:16 Last Admin: 06/11/20 13:15 Dose: 75 ml Documented by: Lorazepam (Ativan) 1 mg IVPUSH ONETIME ONE Stop: 06/13/20 12:30 Last Admin: 06/13/20 13:18 Dose: 1 mg Documented by: Lorazepam (Ativan) Confirm Administered Dose 2 mg .ROUTE .STK-MED ONE Stop: 06/13/20 13:15 Last Admin: 06/13/20 19:15 Dose: Not Given Documented by: Losartan Potassium (Cozaar) 100 mg PO DAILY [facility] Last Admin: 06/13/20 09:28 Dose: 100 mg Documented by: Potassium Chloride (Klor-Con M20) 40 meq PO ONETIME ONE Stop: 06/11/20 13:47 Last Admin: 06/11/20 14:24 Dose: 40 meq Documented by: Potassium Chloride (Klor-Con M20) 40 meq PO ONETIME ONE Stop: 06/17/20 09:29 Last Admin: 06/17/20 10:02 Dose: 40 meq Documented by: Pregabalin (Lyrica) 75 mg PO TID [facility] Last Admin: 06/13/20 19:16 Dose: Not Given Documented by: Tramadol HCl (Ultram) 50 mg PO Q6H PRN PRN Reason: Pain - Exam Quality Assessment: Supplemental Oxygen General: Alert, Oriented Neck: Supple Lungs: Normal Respiratory Effort, Decreased Breath Sounds, Crackles Cardiovascular: Regular Rate, Regular Rhythm. No: Bradycardia, Tachycardia GI/Abdominal Exam: Normal Bowel Sounds, Soft, Non-Tender Sepsis Event Note - Evaluation Sepsis Screening Result: No Definite Risk - Focused Exam Vital Signs: Vital Signs Temp Pulse Resp BP Pulse Ox 06/17/20 11:16 77 24 H 131/59 L 93 L 06/17/20 10:16 77 26 H 114/53 L 92 L 06/17/20 09:16 75 25 H 110/62 93 L 06/17/20 08:00 35.8 C L 85 17 89 L 06/17/20 07:00 67 23 H 123/66 91 L 06/17/20 06:04 65 23 H 136/58 L 91 L 06/17/20 05:00 64 19 131/63 93 L 06/17/20 04:00 36.6 C 68 22 H 150/70 H 92 L 06/17/20 03:00 58 L 22 H 142/63 H 94 L 10/07/20 02:00 52 L 19 132/61 92 L 06/17/20 01:01 53 L 22 H 131/59 L 92 L - Problem List & Annotations (1) Hypoxia SNOMED Code(s): 285316454 Code(s): R09.02 - HYPOXEMIA Status: Acute Current Visit: Yes (2) Pneumonia due to COVID-19 virus SNOMED Code(s): 367091483320050275 Code(s): U07.1 - COVID-19; J12.89 - OTHER VIRAL PNEUMONIA Status: Acute Current Visit: Yes - Problem List Review Problem List Initiated/Reviewed/Updated: Yes - Plan Plan:: 64 yo female admitted for COVID pneumonia. cont on High flow for acute hypoxic respiratory failure, cont intermediate BiPAP, Fio2 requirement is improving. cont dexamethasone, Remdesivir and BID lovenox. cont Rocephin and Azithromycin for possible pneumonia, Lasix as need to keep her in negative balance cont scheduled DuoNebs s/p convalescent plasma, DM: SSI medium dose
[2020-06-17] MEDS: REMDESIVIR (EUA) 100 MG in Sodium Chloride 0.9% 100 ML IV SCH (14:14)
[2020-06-17] MEDS: Azithromycin 500 MG in Sodium Chloride 0.9% 250 ML IV SCH (15:45)
[2020-06-17] MEDS: cefTRIAXone 1 GM in Premix Bag 1 BAG IV SCH (16:47)
[2020-06-17] MEDS: Latanoprost 0.005% Ophth Soln 2.5 ML Bottle EYEBOTH SCH (20:37)
[2020-06-18] MEDS: Albuterol/Ipratropium 3.0-0.5 MG/3 ML Neb Soln NEB SCH ×6 (01:27→21:01)
[2020-06-18 06:22] LABS: BLOOD UREA NITROGEN,BUN 24 mg/dL (7.0-18.0); CARBON DIOXIDE,CO2 27.2 mmol/L (21.0-32.0); CHLORIDE,CL 103 mmol/L (98-107); GLUCOSE RANDOM 158 mg/dL (74-106); POTASSIUM,K 4.2 mmol/L (3.5-5.1); SODIUM,NA 140 mmol/L (136-145)
[2020-06-18] MEDS: Insulin Aspart 100 Units/ML 3 ML Pen SUBCUT SCH ×3 (07:43→17:46)
[2020-06-18] MEDS: Dorzolamide/Timolol 2%-0.5% Ophth Soln 10 ML Bottle EYEBOTH SCH (07:43)
--- NOTE | 2020-06-18 08:56 | PN ---
THC Physician - Brief Progress [id number]/08/2020 08:47[facility] Malini Gomez, [place] - WHIT (WALDEMAR) - WHIT KATIE FLANAGAN, Covid +Date of Service 06/18/2020 08:47HP I/Events of Note eICU progress [id number] female currently admitted to the ICU for hypoxic respi ratory failure secondary to COVID-19. Patient currently remains on 8 L nasal cannula and did intermi ttently require BiPAP overnight. No other acute issues noted in EMR.Patient seen on camera, currentl y on nasal cannula, sitting in chair next to bed and does not appear to be in acute distress.Vital si gns reviewed. SPO2 94%, HR 78Labs/EMR reviewedAcute hypoxic respiratory failure-No new recommendation s at this time-Continue to wean O2 as tolerated-Secondary to COVID-19 infection.-PPE and isolation pe r institution policy-Currenlty on CAP coverage; likely can stop on 06/19/20 after 7 days of therapy. - Continue with Decadron, Remdesevir and convalescent plasma to complete therapy.-Recommend self pronin g as tolerated-Recommend keeping patient euvolemic as much as possible. Lasix as needed.-Nebs as need ed-Continue with DVT and GI prophylaxisThank you for allowing us to participate in the care of your p atientInterventions Major-Hypoxemia - evaluation and management, Infection - evaluation and managemen t, Respiratory failure - evaluation and managementElectronically Signed by: DONA ABREU) on 08:56
[2020-06-18] MEDS: Pantoprazole 40 MG in Sodium Chloride 0.9% 10 ML IV SCH (09:22)
[2020-06-18] MEDS: Enoxaparin 40 MG/0.4 ML Syringe SUBCUT SCH ×2 (09:23→20:05)
[2020-06-18] MEDS: Dexamethasone 4 MG Tab PO SCH (09:23)
[2020-06-18] MEDS: Brimonidine 0.2% Ophth Soln 5 ML Bottle EYEBOTH SCH ×2 (09:27→20:06)
[2020-06-18] MEDS: REMDESIVIR (EUA) 100 MG in Sodium Chloride 0.9% 100 ML IV SCH (13:06)
--- NOTE | 2020-06-18 14:12 | PCM.PN ---
- General Info Date of Service: 06/18/20 - Review of Systems Systems Review Comment:: feeling better, reports shortness of breath. - Patient Data Vitals - Most Recent: Last Vital Signs Temp 36.4 C 06/18/20 09:16 Pulse 75 06/18/20 12:00 Resp 25 H 06/18/20 12:00 BP 139/67 06/18/20 12:00 Pulse Ox 90 L 06/18/20 12:00 Weight - Most Recent: 79.4 kg I&O - Last 24 Hours: Intake & Output 06/17/20 06/18/20 06/18/20 22:59 06:59 14:59 Intake Total 800 500 Output Total 450 Balance 800 50 Lab Results Last 24 Hours: Laboratory Results - last 24 hr 06/17/20 06/17/20 06/18/20 Range/Units 17:37 20:29 04:45 WBC 7.18 (4.0-11.0) K/uL RBC 5.11 (4.30-5.90) M/uL Hgb 14.8 (12.0-16.0) g/dL Hct 46.4 H (36.0-46.0) % MCV 90.8 (80.0-98.0) fL MCH 29.0 (27.0-32.0) pg MCHC 31.9 (31.0-37.0) g/dL RDW Std Deviation 48.7 (28.0-62.0) fl RDW Coeff of Alec 15 (11.0-15.0) % Plt Count 327 (150-400) K/uL MPV 9.90 (7.40-12.00) fL Neut % (Auto) 84.6 H (48.0-80.0) % Lymph % (Auto) 11.1 L (16.0-40.0) % Hunt % (Auto) 3.5 (0.0-15.0) % Eos % (Auto) 0.7 (0.0-7.0) % Baso % (Auto) 0.1 (0.0-1.5) % Neut # (Auto) 6.1 H (1.4-5.7) K/uL Lymph # (Auto) 0.8 (0.6-2.4) K/uL Hunt # (Auto) 0.3 (0.0-0.8) K/uL Eos # (Auto) 0.1 (0.0-0.7) K/uL Baso # (Auto) 0.0 (0.0-0.1) K/uL Nucleated RBC % 0.0 /100WBC Nucleated RBCs # 0 K/uL Sodium (136-145) mmol/L Potassium (3.5-5.1) mmol/L Chloride (98-107) mmol/L Carbon Dioxide (21.0-32.0) mmol/L BUN (7.0-18.0) mg/dL Creatinine (0.6-1.0) mg/dL Est Cr Clr Drug Dosing mL/min Estimated GFR (MDRD) ml/min Glucose (74-106) mg/dL POC Glucose 311 H 247 H (60-110) mg/dL Calcium (8.5-10.1) mg/dL Phosphorus (2.6-4.7) mg/dL Magnesium (1.8-2.4) mg/dL Total Bilirubin (0.2-1.0) mg/dL AST (15-37) IU/L ALT (14-63) IU/L Alkaline Phosphatase (46-116) U/L Total Protein (6.4-8.2) g/dL Albumin (3.4-5.0) g/dL Globulin (2.6-4.0) g/dL Albumin/Globulin Ratio (0.9-1.6) 06/18/20 06/18/20 06/18/20 Range/Units 04:45 06:52 11:48 WBC (4.0-11.0) K/uL RBC (4.30-5.90) M/uL Hgb (12.0-16.0) g/dL Hct (36.0-46.0) % MCV (80.0-98.0) fL MCH (27.0-32.0) pg MCHC (31.0-37.0) g/dL RDW Std Deviation (28.0-62.0) fl RDW Coeff of Alec (11.0-15.0) % Plt Count (150-400) K/uL MPV (7.40-12.00) fL Neut % (Auto) (48.0-80.0) % Lymph % (Auto) (16.0-40.0) % Hunt % (Auto) (0.0-15.0) % Eos % (Auto) (0.0-7.0) % Baso % (Auto) (0.0-1.5) % Neut # (Auto) (1.4-5.7) K/uL Lymph # (Auto) (0.6-2.4) K/uL Hunt # (Auto) (0.0-0.8) K/uL Eos # (Auto) (0.0-0.7) K/uL Baso # (Auto) (0.0-0.1) K/uL Nucleated RBC % /100WBC Nucleated RBCs # K/uL Sodium 140 (136-145) mmol/L Potassium 4.2 (3.5-5.1) mmol/L Chloride 103 (98-107) mmol/L Carbon Dioxide 27.2 (21.0-32.0) mmol/L BUN 24 H (7.0-18.0) mg/dL Creatinine 0.5 L (0.6-1.0) mg/dL Est Cr Clr Drug Dosing 103.63 mL/min Estimated GFR (MDRD) > 60.0 ml/min Glucose 158 H (74-106) mg/dL POC Glucose 159 H 216 H (60-110) mg/dL Calcium 8.8 (8.5-10.1) mg/dL Phosphorus 3.9 (2.6-4.7) mg/dL Magnesium 1.9 (1.8-2.4) mg/dL Total Bilirubin 0.6 (0.2-1.0) mg/dL AST 43 H (15-37) IU/L ALT 24 (14-63) IU/L Alkaline Phosphatase 68 (46-116) U/L Total Protein 6.6 (6.4-8.2) g/dL Albumin 2.7 L (3.4-5.0) g/dL Globulin 3.9 (2.6-4.0) g/dL Albumin/Globulin Ratio 0.7 L (0.9-1.6) Med Orders - Current: Current Medications Acetaminophen (Tylenol) 650 mg PO Q4H PRN PRN Reason: Pain (Mild 1-3)/fever Last Admin: 06/17/20 20:47 Dose: 650 mg Documented by: Albuterol/Ipratropium (Combivent Respimat) 0 gm INH Q4H PRN PRN Reason: Dyspnea Last Admin: 06/14/20 10:14 Dose: 1 puff Documented by: Albuterol/Ipratropium (Duoneb 3.0-0.5 Mg/3 Ml) 3 ml NEB Q4HRRT [facility] Last Admin: 06/18/20 09:51 Dose: 3 ml Documented by: Brimonidine Tartrate (Alphagan 0.2% Ophth Soln) 0 ml EYEBOTH BID [facility] Last Admin: 06/18/20 09:27 Dose: 1 drop Documented by: Dexamethasone (Dexamethasone) 6 mg PO DAILY [facility] Last Admin: 06/18/20 09:23 Dose: 6 mg Documented by: Dextrose/Water (Dextrose 50% In Water) 50 ml IVPUSH ONETIME PRN PRN Reason: HYPOGLYCEMIA Last Admin: 06/12/20 06:03 Dose: 50 ml Documented by: Enoxaparin Sodium (Lovenox) 40 mg SUBCUT Q12HR [facility] Last Admin: 06/18/20 09:23 Dose: 40 mg Documented by: Remdesivir 100 mg/ Sodium (Chloride) 100 mls @ 100 mls/hr IV Q24H [facility] Last Admin: 06/18/20 13:06 Dose: 100 mls/hr Documented by: Azithromycin 500 mg/ Sodium (Chloride) 250 mls @ 250 mls/hr IV Q24H [facility] Last Admin: 06/17/20 15:45 Dose: 250 mls/hr Documented by: Ceftriaxone Sodium/Dextrose 1 (gm/ Premix) 50 mls @ 100 mls/hr IV Q24H [facility] Last Admin: 06/17/20 16:47 Dose: 100 mls/hr Documented by: Pantoprazole Sodium 40 mg/ (Sodium Chloride) 10 mls @ 300 mls/hr IV DAILY [facility] Last Admin: 06/18/20 09:22 Dose: 300 mls/hr Documented by: Insulin Aspart (Novolog) 0 unit SUBCUT TIDAC [facility]; Protocol Last Admin: 06/18/20 12:24 Dose: 6 units Documented by: Latanoprost (Xalatan 0.005% Ophth Soln) 0 ml EYEBOTH BEDTIME [facility] Last Admin: 06/17/20 20:37 Dose: 1 drop Documented by: Morphine Sulfate (Morphine) 1 mg IVPUSH Q1H PRN PRN Reason: Pain Last Admin: 06/14/20 18:23 Dose: 1 mg Documented by: Dorzolamide/Timolol 2%-0.5% Ophth Soln 10 Ml Bottle 0 each EYEBOTH ACBREAKFAST [facility] Last Admin: 06/18/20 07:43 Dose: Not Given Documented by: Sodium Chloride (Saline Flush) 10 ml FLUSH ASDIRECTED PRN PRN Reason: Keep Vein Open Last Admin: 06/14/20 09:30 Dose: 10 ml Documented by: Sodium Chloride (Saline Flush) 2.5 ml FLUSH ASDIRECTED PRN PRN Reason: Keep Vein Open Last Admin: 06/11/20 23:24 Dose: 2.5 ml Documented by: Discontinued Medications Albuterol/Ipratropium (Duoneb 3.0-0.5 Mg/3 Ml) 3 ml NEB Q4HRRT PRN PRN Reason: Shortness of Breath Last Admin: 06/13/20 20:24 Dose: 3 ml Documented by: Azithromycin (Zithromax) 500 mg PO Q24H [facility] Last Admin: 06/11/20 14:54 Dose: 500 mg Documented by: Dexamethasone (Dexamethasone) 6 mg IVPUSH ONETIME ONE Stop: 06/11/20 10:29 Last Admin: 06/11/20 10:45 Dose: 6 mg Documented by: Dextrose/Water (Dextrose 50% In Water) Confirm Administered Dose 50 ml .ROUTE .STK-MED ONE Stop: 06/12/20 06:00 Last Admin: 06/12/20 06:10 Dose: 50 ml Documented by: Furosemide (Lasix) 20 mg IVPUSH NOW ONE Stop: 06/15/20 11:58 Last Admin: 06/15/20 12:30 Dose: 20 mg Documented by: Furosemide (Lasix) 20 mg IVPUSH ONETIME ONE Stop: 06/16/20 12:16 Last Admin: 06/16/20 13:19 Dose: 20 mg Documented by: Azithromycin 500 mg/ Sodium (Chloride) 250 mls @ 250 mls/hr IV ONETIME [facility] Ceftriaxone Sodium/Dextrose 1 (gm/ Premix) 50 mls @ 100 mls/hr IV ONETIME ONE Stop: 06/11/20 14:10 Last Admin: 06/11/20 15:35 Dose: Not Given Documented by: Ceftriaxone Sodium 1 gm/ (Sodium Chloride) 50 mls @ 100 mls/hr IV Q24H [facility] Last Admin: 06/11/20 14:53 Dose: 100 mls/hr Documented by: Remdesivir 200 mg/ Sodium (Chloride) 250 mls @ 250 mls/hr IV ONETIME ONE Stop: 06/11/20 13:45 Last Admin: 06/11/20 18:59 Dose: 250 mls/hr Documented by: Ceftriaxone Sodium/Dextrose (Rocephin In Dextrose,Iso-Osm 1 Gm/50 Ml) Confirm Administered Dose 50 mls @ as directed .ROUTE .STK-MED ONE Stop: 06/11/20 14:06 Last Admin: 06/11/20 14:38 Dose: Not Given Documented by: Insulin Aspart (Novolog) 0 unit SUBCUT TIDAC [facility]; Protocol Last Admin: 06/12/20 08:08 Dose: Not Given Documented by: Insulin Aspart (Novolog) 0 unit SUBCUT TIDAC [facility]; Protocol Last Admin: 06/16/20 07:52 Dose: Not Given Documented by: Iopamidol (Isovue Multipack-370 (76%)) 75 ml IVPUSH ONETIME STA Stop: 06/11/20 13:16 Last Admin: 06/11/20 13:15 Dose: 75 ml Documented by: Lorazepam (Ativan) 1 mg IVPUSH ONETIME ONE Stop: 06/13/20 12:30 Last Admin: 06/13/20 13:18 Dose: 1 mg Documented by: Lorazepam (Ativan) Confirm Administered Dose 2 mg .ROUTE .STK-MED ONE Stop: 06/13/20 13:15 Last Admin: 06/13/20 19:15 Dose: Not Given Documented by: Losartan Potassium (Cozaar) 100 mg PO DAILY [facility] Last Admin: 06/13/20 09:28 Dose: 100 mg Documented by: Potassium Chloride (Klor-Con M20) 40 meq PO ONETIME ONE Stop: 06/11/20 13:47 Last Admin: 06/11/20 14:24 Dose: 40 meq Documented by: Potassium Chloride (Klor-Con M20) 40 meq PO ONETIME ONE Stop: 06/17/20 09:29 Last Admin: 06/17/20 10:02 Dose: 40 meq Documented by: Pregabalin (Lyrica) 75 mg PO TID [facility] Last Admin: 06/13/20 19:16 Dose: Not Given Documented by: Tramadol HCl (Ultram) 50 mg PO Q6H PRN PRN Reason: Pain - Exam General: Alert, Oriented Neck: Supple Lungs: Clear to Auscultation, Normal Respiratory Effort Cardiovascular: Regular Rate, Regular Rhythm GI/Abdominal Exam: Normal Bowel Sounds, Soft, Non-Tender, No Distention Extremities: Non-Tender, No Pedal Edema Skin: Warm, Dry, Intact Neurological: No New Focal Deficit Sepsis Event Note - Evaluation Sepsis Screening Result: No Definite Risk - Focused Exam Vital Signs: Vital Signs Temp Pulse Resp BP Pulse Ox Pulse Ox 06/18/20 12:00 75 25 H 139/67 90 L 06/18/20 11:00 72 25 H 134/67 95 06/18/20 10:16 72 24 H 121/59 L 92 L 06/18/20 09:16 36.4 C 72 24 H 132/63 95 06/18/20 08:16 85 26 H 138/68 94 L 06/18/20 07:00 85 26 H 146/63 H 90 L 06/18/20 06:00 69 23 H 127/57 L 91 L 06/18/20 05:00 72 25 H 149/68 H 90 L 06/18/20 04:00 36.1 C 61 23 H 139/62 94 L 06/18/20 03:00 58 L 20 143/59 H 93 L 06/18/20 02:26 93 L - Problem List Review Problem List Initiated/Reviewed/Updated: Yes - My Orders Last 24 Hours: My Active Orders 06/19/20 05:11 CBC WITH AUTO DIFF [HEME] AM COMPREHENSIVE METABOLIC PN,CMP [CHEM] AM - Plan Plan:: 64 yo female admitted for COVID pneumonia with acute hypoxic respiratory failure acute hypoxic respiratory failure:continue on High flow, intermediate BiPAP, Fio2 requirement is improving. COVID: continue dexamethasone, Remdesivir and BID lovenox, s/p convalescent plasma cont Rocephin and Azithromycin for possible pneumonia Lasix as need to keep her in negative balance DM: SSI medium dose
[2020-06-18] MEDS: Azithromycin 500 MG in Sodium Chloride 0.9% 250 ML IV SCH (14:16)
[2020-06-18] MEDS: cefTRIAXone 1 GM in Premix Bag 1 BAG IV SCH (15:26)
[2020-06-18] MEDS: Sodium Chloride 0.9% 2.5 ML Syringe FLUSH PRN (20:05)
[2020-06-18] MEDS: Latanoprost 0.005% Ophth Soln 2.5 ML Bottle EYEBOTH SCH (20:07)
[2020-06-18] MEDS: Acetaminophen 325 MG Tab PO PRN (21:46)
[2020-06-19] MEDS: Albuterol/Ipratropium 3.0-0.5 MG/3 ML Neb Soln NEB SCH ×6 (02:40→21:16)
[2020-06-19] MEDS: Sodium Chloride 0.9% 2.5 ML Syringe FLUSH PRN ×2 (02:40→21:17)
[2020-06-19 06:57] LABS: BLOOD UREA NITROGEN,BUN 19 mg/dL (7.0-18.0); CARBON DIOXIDE,CO2 26.9 mmol/L (21.0-32.0); CHLORIDE,CL 101 mmol/L (98-107); GLUCOSE RANDOM 137 mg/dL (74-106); POTASSIUM,K 3.2 mmol/L (3.5-5.1); SODIUM,NA 138 mmol/L (136-145)
[2020-06-19] MEDS: Insulin Aspart 100 Units/ML 3 ML Pen SUBCUT SCH ×3 (07:13→17:30)
[2020-06-19] MEDS: Dorzolamide/Timolol 2%-0.5% Ophth Soln 10 ML Bottle EYEBOTH SCH (07:14)
[2020-06-19] MEDS: Pantoprazole 40 MG in Sodium Chloride 0.9% 10 ML IV SCH (08:01)
[2020-06-19] MEDS: Dexamethasone 4 MG Tab PO SCH (08:01)
[2020-06-19] MEDS: Enoxaparin 40 MG/0.4 ML Syringe SUBCUT SCH ×2 (08:01→21:16)
[2020-06-19] MEDS: Brimonidine 0.2% Ophth Soln 5 ML Bottle EYEBOTH SCH ×2 (08:02→21:16)
[2020-06-19] MEDS: Acetaminophen 325 MG Tab PO PRN ×2 (10:01→21:13)
--- NOTE | 2020-06-19 10:47 | PCM.PN ---
- General Info Date of Service: 06/19/20 - Review of Systems Systems Review Comment:: feeling better, short of breath with exertion. - Patient Data Vitals - Most Recent: Last Vital Signs Temp 36.3 C 06/19/20 08:00 Pulse 77 06/19/20 07:00 Resp 20 06/19/20 10:00 BP 130/60 06/19/20 10:00 Pulse Ox 95 06/19/20 10:00 Weight - Most Recent: 79.8 kg I&O - Last 24 Hours: Intake & Output 06/18/20 06/19/20 06/19/20 22:59 06:59 14:59 Intake Total 520 600 10 Output Total 650 600 Balance -130 0 10 Lab Results Last 24 Hours: Laboratory Results - last 24 hr 06/18/20 06/18/20 06/18/20 Range/Units 11:48 17:02 21:45 WBC (4.0-11.0) K/uL RBC (4.30-5.90) M/uL Hgb (12.0-16.0) g/dL Hct (36.0-46.0) % MCV (80.0-98.0) fL MCH (27.0-32.0) pg MCHC (31.0-37.0) g/dL RDW Std Deviation (28.0-62.0) fl RDW Coeff of Alec (11.0-15.0) % Plt Count (150-400) K/uL MPV (7.40-12.00) fL Neut % (Auto) (48.0-80.0) % Lymph % (Auto) (16.0-40.0) % [place] % (Auto) (0.0-15.0) % Eos % (Auto) (0.0-7.0) % Baso % (Auto) (0.0-1.5) % Neut # (Auto) (1.4-5.7) K/uL Lymph # (Auto) (0.6-2.4) K/uL [place] # (Auto) (0.0-0.8) K/uL Eos # (Auto) (0.0-0.7) K/uL Baso # (Auto) (0.0-0.1) K/uL Nucleated RBC % /100WBC Nucleated RBCs # K/uL Sodium (136-145) mmol/L Potassium (3.5-5.1) mmol/L Chloride (98-107) mmol/L Carbon Dioxide (21.0-32.0) mmol/L BUN (7.0-18.0) mg/dL Creatinine (0.6-1.0) mg/dL Est Cr Clr Drug Dosing mL/min Estimated GFR (MDRD) ml/min Glucose (74-106) mg/dL POC Glucose 216 H 245 H 225 H (60-110) mg/dL Calcium (8.5-10.1) mg/dL Total Bilirubin (0.2-1.0) mg/dL AST (15-37) IU/L ALT (14-63) IU/L Alkaline Phosphatase (46-116) U/L Total Protein (6.4-8.2) g/dL Albumin (3.4-5.0) g/dL Globulin (2.6-4.0) g/dL Albumin/Globulin Ratio (0.9-1.6) 06/19/20 06/19/20 06/19/20 Range/Units 06:20 06:20 06:23 WBC 8.61 (4.0-11.0) K/uL RBC 5.17 (4.30-5.90) M/uL Hgb 15.1 (12.0-16.0) g/dL Hct 46.1 H (36.0-46.0) % MCV 89.2 (80.0-98.0) fL MCH 29.2 (27.0-32.0) pg MCHC 32.8 (31.0-37.0) g/dL RDW Std Deviation 46.2 (28.0-62.0) fl RDW Coeff of Alec 14 (11.0-15.0) % Plt Count 296 (150-400) K/uL MPV 9.40 (7.40-12.00) fL Neut % (Auto) 82.3 H (48.0-80.0) % Lymph % (Auto) 11.3 L (16.0-40.0) % [place] % (Auto) 4.6 (0.0-15.0) % Eos % (Auto) 1.7 (0.0-7.0) % Baso % (Auto) 0.1 (0.0-1.5) % Neut # (Auto) 7.1 H (1.4-5.7) K/uL Lymph # (Auto) 1.0 (0.6-2.4) K/uL [place] # (Auto) 0.4 (0.0-0.8) K/uL Eos # (Auto) 0.2 (0.0-0.7) K/uL Baso # (Auto) 0.0 (0.0-0.1) K/uL Nucleated RBC % 0.0 /100WBC Nucleated RBCs # 0 K/uL Sodium 138 (136-145) mmol/L Potassium 3.2 L (3.5-5.1) mmol/L Chloride 101 (98-107) mmol/L Carbon Dioxide 26.9 (21.0-32.0) mmol/L BUN 19 H (7.0-18.0) mg/dL Creatinine 0.5 L (0.6-1.0) mg/dL Est Cr Clr Drug Dosing 103.63 mL/min Estimated GFR (MDRD) > 60.0 ml/min Glucose 137 H (74-106) mg/dL POC Glucose 142 H (60-110) mg/dL Calcium 8.5 (8.5-10.1) mg/dL Total Bilirubin 0.7 (0.2-1.0) mg/dL AST 32 (15-37) IU/L ALT 27 (14-63) IU/L Alkaline Phosphatase 76 (46-116) U/L Total Protein 6.6 (6.4-8.2) g/dL Albumin 2.7 L (3.4-5.0) g/dL Globulin 3.9 (2.6-4.0) g/dL Albumin/Globulin Ratio 0.7 L (0.9-1.6) Med Orders - Current: Current Medications Acetaminophen (Tylenol) 650 mg PO Q4H PRN PRN Reason: Pain (Mild 1-3)/fever Last Admin: 06/19/20 10:01 Dose: 650 mg Documented by: Albuterol/Ipratropium (Combivent Respimat) 0 gm INH Q4H PRN PRN Reason: Dyspnea Last Admin: 06/14/20 10:14 Dose: 1 puff Documented by: Albuterol/Ipratropium (Duoneb 3.0-0.5 Mg/3 Ml) 3 ml NEB Q4HRRT [facility] Last Admin: 06/19/20 09:58 Dose: 3 ml Documented by: Brimonidine Tartrate (Alphagan 0.2% Ophth Soln) 0 ml EYEBOTH BID [facility] Last Admin: 06/19/20 08:02 Dose: 1 drop Documented by: Dexamethasone (Dexamethasone) 6 mg PO DAILY [facility] Last Admin: 06/19/20 08:01 Dose: 6 mg Documented by: Dextrose/Water (Dextrose 50% In Water) 50 ml IVPUSH ONETIME PRN PRN Reason: HYPOGLYCEMIA Last Admin: 06/12/20 06:03 Dose: 50 ml Documented by: Enoxaparin Sodium (Lovenox) 40 mg SUBCUT Q12HR [facility] Last Admin: 06/19/20 08:01 Dose: 40 mg Documented by: Azithromycin 500 mg/ Sodium (Chloride) 250 mls @ 250 mls/hr IV Q24H [facility] Last Admin: 06/18/20 14:16 Dose: 250 mls/hr Documented by: Ceftriaxone Sodium/Dextrose 1 (gm/ Premix) 50 mls @ 100 mls/hr IV Q24H [facility] Last Admin: 06/18/20 15:26 Dose: 100 mls/hr Documented by: Pantoprazole Sodium 40 mg/ (Sodium Chloride) 10 mls @ 300 mls/hr IV DAILY [facility] Last Admin: 06/19/20 08:01 Dose: 300 mls/hr Documented by: Insulin Aspart (Novolog) 0 unit SUBCUT TIDAC [facility]; Protocol Last Admin: 06/19/20 07:13 Dose: Not Given Documented by: Latanoprost (Xalatan 0.005% Ophth Soln) 0 ml EYEBOTH BEDTIME [facility] Last Admin: 06/18/20 20:07 Dose: 2 drop Documented by: Morphine Sulfate (Morphine) 1 mg IVPUSH Q1H PRN PRN Reason: Pain Last Admin: 06/14/20 18:23 Dose: 1 mg Documented by: Dorzolamide/Timolol 2%-0.5% Ophth Soln 10 Ml Bottle 0 each EYEBOTH ACBREAKFAST [facility] Last Admin: 06/19/20 07:14 Dose: Not Given Documented by: Sodium Chloride (Saline Flush) 10 ml FLUSH ASDIRECTED PRN PRN Reason: Keep Vein Open Last Admin: 06/14/20 09:30 Dose: 10 ml Documented by: Sodium Chloride (Saline Flush) 2.5 ml FLUSH ASDIRECTED PRN PRN Reason: Keep Vein Open Last Admin: 06/19/20 02:40 Dose: 2.5 ml Documented by: Discontinued Medications Albuterol/Ipratropium (Duoneb 3.0-0.5 Mg/3 Ml) 3 ml NEB Q4HRRT PRN PRN Reason: Shortness of Breath Last Admin: 06/13/20 20:24 Dose: 3 ml Documented by: Azithromycin (Zithromax) 500 mg PO Q24H [facility] Last Admin: 06/11/20 14:54 Dose: 500 mg Documented by: Dexamethasone (Dexamethasone) 6 mg IVPUSH ONETIME ONE Stop: 06/11/20 10:29 Last Admin: 06/11/20 10:45 Dose: 6 mg Documented by: Dextrose/Water (Dextrose 50% In Water) Confirm Administered Dose 50 ml .ROUTE .STK-MED ONE Stop: 06/12/20 06:00 Last Admin: 06/12/20 06:10 Dose: 50 ml Documented by: Furosemide (Lasix) 20 mg IVPUSH NOW ONE Stop: 06/15/20 11:58 Last Admin: 06/15/20 12:30 Dose: 20 mg Documented by: Furosemide (Lasix) 20 mg IVPUSH ONETIME ONE Stop: 06/16/20 12:16 Last Admin: 06/16/20 13:19 Dose: 20 mg Documented by: Azithromycin 500 mg/ Sodium (Chloride) 250 mls @ 250 mls/hr IV ONETIME [facility] Ceftriaxone Sodium/Dextrose 1 (gm/ Premix) 50 mls @ 100 mls/hr IV ONETIME ONE Stop: 06/11/20 14:10 Last Admin: 06/11/20 15:35 Dose: Not Given Documented by: Ceftriaxone Sodium 1 gm/ (Sodium Chloride) 50 mls @ 100 mls/hr IV Q24H [facility] Last Admin: 06/11/20 14:53 Dose: 100 mls/hr Documented by: Remdesivir 100 mg/ Sodium (Chloride) 100 mls @ 100 mls/hr IV Q24H [facility] Last Admin: 06/18/20 13:06 Dose: 100 mls/hr Documented by: Remdesivir 200 mg/ Sodium (Chloride) 250 mls @ 250 mls/hr IV ONETIME ONE Stop: 06/11/20 13:45 Last Admin: 06/11/20 18:59 Dose: 250 mls/hr Documented by: Ceftriaxone Sodium/Dextrose (Rocephin In Dextrose,Iso-Osm 1 Gm/50 Ml) Confirm Administered Dose 50 mls @ as directed .ROUTE .STK-MED ONE Stop: 06/11/20 14:06 Last Admin: 06/11/20 14:38 Dose: Not Given Documented by: Insulin Aspart (Novolog) 0 unit SUBCUT TIDAC [facility]; Protocol Last Admin: 06/12/20 08:08 Dose: Not Given Documented by: Insulin Aspart (Novolog) 0 unit SUBCUT TIDAC [facility]; Protocol Last Admin: 06/16/20 07:52 Dose: Not Given Documented by: Iopamidol (Isovue Multipack-370 (76%)) 75 ml IVPUSH ONETIME STA Stop: 06/11/20 13:16 Last Admin: 06/11/20 13:15 Dose: 75 ml Documented by: Lorazepam (Ativan) 1 mg IVPUSH ONETIME ONE Stop: 06/13/20 12:30 Last Admin: 06/13/20 13:18 Dose: 1 mg Documented by: Lorazepam (Ativan) Confirm Administered Dose 2 mg .ROUTE .STK-MED ONE Stop: 06/13/20 13:15 Last Admin: 06/13/20 19:15 Dose: Not Given Documented by: Losartan Potassium (Cozaar) 100 mg PO DAILY [facility] Last Admin: 06/13/20 09:28 Dose: 100 mg Documented by: Potassium Chloride (Klor-Con M20) 40 meq PO ONETIME ONE Stop: 06/11/20 13:47 Last Admin: 06/11/20 14:24 Dose: 40 meq Documented by: Potassium Chloride (Klor-Con M20) 40 meq PO ONETIME ONE Stop: 06/17/20 09:29 Last Admin: 06/17/20 10:02 Dose: 40 meq Documented by: Pregabalin (Lyrica) 75 mg PO TID [facility] Last Admin: 06/13/20 19:16 Dose: Not Given Documented by: Tramadol HCl (Ultram) 50 mg PO Q6H PRN PRN Reason: Pain - Exam General: Alert, Oriented Neck: Supple Lungs: Normal Respiratory Effort, Rhonchi Cardiovascular: Regular Rate, Regular Rhythm GI/Abdominal Exam: Soft, Non-Tender Extremities: Non-Tender, No Pedal Edema Skin: Warm, Dry, Intact Neurological: No New Focal Deficit Sepsis Event Note - Evaluation Sepsis Screening Result: No Definite Risk - Focused Exam Vital Signs: Vital Signs Temp Pulse Resp BP Pulse Ox Pulse Ox 06/19/20 10:00 20 130/60 95 06/19/20 09:00 20 139/55 L 95 06/19/20 08:00 36.3 C 25 H 130/64 92 L 06/19/20 07:00 77 16 147/67 H 94 L 06/19/20 06:00 36.2 C 75 20 167/79 H 94 L 06/19/20 05:00 69 21 H 166/76 H 95 95 06/19/20 04:00 76 20 156/80 H 95 06/19/20 03:00 74 23 H 156/75 H 92 L 06/19/20 02:00 70 23 H 139/60 90 L 06/19/20 01:00 69 22 H 145/77 H 91 L 06/19/20 00:00 65 22 H 134/66 92 L 06/18/20 23:00 60 20 145/70 H 94 L - Problem List Review Problem List Initiated/Reviewed/Updated: Yes - Plan Plan:: 64 yo female admitted for COVID pneumonia with acute hypoxic respiratory failure acute hypoxic respiratory failure:continue on High flow 8 L NC, intermediate BiPAP, COVID: continue dexamethasone, BID lovenox, s/p convalescent plasma cont Rocephin and Azithromycin for possible pneumonia Lasix as need to keep her in negative balance DM: SSI medium dose
--- NOTE | 2020-06-19 10:52 | PN ---
THC Physician - Brief Progress [id number]/09/2020 10:50[facility] Malini Gomez, [place] - AMEN (WALDEMAR) - AMEN KATIE FLANAGAN, Covid +Date of Service 06/19/2020 10:50HP I/Events of Note eICU progress [id number] female currently admitted to the ICU for hypoxic respi ratory failure secondary to COVID-19Patient seen on camera, laying in bedVital signs reviewedLabs/EMR reviewedRecommendations:Acute hypoxic respiratory failureNo new recommendations at this time. Please see prior note regarding recommendations.Please do not hesitate to contact eICU for further question sDVT and GI prophylaxis as appropriateThank you for allowing us to participate in the care of your pa tientInterventions Major-Respiratory failure - evaluation and management
[2020-06-19] MEDS: Azithromycin 500 MG in Sodium Chloride 0.9% 250 ML IV SCH (14:00)
[2020-06-19] MEDS: cefTRIAXone 1 GM in Premix Bag 1 BAG IV SCH (15:00)
[2020-06-19] MEDS: Latanoprost 0.005% Ophth Soln 2.5 ML Bottle EYEBOTH SCH (21:16)
[2020-06-20] MEDS: Sodium Chloride 0.9% 2.5 ML Syringe FLUSH PRN ×3 (00:59→20:30)
[2020-06-20] MEDS: Albuterol/Ipratropium 3.0-0.5 MG/3 ML Neb Soln NEB SCH ×6 (02:32→22:58)
[2020-06-20 06:27] LABS: BLOOD UREA NITROGEN,BUN 16 mg/dL (7.0-18.0); CARBON DIOXIDE,CO2 28.5 mmol/L (21.0-32.0); CHLORIDE,CL 102 mmol/L (98-107); GLUCOSE RANDOM 145 mg/dL (74-106); POTASSIUM,K 3.4 mmol/L (3.5-5.1); SODIUM,NA 139 mmol/L (136-145)
[2020-06-20] MEDS: Dorzolamide/Timolol 2%-0.5% Ophth Soln 10 ML Bottle EYEBOTH SCH (08:39)
[2020-06-20] MEDS: Insulin Aspart 100 Units/ML 3 ML Pen SUBCUT SCH ×3 (08:39→18:56)
[2020-06-20] MEDS: Brimonidine 0.2% Ophth Soln 5 ML Bottle EYEBOTH SCH ×2 (08:40→20:28)
[2020-06-20] MEDS: Enoxaparin 40 MG/0.4 ML Syringe SUBCUT SCH ×2 (08:41→20:27)
[2020-06-20] MEDS: Dexamethasone 4 MG Tab PO SCH (08:41)
[2020-06-20] MEDS: Pantoprazole 40 MG in Sodium Chloride 0.9% 10 ML IV SCH (08:42)
[2020-06-20] MEDS ORDERED: Potassium Chloride 20 MEQ Tab.ER PO ONE (10:08)
--- NOTE | 2020-06-20 11:04 | PN ---
THC Physician - Brief Progress [id number]/10/2020 11:03[facility] [place] - MWN (WALDEMAR) - MWN KATIE FLANAGAN, Covid +Date of Service 06/20/2020 11:03HP I/Events of Note eICU progress [id number] female currently admitted to the ICU for hypoxic respi ratory failure secondary to COVID-19Patient seen on camera, laying in bedVital signs reviewedLabs/EMR reviewedRecommendations:Acute hypoxic respiratory failureNo new recommendations at this time. We stephany danielle continue to follow patient.Please do not hesitate to contact eICU for further questionsDVT and GI p rophylaxis as appropriateThank you for allowing us to participate in the care of your patientInterven tions Major-Respiratory failure - evaluation and management
[2020-06-20] MEDS: Azithromycin 500 MG in Sodium Chloride 0.9% 250 ML IV SCH (13:24)
[2020-06-20] MEDS: cefTRIAXone 1 GM in Premix Bag 1 BAG IV SCH (15:23)
--- NOTE | 2020-06-20 15:54 | PCM.PN ---
- General Info Date of Service: 06/20/20 - Review of Systems Systems Review Comment:: feeling better, still short of breath with exertion - Patient Data Vitals - Most Recent: Last Vital Signs Temp 36 C L 06/20/20 12:00 Pulse 79 06/20/20 07:00 Resp 20 06/20/20 14:00 BP 136/76 06/20/20 14:00 Pulse Ox 94 L 06/20/20 14:00 Weight - Most Recent: 77.8 kg I&O - Last 24 Hours: Intake & Output 06/20/20 06/20/20 06/20/20 06:59 14:59 22:59 Intake Total 420 260 Output Total 900 Balance -480 260 Lab Results Last 24 Hours: Laboratory Results - last 24 hr 06/19/20 06/19/20 06/20/20 Range/Units 17:28 21:13 05:20 WBC 9.49 (4.0-11.0) K/uL RBC 4.88 (4.30-5.90) M/uL Hgb 13.6 (12.0-16.0) g/dL Hct 43.7 (36.0-46.0) % MCV 89.5 (80.0-98.0) fL MCH 27.9 (27.0-32.0) pg MCHC 31.1 (31.0-37.0) g/dL RDW Std Deviation 46.1 (28.0-62.0) fl RDW Coeff of Alec 14 (11.0-15.0) % Plt Count 292 (150-400) K/uL MPV 9.70 (7.40-12.00) fL Neut % (Auto) 83.1 H (48.0-80.0) % Lymph % (Auto) 10.3 L (16.0-40.0) % [place] % (Auto) 5.1 (0.0-15.0) % Eos % (Auto) 1.4 (0.0-7.0) % Baso % (Auto) 0.1 (0.0-1.5) % Neut # (Auto) 7.9 H (1.4-5.7) K/uL Lymph # (Auto) 1.0 (0.6-2.4) K/uL [place] # (Auto) 0.5 (0.0-0.8) K/uL Eos # (Auto) 0.1 (0.0-0.7) K/uL Baso # (Auto) 0.0 (0.0-0.1) K/uL Nucleated RBC % 0.0 /100WBC Nucleated RBCs # 0 K/uL Sodium (136-145) mmol/L Potassium (3.5-5.1) mmol/L Chloride (98-107) mmol/L Carbon Dioxide (21.0-32.0) mmol/L BUN (7.0-18.0) mg/dL Creatinine (0.6-1.0) mg/dL Est Cr Clr Drug Dosing mL/min Estimated GFR (MDRD) ml/min Glucose (74-106) mg/dL POC Glucose 265 H 276 H (60-110) mg/dL Calcium (8.5-10.1) mg/dL 06/20/20 06/20/20 06/20/20 Range/Units 05:20 06:17 13:21 WBC (4.0-11.0) K/uL RBC (4.30-5.90) M/uL Hgb (12.0-16.0) g/dL Hct (36.0-46.0) % MCV (80.0-98.0) fL MCH (27.0-32.0) pg MCHC (31.0-37.0) g/dL RDW Std Deviation (28.0-62.0) fl RDW Coeff of Alec (11.0-15.0) % Plt Count (150-400) K/uL MPV (7.40-12.00) fL Neut % (Auto) (48.0-80.0) % Lymph % (Auto) (16.0-40.0) % [place] % (Auto) (0.0-15.0) % Eos % (Auto) (0.0-7.0) % Baso % (Auto) (0.0-1.5) % Neut # (Auto) (1.4-5.7) K/uL Lymph # (Auto) (0.6-2.4) K/uL [place] # (Auto) (0.0-0.8) K/uL Eos # (Auto) (0.0-0.7) K/uL Baso # (Auto) (0.0-0.1) K/uL Nucleated RBC % /100WBC Nucleated RBCs # K/uL Sodium 139 (136-145) mmol/L Potassium 3.4 L (3.5-5.1) mmol/L Chloride 102 (98-107) mmol/L Carbon Dioxide 28.5 (21.0-32.0) mmol/L BUN 16 (7.0-18.0) mg/dL Creatinine 0.6 (0.6-1.0) mg/dL Est Cr Clr Drug Dosing 86.36 mL/min Estimated GFR (MDRD) > 60.0 ml/min Glucose 145 H (74-106) mg/dL POC Glucose 164 H 277 H (60-110) mg/dL Calcium 8.3 L (8.5-10.1) mg/dL Med Orders - Current: Current Medications Acetaminophen (Tylenol) 650 mg PO Q4H PRN PRN Reason: Pain (Mild 1-3)/fever Last Admin: 06/19/20 21:13 Dose: 650 mg Documented by: Albuterol/Ipratropium (Combivent Respimat) 0 gm INH Q4H PRN PRN Reason: Dyspnea Last Admin: 06/14/20 10:14 Dose: 1 puff Documented by: Albuterol/Ipratropium (Duoneb 3.0-0.5 Mg/3 Ml) 3 ml NEB Q4HRRT [facility] Last Admin: 06/20/20 13:24 Dose: 3 ml Documented by: Brimonidine Tartrate (Alphagan 0.2% Ophth Soln) 0 ml EYEBOTH BID [facility] Last Admin: 06/20/20 08:40 Dose: 1 drop Documented by: Dexamethasone (Dexamethasone) 6 mg PO DAILY [facility] Last Admin: 06/20/20 08:41 Dose: 6 mg Documented by: Dextrose/Water (Dextrose 50% In Water) 50 ml IVPUSH ONETIME PRN PRN Reason: HYPOGLYCEMIA Last Admin: 06/12/20 06:03 Dose: 50 ml Documented by: Enoxaparin Sodium (Lovenox) 40 mg SUBCUT Q12HR [facility] Last Admin: 06/20/20 08:41 Dose: 40 mg Documented by: Azithromycin 500 mg/ Sodium (Chloride) 250 mls @ 250 mls/hr IV Q24H [facility] Last Admin: 06/20/20 13:24 Dose: 250 mls/hr Documented by: Ceftriaxone Sodium/Dextrose 1 (gm/ Premix) 50 mls @ 100 mls/hr IV Q24H [facility] Last Admin: 06/20/20 15:23 Dose: 100 mls/hr Documented by: Pantoprazole Sodium 40 mg/ (Sodium Chloride) 10 mls @ 300 mls/hr IV DAILY [facility] Last Admin: 06/20/20 08:42 Dose: 300 mls/hr Documented by: Insulin Aspart (Novolog) 0 unit SUBCUT TIDAC [facility]; Protocol Last Admin: 06/20/20 13:23 Dose: 9 units Documented by: Latanoprost (Xalatan 0.005% Ophth Soln) 0 ml EYEBOTH BEDTIME [facility] Last Admin: 06/19/20 21:16 Dose: 2 drop Documented by: Morphine Sulfate (Morphine) 1 mg IVPUSH Q1H PRN PRN Reason: Pain Last Admin: 06/14/20 18:23 Dose: 1 mg Documented by: Dorzolamide/Timolol 2%-0.5% Ophth Soln 10 Ml Bottle 0 each EYEBOTH ACBREAKFAST [facility] Last Admin: 06/20/20 08:39 Dose: Not Given Documented by: Sodium Chloride (Saline Flush) 10 ml FLUSH ASDIRECTED PRN PRN Reason: Keep Vein Open Last Admin: 06/14/20 09:30 Dose: 10 ml Documented by: Sodium Chloride (Saline Flush) 2.5 ml FLUSH ASDIRECTED PRN PRN Reason: Keep Vein Open Last Admin: 06/20/20 04:59 Dose: 2.5 ml Documented by: Discontinued Medications Albuterol/Ipratropium (Duoneb 3.0-0.5 Mg/3 Ml) 3 ml NEB Q4HRRT PRN PRN Reason: Shortness of Breath Last Admin: 06/13/20 20:24 Dose: 3 ml Documented by: Azithromycin (Zithromax) 500 mg PO Q24H [facility] Last Admin: 06/11/20 14:54 Dose: 500 mg Documented by: Dexamethasone (Dexamethasone) 6 mg IVPUSH ONETIME ONE Stop: 06/11/20 10:29 Last Admin: 06/11/20 10:45 Dose: 6 mg Documented by: Dextrose/Water (Dextrose 50% In Water) Confirm Administered Dose 50 ml .ROUTE .STK-MED ONE Stop: 06/12/20 06:00 Last Admin: 06/12/20 06:10 Dose: 50 ml Documented by: Furosemide (Lasix) 20 mg IVPUSH NOW ONE Stop: 06/15/20 11:58 Last Admin: 06/15/20 12:30 Dose: 20 mg Documented by: Furosemide (Lasix) 20 mg IVPUSH ONETIME ONE Stop: 06/16/20 12:16 Last Admin: 06/16/20 13:19 Dose: 20 mg Documented by: Azithromycin 500 mg/ Sodium (Chloride) 250 mls @ 250 mls/hr IV ONETIME YANIQUE Ceftriaxone Sodium/Dextrose 1 (gm/ Premix) 50 mls @ 100 mls/hr IV ONETIME ONE Stop: 06/11/20 14:10 Last Admin: 06/11/20 15:35 Dose: Not Given Documented by: Ceftriaxone Sodium 1 gm/ (Sodium Chloride) 50 mls @ 100 mls/hr IV Q24H [facility] Last Admin: 06/11/20 14:53 Dose: 100 mls/hr Documented by: Remdesivir 100 mg/ Sodium (Chloride) 100 mls @ 100 mls/hr IV Q24H [facility] Last Admin: 06/18/20 13:06 Dose: 100 mls/hr Documented by: Remdesivir 200 mg/ Sodium (Chloride) 250 mls @ 250 mls/hr IV ONETIME ONE Stop: 06/11/20 13:45 Last Admin: 06/11/20 18:59 Dose: 250 mls/hr Documented by: Ceftriaxone Sodium/Dextrose (Rocephin In Dextrose,Iso-Osm 1 Gm/50 Ml) Confirm Administered Dose 50 mls @ as directed .ROUTE .STK-MED ONE Stop: 06/11/20 14:06 Last Admin: 06/11/20 14:38 Dose: Not Given Documented by: Insulin Aspart (Novolog) 0 unit SUBCUT TIDAC [facility]; Protocol Last Admin: 06/12/20 08:08 Dose: Not Given Documented by: Insulin Aspart (Novolog) 0 unit SUBCUT TIDAC [facility]; Protocol Last Admin: 06/16/20 07:52 Dose: Not Given Documented by: Iopamidol (Isovue Multipack-370 (76%)) 75 ml IVPUSH ONETIME STA Stop: 06/11/20 13:16 Last Admin: 06/11/20 13:15 Dose: 75 ml Documented by: Lorazepam (Ativan) 1 mg IVPUSH ONETIME ONE Stop: 06/13/20 12:30 Last Admin: 06/13/20 13:18 Dose: 1 mg Documented by: Lorazepam (Ativan) Confirm Administered Dose 2 mg .ROUTE .STK-MED ONE Stop: 06/13/20 13:15 Last Admin: 06/13/20 19:15 Dose: Not Given Documented by: Losartan Potassium (Cozaar) 100 mg PO DAILY [facility] Last Admin: 06/13/20 09:28 Dose: 100 mg Documented by: Potassium Chloride (Klor-Con M20) 40 meq PO ONETIME ONE Stop: 06/11/20 13:47 Last Admin: 06/11/20 14:24 Dose: 40 meq Documented by: Potassium Chloride (Klor-Con M20) 40 meq PO ONETIME ONE Stop: 06/17/20 09:29 Last Admin: 06/17/20 10:02 Dose: 40 meq Documented by: Potassium Chloride (Klor-Con M20) 40 meq PO ONETIME ONE Stop: 06/20/20 10:09 Last Admin: 06/20/20 10:59 Dose: 40 meq Documented by: Pregabalin (Lyrica) 75 mg PO TID [facility] Last Admin: 06/13/20 19:16 Dose: Not Given Documented by: Tramadol HCl (Ultram) 50 mg PO Q6H PRN PRN Reason: Pain - Exam General: Alert, Oriented Neck: Supple Lungs: Clear to Auscultation, Normal Respiratory Effort Cardiovascular: Regular Rate, Regular Rhythm GI/Abdominal Exam: Normal Bowel Sounds, Soft, Non-Tender Extremities: Non-Tender, No Pedal Edema Skin: Warm, Dry, Intact Neurological: No New Focal Deficit Sepsis Event Note - Evaluation Sepsis Screening Result: No Definite Risk - Focused Exam Vital Signs: Vital Signs Temp Pulse Resp BP Pulse Ox Pulse Ox 06/20/20 14:00 20 136/76 94 L 06/20/20 13:00 23 H 136/76 92 L 06/20/20 12:00 36 C L 22 H 127/70 88 L 06/20/20 11:00 20 130/72 91 L 06/20/20 10:00 18 109/49 L 94 L 06/20/20 09:00 22 H 115/55 L 92 L 94 L 06/20/20 08:00 36.3 C 25 H 130/62 92 L 06/20/20 07:00 79 23 H 125/53 L 93 L 06/20/20 06:00 36.7 C 79 24 H 135/71 92 L 06/20/20 05:00 59 L 19 124/56 L 92 L 06/20/20 04:00 74 19 124/53 L 92 L - Problem List Review Problem List Initiated/Reviewed/Updated: Yes - My Orders Last 24 Hours: My Active Orders 06/21/20 05:11 BASIC METABOLIC PANEL,BMP [CHEM] AM CBC WITH AUTO DIFF [HEME] AM 06/22/20 05:11 BASIC METABOLIC PANEL,BMP [CHEM] AM CBC WITH AUTO DIFF [HEME] AM - Plan Plan:: 64 yo female admitted for COVID pneumonia with acute hypoxic respiratory failure acute hypoxic respiratory failure:continue on High flow 8 L NC, BiPAP at night, wean as tolerated COVID: continue dexamethasone, BID lovenox, s/p convalescent plasma and remdesivir cont Rocephin and Azithromycin for possible pneumonia Lasix as need to keep her in negative balance DM: SSI medium dose
[2020-06-20] MEDS: Acetaminophen 325 MG Tab PO PRN ×2 (16:05→20:26)
[2020-06-20] MEDS: Latanoprost 0.005% Ophth Soln 2.5 ML Bottle EYEBOTH SCH (20:28)
[2020-06-21] MEDS: Sodium Chloride 0.9% 2.5 ML Syringe FLUSH PRN ×2 (00:59→20:58)
[2020-06-21] MEDS: Albuterol/Ipratropium 3.0-0.5 MG/3 ML Neb Soln NEB SCH ×6 (02:56→21:19)
[2020-06-21 06:47] LABS: BLOOD UREA NITROGEN,BUN 14 mg/dL (7.0-18.0); CARBON DIOXIDE,CO2 27.3 mmol/L (21.0-32.0); CHLORIDE,CL 103 mmol/L (98-107); GLUCOSE RANDOM 199 mg/dL (74-106); POTASSIUM,K 3.6 mmol/L (3.5-5.1); SODIUM,NA 138 mmol/L (136-145)
[2020-06-21] MEDS: Insulin Aspart 100 Units/ML 3 ML Pen SUBCUT SCH ×3 (08:17→17:10)
[2020-06-21] MEDS: Dexamethasone 4 MG Tab PO SCH (08:18)
[2020-06-21] MEDS: Enoxaparin 40 MG/0.4 ML Syringe SUBCUT SCH ×2 (08:18→21:19)
[2020-06-21] MEDS: Pantoprazole 40 MG in Sodium Chloride 0.9% 10 ML IV SCH (08:18)
[2020-06-21] MEDS: Brimonidine 0.2% Ophth Soln 5 ML Bottle EYEBOTH SCH ×2 (08:28→21:19)
[2020-06-21] MEDS: Dorzolamide/Timolol 2%-0.5% Ophth Soln 10 ML Bottle EYEBOTH SCH (08:29)
--- NOTE | 2020-06-21 08:33 | PN ---
[facility] Physician - Brief Progress [id number]/11/2020 08:32[facility] Malini Gomez, [place] - WHIT (WALDE[place]) - AMEN KATIE FLANAGAN, Covid +Date of Service 06/21/2020 08:32HP I/Events of Note eICU progress [id number] female currently admitted to the ICU for hypoxic respi ratory failure secondary to COVID-19Patient seen on camera, sitting up in chairVital signs reviewedLa bs/EMR reviewedRecommendations:Acute hypoxic respiratory failure attributed to COVID pneumoniaSuggest procalcitonin to assist in antibiotic de-escalationWe will continue to follow patient.Please do not hesitate to contact eICU for further questionsDVT and GI prophylaxis as appropriateThank you for allo wing us to participate in the care of your patientInterventions Major-Respiratory failure - evaluatio n and management
[2020-06-21] MEDS: Acetaminophen 325 MG Tab PO PRN ×2 (08:55→19:45)
--- NOTE | 2020-06-21 12:13 | PCM.PN ---
- General Info Date of Service: 06/21/20 - Review of Systems Systems Review Comment:: breathing continues to improve - Patient Data Vitals - Most Recent: Last Vital Signs Temp 36.2 C 06/21/20 12:00 Pulse 84 06/21/20 07:00 Resp 14 06/21/20 12:00 BP 142/73 H 06/21/20 12:00 Pulse Ox 94 L 06/21/20 12:00 Weight - Most Recent: 78.6 kg I&O - Last 24 Hours: Intake & Output 06/20/20 06/21/20 06/21/20 22:59 06:59 14:59 Intake Total 920 700 10 Output Total 1000 950 Balance -80 -250 10 Lab Results Last 24 Hours: Laboratory Results - last 24 hr 06/20/20 06/20/20 06/20/20 Range/Units 13:21 18:54 22:57 WBC (4.0-11.0) K/uL RBC (4.30-5.90) M/uL Hgb (12.0-16.0) g/dL Hct (36.0-46.0) % MCV (80.0-98.0) fL MCH (27.0-32.0) pg MCHC (31.0-37.0) g/dL RDW Std Deviation (28.0-62.0) fl RDW Coeff of Alec (11.0-15.0) % Plt Count (150-400) K/uL MPV (7.40-12.00) fL Neut % (Auto) (48.0-80.0) % Lymph % (Auto) (16.0-40.0) % [place] % (Auto) (0.0-15.0) % Eos % (Auto) (0.0-7.0) % Baso % (Auto) (0.0-1.5) % Neut # (Auto) (1.4-5.7) K/uL Lymph # (Auto) (0.6-2.4) K/uL [place] # (Auto) (0.0-0.8) K/uL Eos # (Auto) (0.0-0.7) K/uL Baso # (Auto) (0.0-0.1) K/uL Nucleated RBC % /100WBC Nucleated RBCs # K/uL Sodium (136-145) mmol/L Potassium (3.5-5.1) mmol/L Chloride (98-107) mmol/L Carbon Dioxide (21.0-32.0) mmol/L BUN (7.0-18.0) mg/dL Creatinine (0.6-1.0) mg/dL Est Cr Clr Drug Dosing mL/min Estimated GFR (MDRD) ml/min Glucose (74-106) mg/dL POC Glucose 277 H 296 H 298 H (60-110) mg/dL Calcium (8.5-10.1) mg/dL 06/21/20 06/21/20 06/21/20 Range/Units 06:05 06:05 06:16 WBC 8.05 (4.0-11.0) K/uL RBC 4.77 (4.30-5.90) M/uL Hgb 13.8 (12.0-16.0) g/dL Hct 42.9 (36.0-46.0) % MCV 89.9 (80.0-98.0) fL MCH 28.9 (27.0-32.0) pg MCHC 32.2 (31.0-37.0) g/dL RDW Std Deviation 46.2 (28.0-62.0) fl RDW Coeff of Alec 14 (11.0-15.0) % Plt Count 255 (150-400) K/uL MPV 9.80 (7.40-12.00) fL Neut % (Auto) 81.2 H (48.0-80.0) % Lymph % (Auto) 11.2 L (16.0-40.0) % [place] % (Auto) 6.1 (0.0-15.0) % Eos % (Auto) 1.4 (0.0-7.0) % Baso % (Auto) 0.1 (0.0-1.5) % Neut # (Auto) 6.5 H (1.4-5.7) K/uL Lymph # (Auto) 0.9 (0.6-2.4) K/uL [place] # (Auto) 0.5 (0.0-0.8) K/uL Eos # (Auto) 0.1 (0.0-0.7) K/uL Baso # (Auto) 0.0 (0.0-0.1) K/uL Nucleated RBC % 0.0 /100WBC Nucleated RBCs # 0 K/uL Sodium 138 (136-145) mmol/L Potassium 3.6 (3.5-5.1) mmol/L Chloride 103 (98-107) mmol/L Carbon Dioxide 27.3 (21.0-32.0) mmol/L BUN 14 (7.0-18.0) mg/dL Creatinine 0.6 (0.6-1.0) mg/dL Est Cr Clr Drug Dosing 86.36 mL/min Estimated GFR (MDRD) > 60.0 ml/min Glucose 199 H (74-106) mg/dL POC Glucose 200 H (60-110) mg/dL Calcium 8.7 (8.5-10.1) mg/dL Med Orders - Current: Current Medications Acetaminophen (Tylenol) 650 mg PO Q4H PRN PRN Reason: Pain (Mild 1-3)/fever Last Admin: 06/21/20 08:55 Dose: 650 mg Documented by: Albuterol/Ipratropium (Combivent Respimat) 0 gm INH Q4H PRN PRN Reason: Dyspnea Last Admin: 06/14/20 10:14 Dose: 1 puff Documented by: Albuterol/Ipratropium (Duoneb 3.0-0.5 Mg/3 Ml) 3 ml NEB Q4HRRT [facility] Last Admin: 06/21/20 06:21 Dose: 3 ml Documented by: Brimonidine Tartrate (Alphagan 0.2% Ophth Soln) 0 ml EYEBOTH BID [facility] Last Admin: 06/21/20 08:28 Dose: 1 drop Documented by: Dexamethasone (Dexamethasone) 6 mg PO DAILY [facility] Last Admin: 06/21/20 08:18 Dose: 6 mg Documented by: Dextrose/Water (Dextrose 50% In Water) 50 ml IVPUSH ONETIME PRN PRN Reason: HYPOGLYCEMIA Last Admin: 06/12/20 06:03 Dose: 50 ml Documented by: Enoxaparin Sodium (Lovenox) 40 mg SUBCUT Q12HR [facility] Last Admin: 06/21/20 08:18 Dose: 40 mg Documented by: Azithromycin 500 mg/ Sodium (Chloride) 250 mls @ 250 mls/hr IV Q24H [facility] Last Admin: 06/20/20 13:24 Dose: 250 mls/hr Documented by: Ceftriaxone Sodium/Dextrose 1 (gm/ Premix) 50 mls @ 100 mls/hr IV Q24H [facility] Last Admin: 06/20/20 15:23 Dose: 100 mls/hr Documented by: Pantoprazole Sodium 40 mg/ (Sodium Chloride) 10 mls @ 300 mls/hr IV DAILY [facility] Last Admin: 06/21/20 08:18 Dose: 300 mls/hr Documented by: Insulin Aspart (Novolog) 0 unit SUBCUT TIDAC [facility]; Protocol Last Admin: 06/21/20 08:17 Dose: 6 units Documented by: Latanoprost (Xalatan 0.005% Ophth Soln) 0 ml EYEBOTH BEDTIME [facility] Last Admin: 06/20/20 20:28 Dose: 2 drop Documented by: Morphine Sulfate (Morphine) 1 mg IVPUSH Q1H PRN PRN Reason: Pain Last Admin: 06/14/20 18:23 Dose: 1 mg Documented by: Dorzolamide/Timolol 2%-0.5% Ophth Soln 10 Ml Bottle 0 each EYEBOTH ACBREAKFAST [facility] Last Admin: 06/21/20 08:29 Dose: Not Given Documented by: Sodium Chloride (Saline Flush) 10 ml FLUSH ASDIRECTED PRN PRN Reason: Keep Vein Open Last Admin: 06/14/20 09:30 Dose: 10 ml Documented by: Sodium Chloride (Saline Flush) 2.5 ml FLUSH ASDIRECTED PRN PRN Reason: Keep Vein Open Last Admin: 06/21/20 00:59 Dose: 2.5 ml Documented by: Discontinued Medications Albuterol/Ipratropium (Duoneb 3.0-0.5 Mg/3 Ml) 3 ml NEB Q4HRRT PRN PRN Reason: Shortness of Breath Last Admin: 06/13/20 20:24 Dose: 3 ml Documented by: Azithromycin (Zithromax) 500 mg PO Q24H [facility] Last Admin: 06/11/20 14:54 Dose: 500 mg Documented by: Dexamethasone (Dexamethasone) 6 mg IVPUSH ONETIME ONE Stop: 06/11/20 10:29 Last Admin: 06/11/20 10:45 Dose: 6 mg Documented by: Dextrose/Water (Dextrose 50% In Water) Confirm Administered Dose 50 ml .ROUTE . STK-MED ONE Stop: 06/12/20 06:00 Last Admin: 06/12/20 06:10 Dose: 50 ml Documented by: Furosemide (Lasix) 20 mg IVPUSH NOW ONE Stop: 06/15/20 11:58 Last Admin: 06/15/20 12:30 Dose: 20 mg Documented by: Furosemide (Lasix) 20 mg IVPUSH ONETIME ONE Stop: 06/16/20 12:16 Last Admin: 06/16/20 13:19 Dose: 20 mg Documented by: Azithromycin 500 mg/ Sodium (Chloride) 250 mls @ 250 mls/hr IV ONETIME [facility] Ceftriaxone Sodium/Dextrose 1 (gm/ Premix) 50 mls @ 100 mls/hr IV ONETIME ONE Stop: 06/11/20 14:10 Last Admin: 06/11/20 15:35 Dose: Not Given Documented by: Ceftriaxone Sodium 1 gm/ (Sodium Chloride) 50 mls @ 100 mls/hr IV Q24H [facility] Last Admin: 06/11/20 14:53 Dose: 100 mls/hr Documented by: Remdesivir 100 mg/ Sodium (Chloride) 100 mls @ 100 mls/hr IV Q24H [facility] Last Admin: 06/18/20 13:06 Dose: 100 mls/hr Documented by: Remdesivir 200 mg/ Sodium (Chloride) 250 mls @ 250 mls/hr IV ONETIME ONE Stop: 06/11/20 13:45 Last Admin: 06/11/20 18:59 Dose: 250 mls/hr Documented by: Ceftriaxone Sodium/Dextrose (Rocephin In Dextrose,Iso-Osm 1 Gm/50 Ml) Confirm Administered Dose 50 mls @ as directed .ROUTE .STK-MED ONE Stop: 06/11/20 14:06 Last Admin: 06/11/20 14:38 Dose: Not Given Documented by: Insulin Aspart (Novolog) 0 unit SUBCUT TIDAC [facility]; Protocol Last Admin: 06/12/20 08:08 Dose: Not Given Documented by: Insulin Aspart (Novolog) 0 unit SUBCUT TIDAC [facility]; Protocol Last Admin: 06/16/20 07:52 Dose: Not Given Documented by: Iopamidol (Isovue Multipack-370 (76%)) 75 ml IVPUSH ONETIME STA Stop: 06/11/20 13:16 Last Admin: 06/11/20 13:15 Dose: 75 ml Documented by: Lorazepam (Ativan) 1 mg IVPUSH ONETIME ONE Stop: 06/13/20 12:30 Last Admin: 06/13/20 13:18 Dose: 1 mg Documented by: Lorazepam (Ativan) Confirm Administered Dose 2 mg .ROUTE .STK-MED ONE Stop: 06/13/20 13:15 Last Admin: 06/13/20 19:15 Dose: Not Given Documented by: Losartan Potassium (Cozaar) 100 mg PO DAILY [facility] Last Admin: 06/13/20 09:28 Dose: 100 mg Documented by: Potassium Chloride (Klor-Con M20) 40 meq PO ONETIME ONE Stop: 06/11/20 13:47 Last Admin: 06/11/20 14:24 Dose: 40 meq Documented by: Potassium Chloride (Klor-Con M20) 40 meq PO ONETIME ONE Stop: 06/17/20 09:29 Last Admin: 06/17/20 10:02 Dose: 40 meq Documented by: Potassium Chloride (Klor-Con M20) 40 meq PO ONETIME ONE Stop: 06/20/20 10:09 Last Admin: 06/20/20 10:59 Dose: 40 meq Documented by: Pregabalin (Lyrica) 75 mg PO TID [facility] Last Admin: 06/13/20 19:16 Dose: Not Given Documented by: Tramadol HCl (Ultram) 50 mg PO Q6H PRN PRN Reason: Pain - Exam General: Alert, Oriented Neck: Supple Lungs: Clear to Auscultation, Normal Respiratory Effort Cardiovascular: Regular Rate, Regular Rhythm GI/Abdominal Exam: Soft, Non-Tender, No Distention Extremities: Non-Tender, No Pedal Edema Skin: Warm, Dry, Intact Neurological: No New Focal Deficit Sepsis Event Note - Evaluation Sepsis Screening Result: No Definite Risk - Focused Exam Vital Signs: Vital Signs Temp Pulse Resp BP Pulse Ox Pulse Ox 06/21/20 12:00 36.2 C 14 142/73 H 94 L 06/21/20 11:00 17 141/69 H 93 L 06/21/20 10:00 20 121/61 93 L 06/21/20 09:45 95 06/21/20 09:00 20 124/64 95 95 06/21/20 08:00 36.3 C 22 H 126/59 L 94 L 06/21/20 07:00 84 16 123/59 L 94 L 06/21/20 06:00 88 20 126/63 92 L 06/21/20 05:00 72 17 118/53 L 94 L 06/21/20 04:00 75 19 120/55 L 95 06/21/20 03:00 36.2 C 72 19 136/62 93 L 06/21/20 02:00 78 18 129/63 93 L 06/21/20 01:00 67 20 130/59 L 96 - Problem List Review Problem List Initiated/Reviewed/Updated: Yes - My Orders Last 24 Hours: My Active Orders 06/21/20 11:03 Transfer Patient (Change bed) [ADT] Routine 06/22/20 05:11 BASIC METABOLIC PANEL,BMP [CHEM] AM CBC WITH AUTO DIFF [HEME] AM - Plan Plan:: 64 yo female admitted for COVID pneumonia with acute hypoxic respiratory failure acute hypoxic respiratory failure:continue on 4 L NC, BiPAP at night, wean as tolerated COVID: continue dexamethasone, BID lovenox, s/p convalescent plasma and remdesivir cont Rocephin and Azithromycin for possible pneumonia Lasix as need to keep her in negative balance DM: SSI medium dose
[2020-06-21] MEDS: Azithromycin 500 MG in Sodium Chloride 0.9% 250 ML IV SCH (13:54)
[2020-06-21] MEDS: cefTRIAXone 1 GM in Premix Bag 1 BAG IV SCH (15:26)
[2020-06-21] MEDS: Latanoprost 0.005% Ophth Soln 2.5 ML Bottle EYEBOTH SCH (21:19)
[2020-06-22] MEDS: Albuterol/Ipratropium 3.0-0.5 MG/3 ML Neb Soln NEB SCH ×3 (02:51→09:06)
[2020-06-22 03:02] VITALS: PULSE 79
[2020-06-22 06:21] LABS: BLOOD UREA NITROGEN,BUN 15 mg/dL (7.0-18.0); CARBON DIOXIDE,CO2 26.1 mmol/L (21.0-32.0); CHLORIDE,CL 101 mmol/L (98-107); GLUCOSE RANDOM 206 mg/dL (74-106); POTASSIUM,K 3.7 mmol/L (3.5-5.1); SODIUM,NA 136 mmol/L (136-145)
[2020-06-22] MEDS: Insulin Aspart 100 Units/ML 3 ML Pen SUBCUT SCH ×2 (09:00→11:51)
[2020-06-22] MEDS: Dexamethasone 4 MG Tab PO SCH (09:01)
[2020-06-22] MEDS: Enoxaparin 40 MG/0.4 ML Syringe SUBCUT SCH (09:02)
[2020-06-22] MEDS: Pantoprazole 40 MG in Sodium Chloride 0.9% 10 ML IV SCH (09:02)
[2020-06-22] MEDS: Brimonidine 0.2% Ophth Soln 5 ML Bottle EYEBOTH SCH (09:02)
[2020-06-22] MEDS: Dorzolamide/Timolol 2%-0.5% Ophth Soln 10 ML Bottle EYEBOTH SCH (09:03)
[2020-06-22] MEDS ORDERED: FLU VAC QV 2020(18YR UP)RCM/PF 180 MCG/0.5 ML SYRINGE IM ONE (11:51)
[2020-06-22] MEDS ORDERED: FLU VACC QS2020-21(6MOS UP)/PF 60 MCG/0.5 ML SYRINGE IM ONE (11:52)
--- NOTE | 2020-06-22 12:08 | PCM.DCSUM1 ---
Discharge Summary - Discharge Data Discharge Date: 06/22/20 Discharge Disposition: Home, W Home Health Agency 06 Condition: Stable - Referral to Home Health Date of Face to Face Encounter: 06/22/20 Reason for Homebound Status: shortness of breath with exertion with recent hospitalization for COVID pneumonia making it difficulty to leave house without assistance Primary Care Physician: PCP None Skilled Need: home O2 monitoring and medication adjustment - Patient Summary/Data Hospital Course: 64 yo female with pmh of DM and HTN who presented to the ED with two day of short of breath, fevers, productive cough and nausea. In the ED she was sating mid 80s on RA requiring supplemental oxygen to keep sats above 90%. CT scan of chest was negative for PE and showed bilateral patchy airspace disease. She was COVID positive. Shortly after admission her O2 requirements increased and she was transferred to ICU for high flow Nasal canula and BIPAP at night. She was treated with dexamethasone and Remdesivir. She was also giving convalescent plasma. She made slow progress but was eventually weaned off HFNC and BIPAP. She currently satting 87% on RA and is requiring 4 Liters of NC. She reports her shortness of breath has improved and she is wanting to go home. She was discharged home on supplemental oxygen and a dexamethasone taper. She is to follow up with [facility]. - Patient Instructions Diet: Heart Healthy Diet - Discharge Plan Prescriptions/Med Rec: Albuterol Sulfate [Albuterol Sulfate Hfa] 8.5 gm IH Q6H PRN #1 hfa.aer.ad PRN Reason: Wheezing dexAMETHasone [Dexamethasone] 2 mg PO DAILY #14 tablet Home Medications: Home Meds Aspirin [[place] Aspirin EC] 81 mg PO DAILY 08/03/16 [History] Brimonidine Tartrate [Brimonidine Tartrate 0.2% Ophth Soln] 1 drop EYEBOTH BID 08/03/16 [History] Dorzolamide HCl/Timolol Maleat [Dorzolamide-Timolol Eye Drops] 1 drop EYEBOTH ACBREAKFAST 08/03/16 [History] Glimepiride [Amaryl] 8 mg PO DAILY 08/03/16 [History] Latanoprost [Xalatan 0.005% Ophth Soln] 1 drop EYEBOTH BEDTIME 08/03/16 [History] Multivitamin [Multivitamins] 1 tab PO DAILY 08/03/16 [History] Cholecalciferol (Vitamin D3) [Vitamin D3] 1,000 units PO DAILY 08/08/16 [His tory] Estradiol Valerate 1 injection IM ASDIRECTED 08/08/16 [History] Furosemide 20 mg PO DAILY 08/08/16 [History] Empagliflozin [Jardiance] 25 mg PO DAILY 06/11/20 [History] Linagliptin [Tradjenta] 5 mg PO DAILY 06/11/20 [History] Loperamide [Imodium] 4 mg PO ASDIRECTED 06/11/20 [History] Losartan [Cozaar] 100 mg PO DAILY 06/11/20 [History] Pioglitazone [Actos] 45 mg PO DAILY 06/11/20 [History] Pregabalin [Lyrica] 75 mg PO TID 06/11/20 [History] traMADol [Ultram] 50 mg PO Q6H PRN 06/11/20 [History] Albuterol Sulfate [Albuterol Sulfate Hfa] 8.5 gm IH Q6H PRN #1 hfa.aer.ad 06/22/20 [Rx] dexAMETHasone [Dexamethasone] 2 mg PO DAILY #14 tablet 06/22/20 [Rx] Oxygen Therapy Mode: Nasal Cannula Oxygen Flow Rate (L/min): 4 Patient Handouts: COVID-19 Frequently Asked Questions, COVID-19, COVID-19: How to Protect Yourself and Others - [facility] Referrals: Lisette Ron [employer] [Ordering Only Provider] - 06/30/20 2:45 pm - Discharge Summary/Plan Comment DC Time >30 min.: No - Patient Data Vitals - Most Recent: Last Vital Signs Temp 35.9 C L 06/22/20 08:00 Pulse 79 06/22/20 02:59 Resp 16 06/22/20 08:00 BP 116/67 06/22/20 08:00 Pulse Ox 93 L 06/22/20 08:00 Weight - Most Recent: 78.1 kg I&O - Last 24 hours: Intake & Output 06/21/20 06/22/20 06/22/20 22:59 06:59 14:59 Intake Total 940 450 Output Total 1300 850 Balance -360 -400 Lab Results - Last 24 hrs: Laboratory Results - last 24 hr 06/21/20 06/21/20 06/21/20 Range/Units 12:35 17:09 21:34 WBC (4.0-11.0) K/uL RBC (4.30-5.90) M/uL Hgb (12.0-16.0) g/dL Hct (36.0-46.0) % MCV (80.0-98.0) fL MCH (27.0-32.0) pg MCHC (31.0-37.0) g/dL RDW Std Deviation (28.0-62.0) fl RDW Coeff of Alec (11.0-15.0) % Plt Count (150-400) K/uL MPV (7.40-12.00) fL Neut % (Auto) (48.0-80.0) % Lymph % (Auto) (16.0-40.0) % [place] % (Auto) (0.0-15.0) % Eos % (Auto) (0.0-7.0) % Baso % (Auto) (0.0-1.5) % Neut # (Auto) (1.4-5.7) K/uL Lymph # (Auto) (0.6-2.4) K/uL [place] # (Auto) (0.0-0.8) K/uL Eos # (Auto) (0.0-0.7) K/uL Baso # (Auto) (0.0-0.1) K/uL Nucleated RBC % /100WBC Nucleated RBCs # K/uL Sodium (136-145) mmol/L Potassium (3.5-5.1) mmol/L Chloride (98-107) mmol/L Carbon Dioxide (21.0-32.0) mmol/L BUN (7.0-18.0) mg/dL Creatinine (0.6-1.0) mg/dL Est Cr Clr Drug Dosing mL/min Estimated GFR (MDRD) ml/min Glucose (74-106) mg/dL POC Glucose 268 H 278 H 250 H (60-110) mg/dL Calcium (8.5-10.1) mg/dL 06/22/20 06/22/20 06/22/20 Range/Units 05:50 05:50 06:13 WBC 9.79 (4.0-11.0) K/uL RBC 4.90 (4.30-5.90) M/uL Hgb 14.0 (12.0-16.0) g/dL Hct 44.4 (36.0-46.0) % MCV 90.6 (80.0-98.0) fL MCH 28.6 (27.0-32.0) pg MCHC 31.5 (31.0-37.0) g/dL RDW Std Deviation 47.4 (28.0-62.0) fl RDW Coeff of Alec 14 (11.0-15.0) % Plt Count 245 (150-400) K/uL MPV 9.50 (7.40-12.00) fL Neut % (Auto) 79.1 (48.0-80.0) % Lymph % (Auto) 14.3 L (16.0-40.0) % [place] % (Auto) 5.3 (0.0-15.0) % Eos % (Auto) 1.1 (0.0-7.0) % Baso % (Auto) 0.2 (0.0-1.5) % Neut # (Auto) 7.7 H (1.4-5.7) K/uL Lymph # (Auto) 1.4 (0.6-2.4) K/uL [place] # (Auto) 0.5 (0.0-0.8) K/uL Eos # (Auto) 0.1 (0.0-0.7) K/uL Baso # (Auto) 0.0 (0.0-0.1) K/uL Nucleated RBC % 0.2 /100WBC Nucleated RBCs # 0 K/uL Sodium 136 (136-145) mmol/L Potassium 3.7 (3.5-5.1) mmol/L Chloride 101 (98-107) mmol/L Carbon Dioxide 26.1 (21.0-32.0) mmol/L BUN 15 (7.0-18.0) mg/dL Creatinine 0.7 (0.6-1.0) mg/dL Est Cr Clr Drug Dosing 74.02 mL/min Estimated GFR (MDRD) > 60.0 ml/min Glucose 206 H (74-106) mg/dL POC Glucose 217 H (60-110) mg/dL Calcium 8.5 (8.5-10.1) mg/dL 06/22/20 Range/Units 11:49 WBC (4.0-11.0) K/uL RBC (4.30-5.90) M/uL Hgb (12.0-16.0) g/dL Hct (36.0-46.0) % MCV (80.0-98.0) fL MCH (27.0-32.0) pg MCHC (31.0-37.0) g/dL RDW Std Deviation (28.0-62.0) fl RDW Coeff of Alec (11.0-15.0) % Plt Count (150-400) K/uL MPV (7.40-12.00) fL Neut % (Auto) (48.0-80.0) % Lymph % (Auto) (16.0-40.0) % [place] % (Auto) (0.0-15.0) % Eos % (Auto) (0.0-7.0) % Baso % (Auto) (0.0-1.5) % Neut # (Auto) (1.4-5.7) K/uL Lymph # (Auto) (0.6-2.4) K/uL [place] # (Auto) (0.0-0.8) K/uL Eos # (Auto) (0.0-0.7) K/uL Baso # (Auto) (0.0-0.1) K/uL Nucleated RBC % /100WBC Nucleated RBCs # K/uL Sodium (136-145) mmol/L Potassium (3.5-5.1) mmol/L Chloride (98-107) mmol/L Carbon Dioxide (21.0-32.0) mmol/L BUN (7.0-18.0) mg/dL Creatinine (0.6-1.0) mg/dL Est Cr Clr Drug Dosing mL/min Estimated GFR (MDRD) ml/min Glucose (74-106) mg/dL POC Glucose 254 H (60-110) mg/dL Calcium (8.5-10.1) mg/dL Med Orders - Current: Current Medications Acetaminophen (Tylenol) 650 mg PO Q4H PRN PRN Reason: Pain (Mild 1-3)/fever Last Admin: 06/21/20 19:45 Dose: 650 mg Documented by: Albuterol/Ipratropium (Combivent Respimat) 0 gm INH Q4H PRN PRN Reason: Dyspnea Last Admin: 06/14/20 10:14 Dose: 1 puff Documented by: Albuterol/Ipratropium (Duoneb 3.0-0.5 Mg/3 Ml) 3 ml NEB Q4HRRT [facility] Last Admin: 06/22/20 09:06 Dose: 3 ml Documented by: Brimonidine Tartrate (Alphagan 0.2% Ophth Soln) 0 ml EYEBOTH BID [facility] Last Admin: 06/22/20 09:02 Dose: 1 drop Documented by: Dexamethasone (Dexamethasone) 6 mg PO DAILY [facility] Last Admin: 06/22/20 09:01 Dose: 6 mg Documented by: Dextrose/Water (Dextrose 50% In Water) 50 ml IVPUSH ONETIME PRN PRN Reason: HYPOGLYCEMIA Last Admin: 06/12/20 06:03 Dose: 50 ml Documented by: Enoxaparin Sodium (Lovenox) 40 mg SUBCUT Q12HR [facility] Last Admin: 06/22/20 09:02 Dose: 40 mg Documented by: Pantoprazole Sodium 40 mg/ (Sodium Chloride) 10 mls @ 300 mls/hr IV DAILY [facility] Last Admin: 06/22/20 09:02 Dose: 300 mls/hr Documented by: Insulin Aspart (Novolog) 0 unit SUBCUT TIDAC [facility]; Protocol Last Admin: 06/22/20 11:51 Dose: 9 units Documented by: Latanoprost (Xalatan 0.005% Ophth Soln) 0 ml EYEBOTH BEDTIME [facility] Last Admin: 06/21/20 21:19 Dose: 2 drop Documented by: Morphine Sulfate (Morphine) 1 mg IVPUSH Q1H PRN PRN Reason: Pain Last Admin: 06/14/20 18:23 Dose: 1 mg Documented by: Dorzolamide/Timolol 2%-0.5% Ophth Soln 10 Ml Bottle 0 each EYEBOTH ACBREAKFAST [facility] Last Admin: 06/22/20 09:03 Dose: Not Given Documented by: Sodium Chloride (Saline Flush) 10 ml FLUSH ASDIRECTED PRN PRN Reason: Keep Vein Open Last Admin: 06/14/20 09:30 Dose: 10 ml Documented by: Sodium Chloride (Saline Flush) 2.5 ml FLUSH ASDIRECTED PRN PRN Reason: Keep Vein Open Last Admin: 06/21/20 20:58 Dose: 2.5 ml Documented by: Discontinued Medications Albuterol/Ipratropium (Duoneb 3.0-0.5 Mg/3 Ml) 3 ml NEB Q4HRRT PRN PRN Reason: Shortness of Breath Last Admin: 06/13/20 20:24 Dose: 3 ml Documented by: Azithromycin (Zithromax) 500 mg PO Q24H [facility] Last Admin: 06/11/20 14:54 Dose: 500 mg Documented by: Dexamethasone (Dexamethasone) 6 mg IVPUSH ONETIME ONE Stop: 06/11/20 10:29 Last Admin: 06/11/20 10:45 Dose: 6 mg Documented by: Dextrose/Water (Dextrose 50% In Water) Confirm Administered Dose 50 ml .ROUTE .STK-MED ONE Stop: 06/12/20 06:00 Last Admin: 06/12/20 06:10 Dose: 50 ml Documented by: Furosemide (Lasix) 20 mg IVPUSH NOW ONE Stop: 06/15/20 11:58 Last Admin: 06/15/20 12:30 Dose: 20 mg Documented by: Furosemide (Lasix) 20 mg IVPUSH ONETIME ONE Stop: 06/16/20 12:16 Last Admin: 06/16/20 13:19 Dose: 20 mg Documented by: Azithromycin 500 mg/ Sodium (Chloride) 250 mls @ 250 mls/hr IV ONETIME YANIQUE Ceftriaxone Sodium/Dextrose 1 (gm/ Premix) 50 mls @ 100 mls/hr IV ONETIME ONE Stop: 06/11/20 14:10 Last Admin: 06/11/20 15:35 Dose: Not Given Documented by: Ceftriaxone Sodium 1 gm/ (Sodium Chloride) 50 mls @ 100 mls/hr IV Q24H [facility] Last Admin: 06/11/20 14:53 Dose: 100 mls/hr Documented by: Remdesivir 100 mg/ Sodium (Chloride) 100 mls @ 100 mls/hr IV Q24H [facility] Last Admin: 06/18/20 13:06 Dose: 100 mls/hr Documented by: Remdesivir 200 mg/ Sodium (Chloride) 250 mls @ 250 mls/hr IV ONETIME ONE Stop: 06/11/20 13:45 Last Admin: 06/11/20 18:59 Dose: 250 mls/hr Documented by: Ceftriaxone Sodium/Dextrose (Rocephin In Dextrose,Iso-Osm 1 Gm/50 Ml) Confirm Administered Dose 50 mls @ as directed .ROUTE .STK-MED ONE Stop: 06/11/20 14:06 Last Admin: 06/11/20 14:38 Dose: Not Given Documented by: Azithromycin 500 mg/ Sodium (Chloride) 250 mls @ 250 mls/hr IV Q24H [facility] Last Admin: 06/21/20 13:54 Dose: 250 mls/hr Documented by: Ceftriaxone Sodium/Dextrose 1 (gm/ Premix) 50 mls @ 100 mls/hr IV Q24H [facility] Last Admin: 06/21/20 15:26 Dose: 100 mls/hr Documented by: Influenza Virus Vaccine (Fluzone Quad 9380-1111 Syringe) 60 mcg IM .ONCE ONE Stop: 06/22/20 11:53 [facility]ulin [facility]olog[facility] Protocol Last Admin: 06/12/20 08:08 Dose: Not Given Documented by: Insulin Aspart (Novolog) 0 unit SUBCUT TIDAC [facility]; Protocol Last Admin: 06/16/20 07:52 Dose: Not Given Documented by: Iopamidol (Isovue Multipack-370 (76%)) 75 ml IVPUSH ONETIME STA Stop: 06/11/20 13:16 Last Admin: 06/11/20 13:15 Dose: 75 ml Documented by: Lorazepam (Ativan) 1 mg IVPUSH ONETIME ONE Stop: 06/13/20 12:30 Last Admin: 06/13/20 13:18 Dose: 1 mg Documented by: Lorazepam (Ativan) Confirm Administered Dose 2 mg .ROUTE .STK-MED ONE Stop: 06/13/20 13:15 Last Admin: 06/13/20 19:15 Dose: Not Given Documented by: Losartan Potassium (Cozaar) 100 mg PO DAILY [facility] Last Admin: 06/13/20 09:28 Dose: 100 mg Documented by: Potassium Chloride (Klor-Con M20) 40 meq PO ONETIME ONE Stop: 06/11/20 13:47 Last Admin: 06/11/20 14:24 Dose: 40 meq Documented by: Potassium Chloride (Klor-Con M20) 40 meq PO ONETIME ONE Stop: 06/17/20 09:29 Last Admin: 06/17/20 10:02 Dose: 40 meq Documented by: Potassium Chloride (Klor-Con M20) 40 meq PO ONETIME ONE Stop: 06/20/20 10:09 Last Admin: 06/20/20 10:59 Dose: 40 meq Documented by: Pregabalin (Lyrica) 75 mg PO TID [facility] Last Admin: 06/13/20 19:16 Dose: Not Given Documented by: Tramadol HCl (Ultram) 50 mg PO Q6H PRN PRN Reason: Pain
[2020-06-22 12:58] VITALS: BP 140/67
== END 2020-06-22 17:00 | disposition home health service (06) | DRG 177 ==
LOC: MW.ED 09:53 → UNDOADMIN 13:44 → MW.MS 13:44 → MW.ICU 06-12 18:12 → MW.MS 06-12 22:00 → MW.ICU 06-13 13:04 → MW.MS 06-13 13:04
PROVIDERS: ADMIT Internal Medicine; ATTEND Internal Medicine
PROC: XW033E5 Introduction of Remdesivir Anti-infective into Peripheral Vein, Percutaneous Approach, New Technology Group 5 (ICD-10-PCS; principal; 2020-06-11)
PROC: 5A0945A Assistance with Respiratory Ventilation, 24-96 Consecutive Hours, High Flow/Velocity Cannula (ICD-10-PCS; 2020-06-11)
PROC: 8E0ZXY6 Isolation (ICD-10-PCS; 2020-06-11)
PROC: 5A09557 Assistance with Respiratory Ventilation, Greater than 96 Consecutive Hours, Continuous Positive Airway Pressure (ICD-10-PCS; 2020-06-11)
PROC: XW13325 Transfusion of Convalescent Plasma (Nonautologous) into Peripheral Vein, Percutaneous Approach, New Technology Group 5 (ICD-10-PCS; 2020-06-16)
DX: U07.1 COVID-19 (principal); J12.89 Other viral pneumonia; J96.01 Acute respiratory failure with hypoxia; I10 Essential (primary) hypertension; Z79.82 Long term (current) use of aspirin; Z79.899 Other long term (current) drug therapy; Z79.84 Long term (current) use of oral hypoglycemic drugs; H54.7 Unspecified visual loss; E66.9 Obesity, unspecified; Z90.49 Acquired absence of other specified parts of digestive tract; Z90.710 Acquired absence of both cervix and uterus; Z68.28 Body mass index [BMI] 28.0-28.9, adult
CPT/HCPCS: 36415; 36430; 36600; 71045; 71045-26; 71275; 71275-26; 80048; 80053; 81001; 82803; 82962; 83605; 83690; 83735; 84100; 84145; 84484; 85025; 85379; 85610; 85730; 86140; 86900; 86901; 87040; 90686; 93005; 94640; 94660; 96374; 99221; 99231; 99232; 99238; 99285; 99285-25; A9270-GY; C9113; J0456; J0696; J1100; J1650; J1815-GY; J2060; J2270; J7050; J7620-GY; J8540; P9017; Q9967; U0002

== ENCOUNTER 2021-09-07 10:29 | Emergency (ER) | payer MEDICARE, MEDICAID ==
--- NOTE | 2021-09-07 10:36 | EDM.PDOC ---
ED HPI GENERAL MEDICAL PROBLEM - General Stated Complaint: CANT KEEP ANYTHING DOWN/ TOSSING AND TURNING IN PM Time Seen by Provider: 09/07/21 10:31 Source of Information: Reports: Patient History Limitations: Reports: No Limitations - History of Present Illness INITIAL COMMENTS - FREE TEXT/NARRATIVE: HISTORY AND PHYSICAL: History of present illness: Patient is a 66-year-old female who presents to the emergency room with complaints of headache, nausea, vomiting, diarrhea and chills. She states she woke up this morning around 3 AM with these symptoms. Denies any abdominal pain although states she is "sore" from retching. Prior to this morning she had felt healthy and was asymptomatic. Patient denies any fever, headache, change in vision, syncope or near syncope. Denies any chest pain, back pain, shortness of breath or cough. Denies any constipation or dysuria. Has not noted any blood in urine or stool. Patient has been eating and drinking appropriately. No recent travel or sick contacts. Review of systems: As per history of present illness and below otherwise all systems reviewed and negative. Past medical history: As per history of present illness and as reviewed below otherwise noncontributory. Surgical history: As per history of present illness and as reviewed below otherwise noncontributory. Social history: See social history for further information Family history: As per history of present illness and as reviewed below otherwise noncontributory. Physical exam: General: Well developed and well nourished 66-year-old female. Alert and orientated x 3. Nontoxic in appearance and in no acute distress. Vital signs are stable and have been reviewed by me. Nursing notes were reviewed. HEENT: Atraumatic, normocephalic, pupils equal and reactive bilaterally, negative for conjunctival pallor or scleral icterus, mucous membranes moist, trachea midline. No drooling or trismus noted. No meningeal signs. No hot potato voice noted. Lungs: Clear to auscultation bilaterally. No wheezes, rales, or rhonchi. Chest nontender. Normal work of breathing, no accessory muscles used. Heart: S1S2, regular rate and rhythm without overt murmur, gallops, or rubs. No JVD. No peripheral edema Abdomen: Soft, nondistended, mild tenderness in epigastrum. Normoactive bowel sounds. Negative for masses or costovertebral tenderness. Skin: Intact, warm, dry. No lesions or rashes noted. Hematologic: No petechiae or purpra. Mucosa appropriate color and normal nail bed color and refill. Extremities: Atraumatic, moves all extremities per self without difficulty or deficits, negative for cords or calf pain. Neurovascular unremarkable. Neuro: Awake, alert, oriented. Cranial nerves II through XII unremarkable. Cerebellum unremarkable. Motor and sensory unremarkable throughout. Exam n onfocal. Psychiatric: Mood and affect are appropriate. Normal thought process. Answering questions appropriately. Please note that the patient was seen and evaluated during the 2019 SARS-CoV-2 novel coronavirus pandemic period. Community viral transmission is ongoing at time of this encounter and the emergency department is operating under pandemic response procedures. Medical Decision Making: Patient is a 66-year-old female who presents to the emergency room with complaints of a headache, nausea, vomiting and diarrhea since this morning. She has not had any sick contacts nor concern for food poisoning. She is a type II diabetic history of hypertension. States she does see her primary care provider routinely for management of these. Physical exam does show some epigastric tenderness with active nausea and vomiting. We will do basic lab work and give her some IV fluid, Zofran and Toradol for the headache. Patient does have a slight leukocytosis of 13.5. I do note that she is on dexamethasone and has been actively vomiting which could cause this to be falsely elevated. I did talk with the patient about today's findings and we discussed doing a CT of the abdomen and pelvis for further evaluation of her white count. Patient states she does feel improved. She would like to forego a CT scan at this time with the intent if her abdominal pain/nausea/vomiting should return she will return to the emergency room for the CT scan at that time. Strict return precautions were reviewed and discussed. We will give a prescription for Zofran. Vital signs are stable. Patient received full liter of fluids. I have talked with the patient about today's findings, in addition to providing specific details for plan of care. Reassessment at the time of disposition demonstrates that the patient is in no acute distress. The patient is stable for discharge, counseling was provided and we discussed in great detail signs and symptoms that would prompt them to return to the Emergency Department. Medication, follow up and supportive care measures were reviewed and discussed. Voices understanding and is agreeable to plan of care. Denies any further questions or concerns at th is time. Diagnostics: CBC, CMP, UA, lipase, COVID/influenza Therapeutics: IV fluid, Zofran Prescription: Zofran Impression: Gastroenteritis Plan: 1. You were evaluated today on an emergent basis. Your symptoms are likely viral. As we discussed if you should have worsening abdominal pain or any new symptoms arise you should return to the emergency room, at that time we could proceed with a CT of the abdomen and pelvis. [place] diet, advance as tolerated. Zofran as needed for nausea. 2. You can alternate Tylenol and ibuprofen as needed for pain and fever management. 3. We encourage you to follow up with your primary care provider and/or recommended specialist in the next few days for re-evaluation and further care/management. 4. If your symptoms should worsen, new symptoms develop or any of the signs and symptoms we discussed should arise please return to the emergency room or call 911 (if needed). Definitive disposition and diagnosis as appropriate pending reevaluation and dana decker of above. abdomen Pain Score (Numeric/FACES): 6 - Related Data Allergies Allergy/AdvReac Type Severity Reaction Status Date / Time No Known Allergies Allergy Verified 09/07/21 10:39 Home Meds: Home Meds Aspirin [[place] Aspirin EC] 81 mg PO DAILY 08/03/16 [History] Brimonidine Tartrate [Brimonidine Tartrate 0.2% Ophth Soln] 1 drop EYEBOTH BID 08/03/16 [History] Dorzolamide HCl/Timolol Maleat [Dorzolamide-Timolol Eye Drops] 1 drop EYEBOTH ACBREAKFAST 08/03/16 [History] Glimepiride [Amaryl] 8 mg PO DAILY 08/03/16 [History] Latanoprost [Xalatan 0.005% Ophth Soln] 1 drop EYEBOTH BEDTIME 08/03/16 [History] Multivitamin [Multivitamins] 1 tab PO DAILY 08/03/16 [History] Cholecalciferol (Vitamin D3) [Vitamin D3] 1,000 units PO DAILY 08/08/16 [History] Estradiol Valerate 1 injection IM ASDIRECTED 08/08/16 [History] Furosemide 20 mg PO DAILY 08/08/16 [History] Empagliflozin [Jardiance] 25 mg PO DAILY 06/11/20 [History] Linagliptin [Tradjenta] 5 mg PO DAILY 06/11/20 [History] Loperamide [Imodium] 4 mg PO ASDIRECTED 06/11/20 [History] Losartan [Cozaar] 100 mg PO DAILY 06/11/20 [History] Pioglitazone [Actos] 45 mg PO DAILY 06/11/20 [History] Pregabalin [Lyrica] 75 mg PO TID 06/11/20 [History] traMADol [Ultram] 50 mg PO Q6H PRN 06/11/20 [History] Albuterol Sulfate [Albuterol Sulfate Hfa] 8.5 gm IH Q6H PRN #1 hfa.aer.ad 06/22/20 [Rx] dexAMETHasone [Dexamethasone] 2 mg PO DAILY #14 tablet 06/22/20 [Rx] Past Medical History HEENT History: Reports: Glaucoma, Other (See Below) Other HEENT History: wears glasses, has top denture Cardiovascular History: Reports: Hypertension Genitourinary History: Reports: None Endocrine/Metabolic History: Reports: Diabetes, Type II, Obesity/BMI 30+ - Past Surgical History Head Surgeries/Procedures: Reports: None GI Surgical History: Reports: Cholecystectomy Female Surgical History: Reports: Hysterectomy, Salpingo-Oophorectomy Social & Family History - Family History Family Medical History: No Pertinent Family History - Caffeine Use Caffeine Use: Reports: Coffee, Soda ED ROS GENERAL - Review of Systems Review Of Systems: Comprehensive ROS is negative, except as noted in HPI. ED EXAM, GI/ABD - Physical Exam Exam: See Below (See dictation) Course - Vital Signs Last Recorded V/S: Last Vital Signs Temp 96.8 F L 09/07/21 10:44 Pulse 82 09/07/21 10:44 Resp 20 09/07/21 10:44 BP 166/64 H 09/07/21 10:44 Pulse Ox 96 09/07/21 10:44 - Orders/Labs/Meds Labs: Laboratory Tests 09/07/21 09/07/21 09/07/21 Range/Units 10:40 11:18 11:30 WBC 13.54 H (4.0-11.0) K/uL RBC 5.45 (4.30-5.90) M/uL Hgb 16.0 (12.0-16.0) g/dL Hct 49.5 H (36.0-46.0) % MCV 90.8 (80.0-98.0) fL MCH 29.4 (27.0-32.0) pg MCHC 32.3 (31.0-37.0) g/dL RDW Std Deviation 50.7 (28.0-62.0) fl RDW Coeff of Alec 15 (11.0-15.0) % Plt Count 254 (150-400) K/uL MPV 10.00 (7.40-12.00) fL Neut % (Auto) 90.6 H (48.0-80.0) % Lymph % (Auto) 8.4 L (16.0-40.0) % [place] % (Auto) 0.9 (0.0-15.0) % Eos % (Auto) 0.0 (0.0-7.0) % Baso % (Auto) 0.1 (0.0-1.5) % Neut # (Auto) 12.3 H (1.4-5.7) K/uL Lymph # (Auto) 1.1 (0.6-2.4) K/uL [place] # (Auto) 0.1 (0.0-0.8) K/uL Eos # (Auto) 0.0 (0.0-0.7) K/uL Baso # (Auto) 0.0 (0.0-0.1) K/uL Nucleated RBC % 0.0 /100WBC Nucleated RBCs # 0 K/uL Sodium (136-145) mmol/L Potassium (3.5-5.1) mmol/L Chloride (98-107) mmol/L Carbon Dioxide (21.0-32.0) mmol/L BUN (7.0-18.0) mg/dL Creatinine (0.6-1.0) mg/dL Est Cr Clr Drug Dosing mL/min Estimated GFR (MDRD) ml/min Glucose (74-106) mg/dL Calcium (8.5-10.1) mg/dL Total Bilirubin (0.2-1.0) mg/dL AST (15-37) IU/L ALT (14-63) IU/L Alkaline Phosphatase (46-116) U/L Total Protein (6.4-8.2) g/dL Albumin (3.4-5.0) g/dL Globulin (2.6-4.0) g/dL Albumin/Globulin Ratio (0.9-1.6) Lipase (73-393) U/L Urine Color YELLOW Urine Appearance CLEAR Urine pH 6.0 (5.0-8.0) Ur Specific [place] 1.025 (1.001-1.035) Urine Protein 100 H (NEGATIVE) mg/dL Urine Glucose (UA) >=1000 (NEGATIVE) mg/dL Urine Ketones 40 H (NEGATIVE) mg/dL Urine Occult Blood SMALL H (NEGATIVE) Urine Nitrite NEGATIVE (NEGATIVE) Urine Bilirubin NEGATIVE (NEGATIVE) Urine Urobilinogen 0.2 (<2.0) EU/dL Ur Leukocyte Esterase NEGATIVE (NEGATIVE) Urine RBC NONE SEEN (0-2/HPF) Urine WBC 0-1 (0-5/HPF) Ur Epithelial Cells FEW (NONE-FEW) Urine Bacteria FEW (NEGATIVE) Urine Mucus LIGHT (NONE-MOD) Influenza Type A RNA NEGATIVE (NEGATIVE) Influenza Type B RNA NEGATIVE (NEGATIVE) SARS-CoV-2 RNA (MARBELLA) NEGATIVE (NEGATIVE) 09/07/21 Range/Units 11:30 WBC (4.0-11.0) K/uL RBC (4.30-5.90) M/uL Hgb (12.0-16.0) g/dL Hct (36.0-46.0) % MCV (80.0-98.0) fL MCH (27.0-32.0) pg MCHC (31.0-37.0) g/dL RDW Std Deviation (28.0-62.0) fl RDW Coeff of Alec (11.0-15.0) % Plt Count (150-400) K/uL MPV (7.40-12.00) fL Neut % (Auto) (48.0-80.0) % Lymph % (Auto) (16.0-40.0) % [place] % (Auto) (0.0-15.0) % Eos % (Auto) (0.0-7.0) % Baso % (Auto) (0.0-1.5) % Neut # (Auto) (1.4-5.7) K/uL Lymph # (Auto) (0.6-2.4) K/uL [place] # (Auto) (0.0-0.8) K/uL Eos # (Auto) (0.0-0.7) K/uL Baso # (Auto) (0.0-0.1) K/uL Nucleated RBC % /100WBC Nucleated RBCs # K/uL Sodium 139 (136-145) mmol/L Potassium 4.0 (3.5-5.1) mmol/L Chloride 102 (98-107) mmol/L Carbon Dioxide 23.9 (21.0-32.0) mmol/L BUN 16 (7.0-18.0) mg/dL Creatinine 0.7 (0.6-1.0) mg/dL Est Cr Clr Drug Dosing 72.10 mL/min Estimated GFR (MDRD) > 60.0 ml/min Glucose 160 H (74-106) mg/dL Calcium 9.4 (8.5-10.1) mg/dL Total Bilirubin 0.7 (0.2-1.0) mg/dL AST 21 (15-37) IU/L ALT 26 (14-63) IU/L Alkaline Phosphatase 109 (46-116) U/L Total Protein 8.4 H (6.4-8.2) g/dL Albumin 4.0 (3.4-5.0) g/dL Globulin 4.4 H (2.6-4.0) g/dL Albumin/Globulin Ratio 0.9 (0.9-1.6) Lipase 115 (73-393) U/L Urine Color Urine Appearance Urine pH (5.0-8.0) Ur Specific [place] (1.001-1.035) Urine Protein (NEGATIVE) mg/dL Urine Glucose (UA) (NEGATIVE) mg/dL Urine Ketones (NEGATIVE) mg/dL Urine Occult Blood (NEGATIVE) Urine Nitrite (NEGATIVE) Urine Bilirubin (NEGATIVE) Urine Urobilinogen (<2.0) EU/dL Ur Leukocyte Esterase (NEGATIVE) Urine RBC (0-2/HPF) Urine WBC (0-5/HPF) Ur Epithelial Cells (NONE-FEW) Urine Bacteria (NEGATIVE) Urine Mucus (NONE-MOD) Influenza Type A RNA (NEGATIVE) Influenza Type B RNA (NEGATIVE) SARS-CoV-2 RNA (MARBELLA) (NEGATIVE) Meds: Medications Discontinued Medications Generic Name Dose Route Start Last Admin Trade Name Freq PRN Reason Stop Dose Admin Sodium Chloride 1,000 mls @ 999 mls/hr 09/07/21 10:48 09/07/21 11:00 Normal Saline IV 09/07/21 11:48 999 mls/hr STAT ONE Administration Ketorolac Tromethamine 30 mg 09/07/21 11:37 09/07/21 11:40 Ketorolac 30 Mg/Ml Sdv IVPUSH 09/07/21 11:38 30 mg ONETIME ONE Administration Ondansetron HCl 4 mg 09/07/21 10:48 09/07/21 11:00 Ondansetron 4 Mg/2 Ml Sdv IVPUSH 09/07/21 10:49 4 mg ONETIME ONE Administration Departure - Departure Time of Disposition: :21 Disposition: Home, Self-Care 01 Clinical Impression: Gastroenteritis - Discharge Information Instructions: Viral Gastroenteritis, Adult, [id number] Forms: ED Department Discharge Additional Instructions: The following information is given to patients seen in the emergency department who are being discharged to home. This information is to outline your options for follow-up care. We provide all patients seen in our emergency department with a follow-up referral. The need for follow-up, as well as the timing and circumstances, are variable depending upon the specifics of your emergency department visit. If you don't have a primary care physician on staff, we will provide you with a referral. We always advise you to contact your personal physician following an emergency department visit to inform them of the circumstance of the visit and for follow-up with them and/or the need for any referrals to a consulting specialist. The emergency department will also refer you to a specialist when appropriate. This referral assures that you have the opportunity for follow-up care with a specialist. All of these measure are taken in an effort to provide you with optimal care, which includes your follow-up. Under all circumstances we always encourage you to contact your private physician who remains a resource for coordinating your care. When calling for follow-up care, please make the office aware that this follow-up is from your recent emergency room visit. If for any reason you are refused follow-up, please contact the [facility] Emergency Department at and asked to speak to the emergency department charge nurse. [facility] [address] [place] [address] [facility] [address] [place] [address] Thank you for choosing the [facility] emergency department in [place] for your medical needs today. It was a pleasure caring for you. Today you were seen in the emergency department for nausea, vomiting and diarrhea. 1. You were evaluated today on an emergent basis. Your symptoms are likely viral. As we discussed if you should have worsening abdominal pain or any new symptoms arise you should return to the emergency room, at that time we could proceed with a CT of the abdomen and pelvis. [place] diet, advance as tolerated. Zofran as needed for nausea. 2. You can alternate Tylenol and ibuprofen as needed for pain and fever management. 3. We encourage you to follow up with your primary care provider and/or recommended specialist in the next few days for re-evaluation and further care/management. 4. If your symptoms should worsen, new symptoms develop or any of the signs and symptoms we discussed should arise please return to the emergency room or call 11 (if needed). Sepsis Event Note (ED) - Focused Exam Vital Signs: Vital Signs Temp Pulse Resp BP Pulse Ox 09/07/21 10:44 96.8 F L 82 20 166/64 H 96
[2021-09-07] MEDS ORDERED: Ondansetron 4 MG/2 ML SDV IVPUSH ONE (10:48)
[2021-09-07] MEDS ORDERED: Sodium Chloride 0.9% 1,000 ML IV ONE (10:48)
[2021-09-07] MEDS ORDERED: Ketorolac 30 MG/ML SDV IVPUSH ONE (11:37)
[2021-09-07 11:42] LABS: CORONAVIRUS COVID-19 NAA NEGATIVE (NEGATIVE); INFLUENZA A NAA NEGATIVE (NEGATIVE); INFLUENZA B NAA NEGATIVE (NEGATIVE)
[2021-09-07 12:08] LABS: BLOOD UREA NITROGEN,BUN 16 mg/dL (7.0-18.0); CARBON DIOXIDE,CO2 23.9 mmol/L (21.0-32.0); CHLORIDE,CL 102 mmol/L (98-107); GLUCOSE RANDOM 160 mg/dL (74-106); LIPASE 115 U/L (73-393); SODIUM,NA 139 mmol/L (136-145)
[2021-09-07 12:31] VITALS: BP 151/64; PULSE 83
== END 2021-09-07 12:45 | disposition home or self-care (01) ==
LOC: MW.ED 10:29
DX: K52.9 Noninfective gastroenteritis and colitis, unspecified (principal); D72.829 Elevated white blood cell count, unspecified; I10 Essential (primary) hypertension; E11.9 Type 2 diabetes mellitus without complications; E66.9 Obesity, unspecified; Z68.30 Body mass index [BMI] 30.0-30.9, adult; Z79.82 Long term (current) use of aspirin; Z79.84 Long term (current) use of oral hypoglycemic drugs; Z79.899 Other long term (current) drug therapy; Z20.822 Contact with and (suspected) exposure to COVID-19
CPT/HCPCS: 0240U; 80053; 81001; 83690; 85025; 96374; 96375; 99284; J1885; J2405; J7030

== ENCOUNTER 2022-04-12 21:10 | Emergency (ER) | payer MEDICARE, MEDICAID ==
[2022-04-12] MEDS ORDERED: Orphenadrine 60 MG/2 ML Inj IM ONE (23:13)
[2022-04-12] MEDS ORDERED: Ketorolac 30 MG/ML SDV IM ONE (23:13)
[2022-04-13 00:57] VITALS: BP 114/55; PULSE 55
== END 2022-04-13 00:57 | disposition home or self-care (01) ==
LOC: MW.ED 21:10
DX: M54.6 Pain in thoracic spine (principal); M54.50 Low back pain, unspecified; E11.9 Type 2 diabetes mellitus without complications; I10 Essential (primary) hypertension; E66.9 Obesity, unspecified; Z68.31 Body mass index [BMI] 31.0-31.9, adult; Z79.899 Other long term (current) drug therapy
CPT/HCPCS: 72128; 96372; 99283; J1885; J2360

== ENCOUNTER 2023-04-08 21:17 | Emergency (ER) | payer MEDICARE, MEDICAID ==
[2023-04-08] MEDS ORDERED: Octyl 2-Cyanoacrylate 1 g/1 mL 1 APPLIC PEN TOP ONE (21:54)
[2023-04-08 22:17] VITALS: BP 120/61; PULSE 63
== END 2023-04-08 22:15 | disposition home or self-care (01) ==
LOC: MW.ED 21:17
DX: I83.892 Varicose veins of left lower extremity with other complications (principal); I10 Essential (primary) hypertension; E11.9 Type 2 diabetes mellitus without complications; E66.9 Obesity, unspecified; Z79.82 Long term (current) use of aspirin; Z79.899 Other long term (current) drug therapy; Z68.29 Body mass index [BMI] 29.0-29.9, adult
CPT/HCPCS: 12001; 99283; A9270